=== PATIENT | male | born 1955 | race Caucasian/White ===

== ENCOUNTER 2020-11-07 08:36 | Outpatient (CLI) | payer MEDICARE, SELFPAY ==
--- NOTE | ~2020-11-07 | XR_ITS ---
MODIFIED ESOPHAGRAM HISTORY: Dysphagia. TECHNIQUE: Modified barium esophagram was performed by speech pathologist under radiologist fluorosco pic guidance. This was recorded on tape. The exam was reviewed on 11/07/2020 11:54 PROSTHETIC LAB TECHNICIAN. The DAP for this procedure was DAP is 1.2 Gycm2. Fluoroscopy time is 1.9 minutes. FINDINGS: Lateral projection of the cervical spine demonstrates normal alignment. Mild spondylosis with ventral osteophytes at multiple levels.. Oral stage of swallowing was within normal limits. Duri ng pharyngeal stage there is reduced laryngeal elevation, reduced tongue base retraction, reduced pha ryngeal squeeze with follicular, piriform sinus and pharyngeal wall residue. There is trace laryngeal penetration which is injected with swallow. No evidence for aspiration. IMPRESSION: 1: Trace laryngeal penetration without aspiration. 2: Please refer to speech pathologist report for additional detail. Reviewed, dictated and finalized at location A. THETIC LAB TECHNICIAN
--- NOTE | 2020-11-08 15:56 | STOPEVAL ---
MODIFIED BARIUM SWALLOW: Thank you for referring Barrington Burgos to [facility].? Attending Provider: MD GEETA Obrien Outpatient Evaluation ([facility]) Start: 11/08/20 15:37 Freq: Status: Active Protocol: Document 11/08/20 15:37 BECHERERT (Rec: 11/08/20 15:56 BECHERERT [email or web address]) Therapy Assessment Status Assessment Status Assessment Status Evaluation Outpatient Past Medical History Past Medical History Source of Past Medical History Patient Neurological History Hx Migraine Yes: MEDS Cardiovascular History Hx Hypertension Yes: MEDS Gastrointestinal History Hx Cholecystectomy Yes Hx Gastroesophageal Reflux Disease Yes: MEDS Hx Irritable Bowel Yes Hx Other Gastrointestinal Disorders Yes: UGI 5 years ago;was told his flap doesn't close all the way Evaluation Information Problem Diagnosis DYSPHAGIA Onset decade long issue Additional Evaluation Detail pt reports difficulty with pills; sore throat off and on for years; pt reports that he feels its related to GERD and drainage. Pain Assessment Timing of Pain Assessment Timing of Pain Assessment Assessment Self Report Self Report Pain Level 0 Pain Score Pain Score 0: Self Report Modified Barium Swallow Evaluation Recent Swallowing History Reports Dysphagia Yes Onset of Dysphagia decades long problem Reported Difficult Consistencies Pills,Solids Intake Method Prior to Swallow Oral Evaluation Diet Prior to Swallow Evaluation Regular, Level 7 Liquid Consistency Prior to Swallow Thin (0) Evaluation Consistency Barium Pill Other Amount with water Method of Presentation Cup Oral Preparatory Symptoms None Oral Phase Symptoms None Pharyngeal Phase Symptoms None Severity of Vallecular Residue None - 0% No Residue Severity of Pyriform Sinus Residue None - 0% No Residue 8 Point Laryngeal Penetration-Aspiration Material Does Not Enter Airway Scale Cervical/Esophageal Symptoms None Thin Uncontrolled 2 Method of Presentation Straw Oral Preparatory Symptoms None Oral Phase Symptoms None Pharyngeal Phase Symptoms Within Functional Limits, Laryngeal Penetration 8 Point Laryngeal Penetration-Aspiration Material Enters the Airway, Scale Remains Above Vocal Folds, is Ejected Cervical/Esophageal Symptoms Within Functional Limits Cervical/Esophageal Phase Comments osteophytes at C 4/5: per
== END 2020-11-07 08:37 | disposition home or self-care (01) ==
PROVIDERS: PCP Internal Medicine; Visit Provider Internal Medicine
DX: R13.10 Dysphagia, unspecified (principal)
CPT/HCPCS: 92611

== ENCOUNTER 2020-11-16 12:20 | Outpatient (RCR) | payer MEDICARE, SELFPAY ==
--- NOTE | 2020-11-16 13:49 | STOPEVAL ---
SPEECH THERAPY INITIAL EVALUATION: Thank you for referring Barrington Burgos to [facility].? The patient is scheduled to be seen for therapy? 1x/week for 4 weeks. Please review, sign, date and return this plan of care TAI. I agree with and certify that the following plan of care is medically necessary. Referring Physician Date Attending Provider: Joni Watt MD *ST Outpatient Evaluation Start: 11/16/20 12:36 Freq: Status: Active Protocol: Document 11/16/20 12:36 BECHERERT (Rec: 11/16/20 13:49 BECHERERT [email or web address]) Therapy Assessment Status Assessment Status Assessment Status Evaluation Outpatient Past Medical History Past Medical History Source of Past Medical History Patient Neurological History Hx Migraine Yes: MEDS propranolol Cardiovascular History Hx Hypertension Yes: MEDS Gastrointestinal History Hx Cholecystectomy Yes Hx Gastroesophageal Reflux Disease Yes: MEDS Hx Irritable Bowel Yes Hx Other Gastrointestinal Disorders Yes: UGI 5 years ago;was told his flap doesn't close all the way Prior Level of Function Prior Swallow Level Prior Intake Method Oral Prior Diet Regular (Level 7 Diet) Prior Liquid Consistency Thin (Level 0 Diet) Pain Assessment Pain Scale Pain Scale Used Numeric (1 - 10) Self Report Pain Assessment Throat Reported Pain Level 1 Pain Frequency Intermittent Other Pain Aggravating Factors was told that it is related to drainage Pain Behaviors None Pain Score Pain Score 1: Self Report Interventions Used Interventions Used By Clinicians Education Bedside Swallow Evaluation General Reports Dysphagia Yes Duration of Dysphagia decade long trouble Related History back surgery (lumbar 3-4) Reported Difficult Consistencies Saliva,Thin Liquids,Solids, Pills Meal Observed Bedside Swallows History of Dysphagia No Other Factors Impacting Dysphagia None History of Pneumonia No Intake Method Prior to Swallow Oral Evaluation Diet Prior to Swallow Evaluation Regular, Level 7 Liquid Consistency Prior to Swallow Thin (0) Evaluation Cognition During Swallowing Alert,Attentive Consistency Solid Consistency Other Swallow Amount cracker Method of Presentation Spoon Behaviors Observed Apparently Normal Swallow Occurrence of Coughing None Vocal Quality After Swallowing Clear Swallow Palpation Results Good Swallow Initiation,Strong
--- NOTE | 2020-12-13 08:56 | PCSTNOTE ---
SPEECH THERAPY DISCHARGE: Attending Provider: Joni Watt MD Patient:Barrington Burgos Date of :1955 Patient has not returned for any further treatments since 11/15/2020, therefore he will be discharged at this time. Patient?s initial visit was on 11/16/2020 09:00 which was his only visit. In that visit the pt was given a HEP with which he verbalized and demonstrated understanding. Thank you for referring this patient to [facility]. Please review, sign, date and return this discharge summary TAI. I have been updated about the patient's current status and I agree with discharge from the above service at this time. Referring Physician Date
== END 2020-12-13 11:14 | disposition home or self-care (01) ==
LOC: ANHST 12:20
PROVIDERS: PCP Internal Medicine; Visit Provider Internal Medicine
DX: R13.10 Dysphagia, unspecified (principal)
CPT/HCPCS: 92610

== ENCOUNTER 2021-06-21 06:44 | Outpatient (CLI) | payer MEDICARE, SELFPAY ==
--- NOTE | ~2021-06-21 | CT_ITS ---
EXAMINATION: CT chest abdomen pelvis w con DATE: 06/21/2021 08:35 CDT INDICATION: Occupational exposure to chemical pollution TECHNIQUE: Computed tomography (CT) of the chest, abdomen, and pelvis was performed with 100 cc Omnip aque 350 intravenous contrast. The dose-length product was 481.13 mGy-cm. Automated exposure control and iterative reconstruction technique were employed. COMPARISON: CT dated 04/22/2018 FINDINGS: CHEST CT: No thoracic lymphadenopathy. No significant pleural or pericardial effusion. Heart size is normal. No evidence for aortic aneurysm or dissection. There is coronary atherosclerosis. There are a few scatt ered calcified granulomas. Dependent atelectasis. No endobronchial lesions. No suspicious pulmonary n odules or masses. ABDOMEN/PELVIS CT: Status post cholecystectomy. There are small subcentimeter hypodensities of the liver, too small to c haracterize, although likely benign. There is a small splenic cyst, also likely benign. The pancreas, adrenal glands and kidneys are unremarkable. No evidence for aortic aneurysm. No lymphadenopathy. No nobstructive bowel gas pattern. There are surgical changes in the right hip. There are degenerative c hanges in both hips. There is a bone marrow donor site in the right ilium. Small fat-containing umbil ical hernia. Colonic diverticulosis without evidence for diverticulitis. There is surgical fusion at L3-4. IMPRESSION: 1. No acute abnormality of the chest, abdomen or pelvis. Reviewed, dictated and finalized at location A.
== END 2021-06-21 06:45 | disposition home or self-care (01) ==
PROVIDERS: PCP Internal Medicine; Visit Provider Internal Medicine
DX: Z77.098 Contact with and (suspected) exposure to other hazardous, chiefly nonmedicinal, chemicals (principal); I10 Essential (primary) hypertension
CPT/HCPCS: 71260; 74177; Q9967

== ENCOUNTER 2021-12-02 21:43 | Emergency (ER) | payer MEDICARE, SELFPAY ==
--- NOTE | ~2021-12-02 | XR_ITS ---
EXAMINATION: XR chest 2V DATE: 12/02/2021 22:49 INDICATION: Shortness of breath. Palpitations. TECHNIQUE: Frontal and lateral views of the chest were obtained. COMPARISON: Chest 2 views 10/20/2019 FINDINGS: There is mild atelectasis in the lower lung zones. No pleural effusion or pneumothorax. The heart size is normal. Surgical clips in the right upper quadrant are likely from cholecystectomy. IMPRESSION: 1. Mild atelectasis in the lower lung zones. Reviewed, dictated and finalized at location A. RIOR DECORATOR
--- NOTE | 2021-12-02 21:44 | ECG_ITS ---
Measurements Intervals [place] Rate: 70 P: [place]: 0 QRS: 40 QRSD: 102 T: 68 QT: 370 QTc: 400 Interpretive Statements SINUS RHYTHM SUPRAVENTRICULAR BIGEMINY INCOMPLETE RIGHT BUNDLE BRANCH BLOCK BASELINE ARTIFACT- I, II, III, AVR, AVL, AVF, V1-V3 ABNORMAL ECG Electronically Signed On 12-03-2021 6:37:37 TECHNICAL MGR by Jaun Sanchez D.O.
[2021-12-02 21:49] VITALS: BP 179/76; PULSE 37; RESP 18; TEMP 36; O2SAT 100
--- NOTE | 2021-12-02 22:00 | ECG_ITS ---
Measurements Intervals [place] Rate: 65 P: 50 [place]: 180 QRS: 41 QRSD: 109 T: 51 QT: 389 QTc: 406 Interpretive Statements SINUS RHYTHM INCOMPLETE RIGHT BUNDLE BRANCH BLOCK MINIMAL Q WAVES- INFERIOR LEADS BASELINE ARTIFACT- II, III, AVR, AVF, V3-V6 BORDERLINE ECG Electronically Signed On 12-03-2021 6:38:06 [employer] OFFICER by Jaun Sanchez D.O.
[2021-12-02] MEDS: ASPIRIN 81 MG CHEWABLE TABLET 324 MG PO (22:09)
[2021-12-02 22:14] LABS: Basophils Percent Auto 0.8 % (0.2-1.2); Eosinophils Absolute Auto 0.1 K/mm3 (0-0.3); Eosinophils Percent Auto 1.9 % (0-4.4); Hematocrit 48.8 % (42.0-52.0); Hemoglobin 15.9 g/dL (14.0-18.0); Immature Granulocyte Absolute 0.01 K/mm3 (0.00-0.031); Immature Granulocyte Percent A 0.2 % (0-0.5); Lymphocytes Absolute Auto 2.32 K/mm3 (0.9-3.2); Lymphocytes Percent Auto 44.6 % (18.3-44.2); Mean Corpuscular HGB Conc 32.6 g/dl (32-36); Mean Corpuscular Hemoglobin 29.8 pg (26-34); Mean Corpuscular Volume 91.4 fl (80-100); Monocytes Absolute Auto 0.5 K/mm3 (0.1-0.6); Monocytes Percent Auto 9.2 % (2.6-8.5); Neutrophils Absolute Auto 2.3 K/mm3 (1.3-6.7); Neutrophils Percent Auto 43.3 % (45.5-73.1); Platelet Count Result 179 k/mm3 (150-375); Red Blood Count 5.34 M/mm3 (4.6-6.20); Red Cell Distribution Width 12.6 % (11.5-14.5); White Blood Count 5.2 K/mm3 (4.5-10.0)
[2021-12-02 22:23] LABS: Prothrombin Time 12.8 Seconds (11.1-14.7)
[2021-12-02 22:24] LABS: Alanine Aminotransferase 76 U/L (4-50); Albumin Level 4.6 g/dL (3.5-5.1); Alkaline Phosphatase 72 U/L (38-126); Anion Gap 2 mmol/L (8-16); Aspartate Amino Transferase 43 U/L (17-59); Bilirubin,Total 0.6 mg/dL (0.2-1.3); Blood Urea Nitrogen 19 mg/dL (9-20); Carbon Dioxide 32 mmol/L (22-30); Chloride 104 mmol/L (98-107); Estimated CRCL calculation 60 ml/min; Estimated Glomerular Filt Rate > 60; Glucose 108 mg/dL (65-110); Lipase 84 U/L (23-300); Partial Thromboplastin Time 29.9 SECONDS (22.3-36.8); Potassium 3.7 mmol/L (3.4-5.0); Sodium 138 mmol/L (137-145)
[2021-12-02 22:29] VITALS: PULSE 73
--- NOTE | 2021-12-02 22:29 | PC.NURSE ---
Pt was in bigeminal rhythm on arrival to ED, upon new EKG pt is in sinus rhythm. Cardiac assessment updated to show change
--- NOTE | 2021-12-02 22:33 | ED.ARRPALP ---
HPI - Arrhythmia/Palpitations General Chief Complaint: Arrhythmia/Palpitations Stated Complaint: irregular heart beat , shortness of breath Time Seen by Provider: 12/02/21 21:58 Source: patient History of Present Illness HPI narrative: Patient presents with palpitations. Reports he had a episode that lasted approximately 1 hour 1 week ago of the past 48 hours he has had episodes with physical activity. He describes a sensation of his heart skipping a beat. Reports a history of ablation 15 years ago is unsure of his underlying diagnosis and has been feeling well since then. Reports mild shortness of breath when his symptoms come on when he denies any recent fevers, cough, congestion, recent travel, recent hospitalizations or surgeries. Related Data Home Medications Medication Instructions Recorded Confirmed tamsulosin 0.4 mg capsule 0.4 mg PO DAILY 11/10/20 06/27/21 colesevelam 625 mg tablet 625 mg PO BID tablet 05/29/21 06/27/21 erenumab-aooe 140 mg/mL 140 mg SUBCUT MONTHLY 09/13/21 subcutaneous auto-injector Allergies Allergy/AdvReac Type Severity Reaction Status Date / Time No Known Allergies Allergy Verified 12/02/21 21:53 Review of Systems Review of Systems: CONSTITUTIONAL: Denies fever, chills, or sweats. EYES: Denies visual changes, redness, or discharge. ENT: Denies rhinorrhea, congestion, sore throat, or otalgia. CARDIOVASCULAR: Denies chest pain, or edema. RESPIRATORY: Denies cough or dyspnea. GASTROINTESTINAL: Denies abdominal pain, nausea, vomiting, or diarrhea. GENITOURINARY: Denies dysuria or hematuria. SKIN: Denies rash or itching. MUSCULOSKELETAL: Denies back pain, joint pain, or myalgia. NEUROLOGIC: Denies headache, numbness, dizziness, or weakness. PSYCHIATRIC: Denies anxiety or depression. All systems reviewed & are unremarkable except as noted in HPI and below PMFSH Past Medical History Medical History Abnormal MRI, pelvis Allergic rhinitis Anxiety Benign essential hypertension Bilateral leg pain BMI 24.0-24.9, adult BMI 25.0-25.9,adult BMI 26.0-26.9,adult BMI 27.0-27.9,adult BPPV (benign paroxysmal positional vertigo) Chest wall pain Chronic back pain Chronic low back pain Chronic sore throat CTS (carpal tunnel syndrome) Dupuytren's contracture of right hand Dysphagia Elevated blood pressure reading without diagnosis of hypertension Elevated glucose Encounter for Medicare annual wellness exam Encounter for routine adult health examination with abnormal findings Encounter for routine adult health examination without abnormal findings Encounter for special screening examination for neoplasm of prostate Follow up Groin pain Hearing loss Hx of supraventricular tachycardia Hyperlipidemia Low back pain LPRD (laryngopharyngeal reflux disease) Migraines Muscle spasms of lower extremity Numbness and tingling of upper and lower extremities of both sides On senior living drug therapy Onychomycosis Paresthesia of both feet Paresthesia of both hands Postsurgical dumping syndrome Raynauds syndrome Toe pain, bilateral Vitamin D deficiency Family History Family History Father Family history of malignant neoplasm of urinary bladder Mother Acute myocardial infarction Family history of cardiovascular disease Family history of heart disease in male family member before age 55 Other Hypertension Social History Social History Smoking status: Never smoker Second hand tobacco smoke exposure: No Alcohol intake: never Substance use: former Substance use type: marijuana Last use: [employer] Spiritual care concerns: No Exam Narrative: GENERAL: Well-appearing, well-nourished, and in no acute distress. HEAD: Normocephalic, atraumatic. EYES: PERRLA and EOMI. ENT: Nares clear, no rhinorrhea or epistaxis. Mucous memb
[2021-12-02 22:36] LABS: Troponin I < 0.012 ng/mL (0.000-0.034)
[2021-12-02 23:36] VITALS: BP 132/88; PULSE 66; RESP 16; O2SAT 97
== END 2021-12-02 23:37 | disposition home or self-care (01) ==
PROVIDERS: Emergency Provider Emergency Medicine; PCP Internal Medicine
DX: R00.2 Palpitations (principal); E78.5 Hyperlipidemia, unspecified; K21.9 Gastro-esophageal reflux disease without esophagitis; I73.00 Raynaud's syndrome without gangrene; E55.9 Vitamin D deficiency, unspecified; M72.0 Palmar fascial fibromatosis [Dupuytren]; F41.9 Anxiety disorder, unspecified; R00.8 Other abnormalities of heart beat; I45.10 Unspecified right bundle-branch block; R06.02 Shortness of breath
CPT/HCPCS: 36415; 71046; 80053; 83690; 84484; 85025; 85610; 85730; 93005; 99284; A9270

== ENCOUNTER 2022-05-27 01:02 | Day surgery (SDC) | payer MEDICARE, SELFPAY ==
[2022-04-05 11:34] VITALS: BMI 25.2
--- NOTE | 2022-05-26 11:34 | PM.HPGS ---
History of Present Illness History of Present Illness Consent: Risks, benefits, and alternatives have been discussed and questions answered. Patient agrees to proceed with procedure. Chief complaint: family hx of colon polyps Narrative: Barrington Burgos is a 66 year old male referred for colon cancer screening. There is a family history of polyps. He has a history of irritable bowel syndrome for which she has been on dicyclomine which does give him relief of pain that he has had on the left side. He has in the past also taking cholestyramine and other bile sequestrant for possible bile salt diarrhea. Review of Systems Review of Systems: All systems reviewed & are unremarkable except as noted in HPI and below PMFSH Past Medical History Medical History Abnormal MRI, pelvis Allergic rhinitis Anxiety Benign essential hypertension Bilateral leg pain BMI 24.0-24.9, adult BMI 25.0-25.9,adult BMI 26.0-26.9,adult BMI 27.0-27.9,adult BPPV (benign paroxysmal positional vertigo) Chest wall pain Chronic back pain Chronic low back pain Chronic sore throat CTS (carpal tunnel syndrome) Dupuytren's contracture of right hand Dysphagia Elevated blood pressure reading without diagnosis of hypertension Elevated glucose Encounter for Medicare annual wellness exam Encounter for routine adult health examination with abnormal findings Encounter for routine adult health examination without abnormal findings Encounter for special screening examination for neoplasm of prostate Follow up Groin pain Hearing loss Hx of supraventricular tachycardia Hyperlipidemia Low back pain LPRD (laryngopharyngeal reflux disease) Migraines Mitral valve regurgitation Muscle spasms of lower extremity Numbness and tingling of upper and lower extremities of both sides On manager long term care drug therapy Onychomycosis Paresthesia of both feet Paresthesia of both hands Postsurgical dumping syndrome Raynauds syndrome SOB (shortness of breath) Toe pain, bilateral Vitamin D deficiency Family History Family History Father Family history of malignant neoplasm of urinary bladder Mother Acute myocardial infarction Family history of cardiovascular disease Family history of heart disease in male family member before age 55 Other Hypertension Social History Social History Smoking status: Never smoker Second hand tobacco smoke exposure: No Alcohol intake: never Substance use: former Substance use type: marijuana Last use: highschool Living arrangements: with family Spiritual care concerns: No Meds Home Medications and Allergies Home Medications Medication Instructions Recorded Confirmed Type erenumab-aooe 140 mg/mL 140 mg subcut MONTHLY 09/13/21 05/22/22 History subcutaneous auto-injector (Aimovig Autoinjector) diclofenac sodium 75 mg 75 mg PO DAILY 04/05/22 05/22/22 History tablet,delayed release escitalopram oxalate 10 mg tablet 10 mg PO DAILY 04/05/22 05/22/22 History ezetimibe 10 mg tablet 10 mg PO DAILY 04/05/22 05/22/22 History gabapentin 600 mg tablet 600 mg PO TID 04/05/22 05/22/22 History irbesartan 150 mg tablet 150 mg PO DAILY 04/05/22 05/22/22 History omeprazole 40 mg capsule,delayed 40 mg PO DAILY 04/05/22 05/22/22 History release pravastatin 80 mg tablet 80 mg PO DAILY 04/05/22 05/22/22 History Allergies Allergy/AdvReac Type Severity Reaction Status Date / Time No Known Allergies Allergy Verified 05/27/22 06:25 Exam Resp: Auscultation: clear to auscultation bilaterally Cardio: Rate: regular rate Rhythm: regular rhythm GI: GI Palp: Yes Soft to palpation and No Tenderness to palpation present (GI) Assessment and Plan Assessment and plan (1) Colon cancer screening: Code(s): Z12.11 - Encounter for screening for malignant neoplasm
[2022-05-27] MEDS: LACTATED RINGERS 1,000 ML 150 ML IV CONT (06:49)
[2022-05-27 06:50] VITALS: BP 132/81; PULSE 55; RESP 16; TEMP 36.3; O2SAT 99
--- NOTE | 2022-05-27 07:01 | WPDANESEPPF ---
Anes - Initial Pre Proc Eval Procedure: Operation Date: 05/27/22 07:30 Proposed Procedures p Screening Colonoscopy - Ernesto Mckeon MD Date/Time: 05/27/22 07:01 Surgeon: Ernesto Mckeon MD Pre Op Diagnosis: family hx of colon polyps Patient Data Age: 66 Gender: M Height: 1.7 m Weight: 71.3 kg Last Vital Signs Temp 36.3 C L 05/27/22 06:50 Pulse 55 L 05/27/22 06:50 Resp 16 05/27/22 06:50 BP 132/81 05/27/22 06:50 Pulse Ox 99 05/27/22 06:50 O2 Del Method Room Air 05/27/22 06:50 Allergies Allergy/AdvReac Type Severity Reaction Status Date / Time No Known Allergies Allergy Verified 05/27/22 06:25 Home Medications Medication Instructions Recorded Confirmed Type erenumab-aooe 140 mg/mL 140 mg subcut MONTHLY 09/13/21 05/22/22 History subcutaneous auto-injector (Aimovig Autoinjector) diclofenac sodium 75 mg 75 mg PO DAILY 04/05/22 05/22/22 History tablet,delayed release escitalopram oxalate 10 mg tablet 10 mg PO DAILY 04/05/22 05/22/22 History ezetimibe 10 mg tablet 10 mg PO DAILY 04/05/22 05/22/22 History gabapentin 600 mg tablet 600 mg PO TID 04/05/22 05/22/22 History irbesartan 150 mg tablet 150 mg PO DAILY 04/05/22 05/22/22 History omeprazole 40 mg capsule,delayed 40 mg PO DAILY 04/05/22 05/22/22 History release pravastatin 80 mg tablet 80 mg PO DAILY 04/05/22 05/22/22 History Patient hx anesthesia problems: none Family hx anesthesia problems: none Results Review: All pre-operative results and documents have been reviewed as part of the pre-operative evaluation. COUNT INCLUDES THE [facility] Past Medical History Medical History (Updated 01/24/22 @ 07:25 by Latanya Damon [facility]) Abnormal MRI, pelvis Allergic rhinitis Anxiety Benign essential hypertension Bilateral leg pain BMI 24.0-24.9, adult BMI 25.0-25.9,adult BMI 26.0-26.9,adult BMI 27.0-27.9,adult BPPV (benign paroxysmal positional vertigo) Chest wall pain Chronic back pain Chronic low back pain Chronic sore throat CTS (carpal tunnel syndrome) Dupuytren's contracture of right hand Dysphagia Elevated blood pressure reading without diagnosis of hypertension Elevated glucose Encounter for Medicare annual wellness exam Encounter for routine adult health examination with abnormal findings Encounter for routine adult health examination without abnormal findings Encounter for special screening examination for neoplasm of prostate Follow up Groin pain Hearing loss Hx of supraventricular tachycardia Hyperlipidemia Low back pain LPRD (laryngopharyngeal reflux disease) Migraines Mitral valve regurgitation Muscle spasms of lower extremity Numbness and tingling of upper and lower extremities of both sides On senior care drug therapy Onychomycosis Paresthesia of both feet Paresthesia of both hands Postsurgical dumping syndrome Raynauds syndrome SOB (shortness of breath) Toe pain, bilateral Vitamin D deficiency Family History Family History Father Family history of malignant neoplasm of urinary bladder Mother Acute myocardial infarction Family history of cardiovascular disease Family history of heart disease in male family member before age 55 Other Hypertension Social History Social History Smoking status: Never smoker Second hand tobacco smoke exposure: No Alcohol intake: never Substance use: former Substance use type: marijuana Last use: highschool Living arrangements: with family Spiritual care concerns: No Anes - Eval Final PreProcedure Day of Procedure 05/27/22 07:01 Patient weight: normal Heart: regular rate and rhythm Lungs: clear to auscultation and normal air movement Airway: Mallampati scale class II Neurological: alert and oriented Last oral intake: >/= 8 hours ASA classification: II Emergent: no Anesthetic plan: proceed Anesthesia type and monitoring: general
[2022-05-27 07:47] VITALS: BP 134/95; PULSE 62; RESP 15; O2SAT 97
[2022-05-27 07:57] VITALS: BP 132/90; PULSE 65; RESP 19; O2SAT 100
[2022-05-27 08:07] VITALS: BP 134/87; PULSE 60; RESP 19; O2SAT 100
== END 2022-05-27 08:20 | disposition home or self-care (01) ==
PROVIDERS: PCP Internal Medicine; Visit Provider Internal Medicine Gastroenterology
PROC: 0DJD8ZZ Inspection of Lower Intestinal Tract, Via Natural or Artificial Opening Endoscopic (ICD-10-PCS; CPT 45378; principal; 2022-05-27 07:30)
DX: Z12.11 Encounter for screening for malignant neoplasm of colon (principal); K57.30 Diverticulosis of large intestine without perforation or abscess without bleeding; K64.8 Other hemorrhoids; F41.9 Anxiety disorder, unspecified; I10 Essential (primary) hypertension; H81.10 Benign paroxysmal vertigo, unspecified ear; E78.5 Hyperlipidemia, unspecified; I34.0 Nonrheumatic mitral (valve) insufficiency; I73.00 Raynaud's syndrome without gangrene; E55.9 Vitamin D deficiency, unspecified; F12.90 Cannabis use, unspecified, uncomplicated; K58.9 Irritable bowel syndrome, unspecified
CPT/HCPCS: G0105; J2704; J7120

== ENCOUNTER 2022-08-21 14:44 | Outpatient (CLI) | payer MEDICARE, SELFPAY ==
--- NOTE | ~2022-08-21 | XR_ITS ---
EXAMINATION: XR femur RT min 2V INDICATION: Right hip pain, other specified disorders of the bone and thigh TECHNIQUE: Two views of the right femur are obtained on five radiographs. COMPARISON: None available FINDINGS: There is chronic plate and screw fixation of the proximal and mid right femur. Bone alignme nt is normal. No fracture is identified. There is moderate to severe osteoarthritis of the right hip. Calcified atherosclerosis is noted. Heterotopic ossification projects posterior to the right knee. IMPRESSION: 1. Moderate to severe osteoarthritis of the right hip without acute osseous abnormality of the right femur. Reviewed, dictated and finalized at location B. IMPRESSION: 1. Moderate to severe osteoarthritis of the right hip without acute osseous abn ormality of the right femur.
--- NOTE | ~2022-08-21 | XR_ITS ---
EXAMINATION: XR hip RT 2V w AP pelvis INDICATION: Right hip pain TECHNIQUE: AP view the pelvis and two views of the right hip are obtained. COMPARISON: None available FINDINGS: There is partially imaged internal stabilization hardware of the right femur. There is mode rate to severe osteoarthritis of the right hip. Bone alignment is normal. No fracture is identified. Surgical changes are noted in the lumbar spine. There are phleboliths of the pelvis. IMPRESSION: 1. Moderate to severe osteoarthritis of the right hip. Reviewed, dictated and finalized at location B.
== END 2022-08-21 14:45 | disposition home or self-care (01) ==
PROVIDERS: PCP Internal Medicine; Visit Provider Internal Medicine
DX: M89.8X5 Other specified disorders of bone, thigh (principal); M16.11 Unilateral primary osteoarthritis, right hip
CPT/HCPCS: 73502; 73552

== ENCOUNTER 2023-04-04 12:13 | Emergency (ER) | payer MEDICARE, SELFPAY ==
[2023-04-04 12:24] VITALS: BP 119/77; PULSE 76; RESP 16; TEMP 36.6; O2SAT 98
[2023-04-04 12:25] VITALS: BP 119/77; PULSE 76; RESP 16; TEMP 36.6; O2SAT 98
--- NOTE | 2023-04-04 12:29 | ED.URI ---
HPI - URI/Sore Throat General Chief Complaint: Upper Respiratory Infection Stated Complaint: Sore Throat Time Seen by Provider: 04/04/23 13:26 Source: patient and RN notes reviewed Mode of arrival: ambulatory Limitations: no limitations History of Present Illness HPI Narrative: 67-year-old male presents with concern for cough, sore throat, nasal congestion. Reports this is day 3 of symptoms. He denies known sick contacts. He denies body aches, chills, sweats, fever. He reports he took NyQuil last night. Reports he slept with a fan for 2 nights in a row which he normally does not MD elicited complaint: cough and sore throat Related Data Home Medications Medication Instructions Recorded Confirmed tamsulosin 0.4 mg capsule (Flomax) 0.4 mg PO BID 09/10/22 10/30/22 Allergies Allergy/AdvReac Type Severity Reaction Status Date / Time No Known Allergies Allergy Verified 04/04/23 12:24 Review of Systems Review of Systems: CONSTITUTIONAL: Denies malaise, chills, sweats, or fever. EYES: Denies visual changes, redness, or discharge. ENT: Reports rhinorrhea, congestion, sore throat. Denies sinus pain, otalgia CARDIOVASCULAR: Denies chest pain, palpitations, or edema. RESPIRATORY: Reports cough. Denies dyspnea. GASTROINTESTINAL: Denies abdominal pain, nausea, vomiting, diarrhea SKIN: Denies rash or itching. MUSCULOSKELETAL: Denies myalgia. NEUROLOGIC: Denies headache. All systems reviewed & are unremarkable except as noted in HPI and below [facility] Past Medical History Medical History (Updated 04/04/23 @ 13:33 by Anna Marie Jimenez NP) Abnormal MRI, pelvis Allergic rhinitis Anxiety Benign essential hypertension Bilateral impacted cerumen Bilateral leg pain BMI 24.0-24.9, adult BMI 25.0-25.9,adult BMI 26.0-26.9,adult BMI 27.0-27.9,adult BMI 27.0-27.9,adult BPPV (benign paroxysmal positional vertigo) Chest wall pain Chronic back pain Chronic low back pain Chronic sore throat CTS (carpal tunnel syndrome) Dizziness DJD (degenerative joint disease) Dupuytren's contracture of right hand Dysphagia Elevated blood pressure reading without diagnosis of hypertension Elevated glucose Elevated PSA, between 10 and less than 20 ng/ml Encounter for Medicare annual wellness exam Encounter for routine adult health examination with abnormal findings Encounter for routine adult health examination without abnormal findings Encounter for special screening examination for neoplasm of prostate Follow up Generalized abdominal pain Groin pain Hearing loss Hx of colonic polyps Hx of supraventricular tachycardia Hyperlipidemia Laceration of left index finger Low back pain LPRD (laryngopharyngeal reflux disease) Migraines Mitral valve regurgitation Muscle spasms of lower extremity Numbness and tingling of upper and lower extremities of both sides On jail drug therapy Onychomycosis Paresthesia of both feet Paresthesia of both hands Postsurgical dumping syndrome Pre-diabetes Raynauds syndrome Right hip pain Sinus congestion Small fiber neuropathy SOB (shortness of breath) Toe pain, bilateral Vitamin D deficiency Family History Family History Father Family history of malignant neoplasm of urinary bladder Mother Acute myocardial infarction Family history of cardiovascular disease Family history of heart disease in male family member before age 55 Other Hypertension Social History Social History Smoking status: Never smoker Second hand tobacco smoke exposure: No Alcohol intake: never Substance use: former Substance use type: marijuana Last use: highschool Lack of Transportation: No Lack of Food: Never True Current Housing: I Have Housing Concerned About Future Housing: No Difficulty Paying Gas/Electric Bills: No Difficulty Paying for Meds: No Currently Unemployed: No Difficulty
== END 2023-04-04 13:38 | disposition home or self-care (01) ==
PROVIDERS: Emergency Provider Nurse Practitioner; PCP Internal Medicine
DX: J06.9 Acute upper respiratory infection, unspecified (principal); I10 Essential (primary) hypertension; E78.5 Hyperlipidemia, unspecified; I34.0 Nonrheumatic mitral (valve) insufficiency; R73.03 Prediabetes
CPT/HCPCS: 87081; 87880; 99213; G0463

== ENCOUNTER 2023-04-17 12:10 | Emergency (ER) | payer MEDICARE, SELFPAY ==
[2023-04-17] VITALS (10 sets, daily range): BP systolic 90–144; BP diastolic 58–85; PULSE 55–70; RESP 14–20; TEMP 36.9; O2SAT 96–100
--- NOTE | ~2023-04-17 | XR_ITS ---
EXAMINATION: XR chest 2V 04/17/2023 14:00 INDICATION: Weakness. Near syncope. PROCEDURE: 2 view chest COMPARISON: Comparison to multiple prior studies sequentially, with oldest reviewed study dated 12/2011. FINDINGS: The lungs are clear. The cardiomediastinal silhouette is within normal limits. There are no pleural effusions. There is no pneumothorax suspected. IMPRESSION: 1: NO ACUTE CARDIOPULMONARY DISEASE. Reviewed, dictated and finalized at location L.
--- NOTE | 2023-04-17 13:52 | ECG_ITS ---
Measurements Intervals [place] Rate: 58 P: 13 [place]: 142 QRS: 26 QRSD: 94 T: 30 QT: 388 QTc: 384 Interpretive Statements SINUS BRADYCARDIA INCOMPLETE RIGHT BUNDLE BRANCH BLOCK BORDERLINE ECG COMPARED TO ECG 12/02/2021 22:18:58 NO DIFFERENCE Electronically Signed On 04-18-2023 13:13:47 CDT by Yuriy Del Cid M.D.
[2023-04-17 14:20] LABS: Basophils Percent Auto 0.5 % (0.2-1.2); Eosinophils Percent Auto 0.2 % (0-4.4); Hematocrit 40.3 % (42.0-52.0); Hemoglobin 13.3 g/dL (14.0-18.0); Immature Granulocyte Absolute 0.01 K/mm3 (0.00-0.031); Immature Granulocyte Percent A 0.2 % (0-0.5); Lymphocytes Absolute Auto 0.34 K/mm3 (0.9-3.2); Lymphocytes Percent Auto 7.8 % (18.3-44.2); Mean Corpuscular Hemoglobin 30.8 pg (26-34); Mean Corpuscular Volume 93.3 fl (80-100); Mean Platelet Volume 9.3 fl (7.4-10.4); Monocytes Absolute Auto 0.6 K/mm3 (0.1-0.6); Monocytes Percent Auto 13.5 % (2.6-8.5); Neutrophils Absolute Auto 3.4 K/mm3 (1.3-6.7); Neutrophils Percent Auto 77.8 % (45.5-73.1); Platelet Count Result 147 k/mm3 (150-375); Red Blood Count 4.32 M/mm3 (4.6-6.20); Red Cell Distribution Width 12.6 % (11.5-14.5); White Blood Count 4.4 K/mm3 (4.5-10.0)
[2023-04-17 14:30] LABS: Alanine Aminotransferase 28 U/L (6-50); Albumin Level 3.8 g/dL (3.5-5.1); Alkaline Phosphatase 53 U/L (38-126); Anion Gap 2 mmol/L (8-16); Aspartate Amino Transferase 25 U/L (17-59); Bilirubin,Total 0.5 mg/dL (0.2-1.3); Blood Urea Nitrogen 21 mg/dL (9-20); Calcium 8.2 mg/dL (8.4-10.2); Carbon Dioxide 29 mmol/L (22-30); Chloride 103 mmol/L (98-107); Estimated CRCL calculation 63 ml/min; Estimated Glomerular Filt Rate > 60; Glucose 96 mg/dL (65-110); Potassium 4.3 mmol/L (3.4-5.0); Sodium 134 mmol/L (137-145)
[2023-04-17] MEDS: SODIUM CHLORIDE 0.9% IV 1,000 ML 999 ML IV CONT (15:39)
[2023-04-17 15:54] LABS: Appearance Urine Cloudy (Clear); Bacteria Urine None Seen /hpf; Bilirubin Urine 1+ (Negative); Blood Urine Negative (Negative); Color Urine Dark Yellow (Yellow); Glucose Urine UA Negative (Negative); Ketones Urine Trace mg/dL (Negative); Leukocyte Esterase Ur Trace LEU/UL (Negative); Mucus Urine Present /lpf; Need Manual Microscopic Reviewed; Nitrate Urine Negative (Negative); Non Pathogenic Casts >20; Protein Urine 2+ mg/dL (Negative); Squamous Epithelial Cell Urine Moderate /hpf (Few); WBC Urine 0-5 /hpf; pH Urine 5.5 (5.0-9.0)
--- NOTE | 2023-04-17 15:58 | ED.WEAKNESS ---
HPI - Weakness General Chief complaint: Weakness Stated complaint: lethargy Time Seen by Provider: 04/17/23 13:37 History of Present Illness HPI Narrative: Patient is a 67-year-old male with a history of hyperlipidemia, hypertension, arthritis presenting with near syncope. Patient states that he started feeling lightheaded last night. States that this morning he was walking through his kitchen when he felt like he was about to faint. States that he was able to make it to his kitchen table and sit down which improved his symptoms. States that he has been feeling generally fatigued lately. States he has had a sore throat and a cough for the last week. States that he was at urgent care a week ago and tested negative for strep and COVID. States that he had an episode of diarrhea couple days ago but no vomiting. No chest pain or abdominal pain. No shortness of breath or leg swelling. No dysuria or fevers. Denies further complaints. Related Data Home Medications Medication Instructions Recorded Confirmed tamsulosin 0.4 mg capsule (Flomax) 0.4 mg PO BID 09/10/22 04/25/23 diclofenac sodium 75 mg 75 mg PO BID 04/25/23 04/25/23 tablet,delayed release Allergies Allergy/AdvReac Type Severity Reaction Status Date / Time levofloxacin [From Levaquin] AdvReac Severe Gastrointestinal Verified 04/24/23 10:01 Upset Review of Systems Review of Systems: All systems reviewed & are unremarkable except as noted in HPI and below PMFSH Past Medical History Medical History (Updated 04/25/23 @ 16:14 by Hilda Blair PA-C) Allergic rhinitis Anxiety Basal cell carcinoma of back Benign essential hypertension Benign prostatic hyperplasia Chronic back pain Colon polyps Degenerative joint disease Elevated PSA Hearing loss Hyperlipidemia Laryngopharyngeal reflux disease Migraines Mitral valve regurgitation Raynauds syndrome Small fiber neuropathy Supraventricular tachycardia Vitamin D deficiency Surgical History Surgical History (Updated 04/25/23 @ 16:12 by Hilda Blair PA-C) History of basal cell carcinoma excision History of cardiac catheterization (12/16/13) Minimal, nonobstructing disease. History of cardiac radiofrequency ablation For supraventricular tachycardia. History of cholecystectomy History of colonoscopy with polypectomy History of lumbar surgery L3-L4 fusion, diskectomy and laminectomy L2-S1. History of open reduction and internal fixation (ORIF) procedure Repair of right femur fracture in 1974. History of repair of left rotator cuff History of tonsillectomy Family History Family History Father Family history of malignant neoplasm of urinary bladder Mother Acute myocardial infarction Family history of cardiovascular disease Family history of heart disease in male family member before age 55 Other Hypertension Social History Social History (Updated 04/25/23 @ 16:13 by Hilda Blair PA-C) Social History: Surrogate medical decision maker: Yvrose Burgos, spouse. Code status: Full code. Smoking status: Never smoker Second hand tobacco smoke exposure: No Alcohol intake: never Substance use: never Substance use type: marijuana Last use: highschool Lack of Transportation: No Lack of Food: Never True Current Housing: I Have Housing Concerned About Future Housing: No Difficulty Paying Gas/Electric Bills: No Difficulty Paying for Meds: No Currently Unemployed: No Education: Bachelor's Degree Difficulty w/ Childcare or Family Care: No Living arrangements: with family Additional living arrangements comments: Lives with spouse in [place]. 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 Spiritual care concerns: No Exam Narrative: GENERAL: Well-appearing, well-nourished, and in no acute distress. HEAD: Normocephalic, atraumatic
[2023-04-17 16:00] LABS: Add Urine Microscopic? YES; Specific Grav Ur 1.036 (1.001-1.035)
[2023-04-17 16:30] LABS: Lactic Acid Reflex 0.7 mmol/L (0.7-2.0)
[2023-04-17 16:38] LABS: INR 1.1; Partial Thromboplastin Time 31.9 SECONDS (22.3-36.8); Prothrombin Time 14.5 Seconds (11.1-14.7)
[2023-04-17 16:46] LABS: Troponin I < 0.012 ng/mL (0.000-0.034)
[2023-04-17 19:11] LABS: Influenza A QL RT-PCR Negative (Negative); Influenza B QL RT-PCR Negative (Negative); RSV RNA, RT-PCR Negative (Negative); SARS-CoV-2 RNA PCR Positive (Negative)
[2023-04-17 19:49] LABS: Troponin I < 0.012 ng/mL (0.000-0.034)
[2023-04-17 22:52] LABS: Troponin I < 0.012 ng/mL (0.000-0.034)
== END 2023-04-17 22:50 | disposition home or self-care (01) ==
PROVIDERS: Emergency Provider Emergency Medicine; PCP Internal Medicine
DX: U07.1 COVID-19 (principal); E86.0 Dehydration; R53.1 Weakness; I10 Essential (primary) hypertension; I34.0 Nonrheumatic mitral (valve) insufficiency; I73.00 Raynaud's syndrome without gangrene; M54.50 Low back pain, unspecified; G89.29 Other chronic pain; M72.0 Palmar fascial fibromatosis [Dupuytren]; R73.03 Prediabetes; G62.9 Polyneuropathy, unspecified; Z86.010 Personal history of colon polyps
CPT/HCPCS: 36415; 71046; 80053; 81001; 83605; 84484; 85025; 85610; 85730; 87637; 93005; 96360; 99284; J7030

== ENCOUNTER 2023-04-23 09:17 | Outpatient (CLI) | payer MEDICARE, SELFPAY ==
--- NOTE | ~2023-04-23 | XR_ITS ---
XR chest 2V 04/23/2023 09:42 Indication: Shortness of breath, fever and cough Procedure: 2 view chest Comparison: 04/17/2023 Findings: Left basilar airspace disease. Heart size normal. Right lung clear. No pleural effusion or pneumothorax. No acute osseous abnormality. Impression: 1: Left basilar airspace disease may represent atelectasis or developing pneumonia. Reviewed, dictated and finalized at location [] Impression: 1: Left basilar airspace disease may represent atelectasis or developing pneumo emperatriz.
[2023-04-23 10:07] LABS: Basophils Percent Auto 0.3 % (0.2-1.2); Eosinophils Percent Auto 0.3 % (0-4.4); Hematocrit 45.1 % (42.0-52.0); Hemoglobin 14.7 g/dL (14.0-18.0); Immature Platelet Fraction Pct 3.9 % (0.9-11.2); Lymphocytes Absolute Auto 0.64 K/mm3 (0.9-3.2); Lymphocytes Percent Auto 21.2 % (18.3-44.2); Mean Corpuscular HGB Conc 32.6 g/dl (32-36); Mean Corpuscular Hemoglobin 30.3 pg (26-34); Monocytes Absolute Auto 0.3 K/mm3 (0.1-0.6); Monocytes Percent Auto 9.6 % (2.6-8.5); Neutrophils Absolute Auto 2.1 K/mm3 (1.3-6.7); Neutrophils Percent Auto 68.6 % (45.5-73.1); Platelet Count Result 150 k/mm3 (150-375); Red Blood Count 4.85 M/mm3 (4.6-6.20)
== END 2023-04-23 09:18 | disposition home or self-care (01) ==
PROVIDERS: PCP Internal Medicine; Visit Provider Internal Medicine
DX: R06.02 Shortness of breath (principal); R50.9 Fever, unspecified; R05.9 Cough, unspecified; R91.8 Other nonspecific abnormal finding of lung field
CPT/HCPCS: 36415; 71046; 85025; 85055

== ENCOUNTER 2023-04-25 11:19 | Observation (INO) | payer MEDICARE, SELFPAY ==
[2023-04-25] VITALS (11 sets, daily range): BP systolic 96–163; BP diastolic 66–89; PULSE 59–74; RESP 15–18; TEMP 35.9–36.4; O2SAT 98–99; BMI 24.3
--- NOTE | ~2023-04-25 | US_ITS ---
EXAMINATION: US carotid duplex BI DATE: 04/25/2023 23:09 INDICATION: Syncope TECHNIQUE: Grayscale, color Doppler, and pulsed Doppler images of the cervical carotid arteries were obtained. The degree of vessel stenosis is placed in one of the following categories: normal, <50%, 5 0-69%, >=70% but less than near-occlusion, near-occlusion, or total occlusion. Note that percent sten osis relative to normal distal artery lumen diameter is indirectly measured from velocity measurement s as described by Zhen, et al. Radiology 2003; [id number]. COMPARISON: None. FINDINGS: RIGHT: The right common carotid artery (CCA) peak systolic velocity (PSV) is 80.7 cm/s. The right internal c arotid artery (ICA) PSV is 88.6 cm/s. The right ICA end-diastolic velocity (EDV) is 32.5 cm/s. The ri t ICA/CCA PSV ratio is 1.1. Grayscale and color Doppler images yield an estimate of less than 50% d iameter reduction from plaque in the ICA. The external carotid artery (ECA) PSV is 87.2 cm/s. There i s antegrade flow in the right vertebral artery. LEFT: The left CCA PSV is 85.8 cm/s. The left ICA PSV is 100.6 cm/s. The left ICA EDV is 25.7 cm/s. The lef t ICA/CCA PSV ratio is 1.2. Grayscale and color Doppler images yield an estimate of less than 50% zayda meter reduction from plaque in the ICA. The ECA PSV is 93.0 cm/s. There is antegrade flow in the left vertebral artery. IMPRESSION: 1. Less than 50% stenosis in the right internal carotid artery. 2. Less than 50% stenosis in the left internal carotid artery. Reviewed, dictated and finalized at Location [facility]. Reviewed, dictated and finalized at location A.
--- NOTE | ~2023-04-25 | CT_ITS ---
EXAMINATION: CT BRAIN W/O DATE: 04/25/2023 12:29 INDICATION: Near syncope TECHNIQUE: Computed tomography (CT) of the head was performed without intravenous contrast. The dose- length product was 605.33 mGy-cm. Automated exposure control and iterative reconstruction technique w ere employed. COMPARISON: MRI dated 06/20/2009 FINDINGS: Normal brain parenchymal volume for age. Normal dhaliwal-white differentiation. No acute intrac ranial hemorrhage, infarction, mass or mass effect. No ventriculomegaly or midline shift. Midline sagittal images demonstrate a normal corpus callosum, c raniovertebral junction and sella turcica. Basilar cisterns are patent. Paranasal sinuses and mastoids are pneumatized. No depressed skull fractures. IMPRESSION: 1. No acute intracranial abnormality. Reviewed, dictated and finalized at location []
--- NOTE | ~2023-04-25 | CT_ITS ---
Clinical Indication: Near syncope, recent pneumonia/Covid CT Angiogram of the Chest with Contrast: Technique: Contiguous sections were acquired throughout the chest after intravenous administration of 100 cc of Omnipaque 350. Coronal maximum intensity projection 3-D reconstructions were created by darlene childs technologist. Dose reduction technique was used on this scan by utilizing automated exposure contr ol and iterative reconstruction technique. The dose-length product (DLP) was 605.33 mGy-cm. COMPARISON: 06/21/2021 Findings: There is no evidence of any significant mediastinal, hilar or axillary lymphadenopathy. There is no f illing defect in the pulmonary arterial tree to suggest pulmonary embolus. There is no evidence of ao rtic dissection or aneurysm. There is no evidence of pleural or pericardial effusion. There is mild groundglass opacity lungs, predominantly dependent distribution, with several periphera l smaller groundglass opacities are also present. Images through the upper abdomen reveal no abnormalities. Impression: No evidence of pulmonary embolus, aortic dissection, or aortic aneurysm. Groundglass opacity in the lungs, as detailed above. Findings are largely appear to represent depende nt atelectatic/hypoventilatory change, superimposed atypical infection or Covid infection is possible . Correlate clinically. Reviewed, dictated and finalized at location M. Impression: No evidence of pulmonary embolus, aortic dissection, or aortic aneurysm. Groundglass opacity in the lungs, as detailed above. Findings are largely appea r to represent dependent atelectatic/hypoventilatory change, superimposed atypi deirdre infection or Covid infection is possible. Correlate clinically.
--- NOTE | 2023-04-25 11:23 | ECG_ITS ---
Measurements Intervals [place] Rate: 58 P: 30 [place]: 129 QRS: 32 QRSD: 96 T: 22 QT: 419 QTc: 414 Interpretive Statements SINUS BRADYCARDIA INCOMPLETE RIGHT BUNDLE BRANCH BLOCK BORDERLINE ECG COMPARED TO ECG 04/17/2023 14:31:26 NO SIGNIFICANT CHANGES Electronically Signed On 04-25-2023 16:14:36 CDT by Yuriy Del Cid M.D.
[2023-04-25 11:39] LABS: Basophils Percent Auto 0.3 % (0.2-1.2); Eosinophils Percent Auto 0.3 % (0-4.4); Hematocrit 42.3 % (42.0-52.0); Hemoglobin 14.1 g/dL (14.0-18.0); Immature Granulocyte Absolute 0.02 K/mm3 (0.00-0.031); Immature Granulocyte Percent A 0.6 % (0-0.5); Lymphocytes Percent Auto 22.3 % (18.3-44.2); Mean Corpuscular HGB Conc 33.3 g/dl (32-36); Mean Corpuscular Hemoglobin 30.2 pg (26-34); Mean Corpuscular Volume 90.6 fl (80-100); Mean Platelet Volume 9.4 fl (7.4-10.4); Monocytes Absolute Auto 0.4 K/mm3 (0.1-0.6); Monocytes Percent Auto 11.8 % (2.6-8.5); Neutrophils Percent Auto 64.7 % (45.5-73.1); Platelet Count Result 200 k/mm3 (150-375); Red Blood Count 4.67 M/mm3 (4.6-6.20); Red Cell Distribution Width 11.8 % (11.5-14.5); White Blood Count 3.1 K/mm3 (4.5-10.0)
--- NOTE | 2023-04-25 11:40 | ED.WEAKNESS ---
HPI - Weakness General Chief complaint: Weakness Stated complaint: WEAKNESS Time Seen by Provider: 04/25/23 11:20 History of Present Illness HPI Narrative: 67-year-old male presents to the emergency room today for complaints of dizziness and lightheadedness. He was seen and evaluated last week on for similar complaints and tested positive for COVID. He had some congestion symptoms but says that this was getting better. He went for a drive in his car this morning and started to get very lightheaded and pulled over to call EMS. He did not pass out all the way but says he felt pretty close to passing out. His blood pressure was systolic in the 80s when EMS arrived. He says that he was actually starting to feel better by the time they checked his blood pressure. He says that he has been having lightheadedness when he goes from sitting to standing over the past few days. He does feel like he may be getting a little dehydrated. He denies having any chest pain or shortness of breath. No nausea, vomiting or abdominal pain. No diarrhea. Related Data Home Medications Medication Instructions Recorded Confirmed tamsulosin 0.4 mg capsule (Flomax) 0.4 mg PO BID 09/10/22 04/22/23 Allergies Allergy/AdvReac Type Severity Reaction Status Date / Time levofloxacin [From Levaquin] AdvReac Severe Gastrointestinal Verified 04/24/23 10:01 Upset Review of Systems Review of Systems: CONSTITUTIONAL: Denies fever, chills, or sweats. reports feeling tired/weak EYES: Denies visual changes, redness, or discharge. ENT: Denies rhinorrhea, congestion, sore throat, or otalgia. CARDIOVASCULAR: Denies chest pain, palpitations, or edema. RESPIRATORY: Denies cough or dyspnea. GASTROINTESTINAL: Denies abdominal pain, nausea, vomiting, or diarrhea. GENITOURINARY: Denies dysuria or hematuria. SKIN: Denies rash or itching. MUSCULOSKELETAL: Denies back pain, joint pain, or myalgia. NEUROLOGIC: As per HPI PSYCHIATRIC: Denies anxiety or depression. [facility] Past Medical History Medical History Abnormal MRI, pelvis Allergic rhinitis Anxiety Benign essential hypertension Bilateral impacted cerumen Bilateral leg pain BMI 24.0-24.9, adult BMI 25.0-25.9,adult BMI 26.0-26.9,adult BMI 27.0-27.9,adult BMI 27.0-27.9,adult BPPV (benign paroxysmal positional vertigo) BPPV (benign paroxysmal positional vertigo) Chest wall pain Chronic back pain Chronic low back pain Chronic sore throat CTS (carpal tunnel syndrome) Dizziness DJD (degenerative joint disease) Dupuytren's contracture of right hand Dysphagia Elevated blood pressure reading without diagnosis of hypertension Elevated glucose Elevated PSA Elevated PSA, between 10 and less than 20 ng/ml Encounter for Medicare annual wellness exam Encounter for routine adult health examination with abnormal findings Encounter for routine adult health examination without abnormal findings Encounter for special screening examination for neoplasm of prostate Follow up Generalized abdominal pain Groin pain Hearing loss Hx of colonic polyps Hx of supraventricular tachycardia Hyperlipidemia Laceration of left index finger Low back pain LPRD (laryngopharyngeal reflux disease) Migraines Mitral valve regurgitation Muscle spasms of lower extremity Numbness and tingling of upper and lower extremities of both sides 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
[2023-04-25 11:54] LABS: Alanine Aminotransferase 36 U/L (6-50); Albumin Level 3.9 g/dL (3.5-5.1); Alkaline Phosphatase 67 U/L (38-126); Anion Gap 6 mmol/L (8-16); Aspartate Amino Transferase 29 U/L (17-59); Bilirubin,Total 0.7 mg/dL (0.2-1.3); Blood Urea Nitrogen 20 mg/dL (9-20); Calcium 8.2 mg/dL (8.4-10.2); Carbon Dioxide 28 mmol/L (22-30); Chloride 104 mmol/L (98-107); Estimated CRCL calculation 54 ml/min; Estimated Glomerular Filt Rate > 60; Glucose 124 mg/dL (65-110); Potassium 4.1 mmol/L (3.4-5.0); Sodium 138 mmol/L (137-145)
[2023-04-25] MEDS: SODIUM CHLORIDE 0.9% IV 1,000 ML 999 ML IV CONT ×2 (12:08→13:43)
[2023-04-25 12:23] LABS: Magnesium 2.2 mg/dL (1.6-2.3)
[2023-04-25 12:25] LABS: Prothrombin Time 13.9 Seconds (11.1-14.7)
[2023-04-25 12:26] LABS: Partial Thromboplastin Time 28.9 SECONDS (22.3-36.8)
[2023-04-25 12:28] LABS: Lactic Acid Reflex 1.5 mmol/L (0.7-2.0)
[2023-04-25 12:35] LABS: NT Pro B Type Natriuretic Pept 153 pg/mL (19.9-100); Troponin I < 0.012 ng/mL (0.000-0.034)
[2023-04-25 12:40] LABS: D Dimer 0.66 ug/mL (<0.48)
[2023-04-25] MEDS: AZITHROMYCIN 500 MG/NS 250 ML 500 MG/250 ML BAG 250 MG IVPB (14:12)
--- NOTE | 2023-04-25 16:02 | PM.IMHP ---
H&P: HPI History of Present Illness Date/Time: 04/25/23 16:15 Chief Complaint: Lightheadedness. Narrative: This is a pleasant 67-year-old male with hypertension, hyperlipidemia, and benign prostatic hyperplasia presented to the emergency department for evaluation of lightheadedness. He has not been feeling well for 7 to 10 days with generalized malaise, sore throat, fatigue, cough, and fever to nearly 102? F. He was seen in urgent care last week and tested negative for strep and COVID however an outpatient COVID test done on 04/17/2023 came back positive. His symptoms have persisted though he has been afebrile for 3 days. His appetite has not been great and he has had nausea the last 5 days or so however he denies vomiting and diarrhea. Last night he started to feel lightheaded when up and walking. At work today he was feeling short of breath with exertion which is unusual for him as he has a very active gentleman. Later in the morning he ran an errand for his job and well driving in the car his vision started to darken and he felt as though he was going to pass out so he pulled over and called 911. He denies syncope, headache, neck ache, chest pain, pleuritic pain, palpitations, lower extremity edema, and calf pain. He was afebrile on arrival to the ED with positive orthostatic vital signs. Labs were significant for a WBC count of 3.1, D-dimer 0.66, sodium 138, BUN 20, creatinine 1.10, lactic acid 1.5, troponin less than 0.012, proBNP 153. Chest CTA showed no evidence of pulmonary embolism, dissection, or aneurysm. Mild ground-glass opacities were noted in the lungs in a predominantly dependent distribution which could represent dependent atelectasis, hypoventilatory change, superimposed atypical infection, or COVID infection. In the ED he was bolused 2 L normal saline and he was started on azithromycin and ceftriaxone for possible concomitant bacterial pneumonia. The patient is eager to get better as he and his plan on going to [place] next week. Review of Systems Review of Systems: Twelve systems were reviewed and are negative except for as per HPI. [facility] Past Medical History Medical History (Updated 04/25/23 @ 16:14 by Hilda Blair PA-C) Allergic rhinitis Anxiety Basal cell carcinoma of back Benign essential hypertension Benign prostatic hyperplasia Chronic back pain Colon polyps Degenerative joint disease Elevated PSA Hearing loss Hyperlipidemia Laryngopharyngeal reflux disease Migraines Mitral valve regurgitation Raynauds syndrome Small fiber neuropathy Supraventricular tachycardia Vitamin D deficiency Surgical History Surgical History (Updated 04/25/23 @ 16:12 by Hilda Blair PA-C) History of basal cell carcinoma excision History of cardiac catheterization (12/16/13) Minimal, nonobstructing disease. History of cardiac radiofrequency ablation For supraventricular tachycardia. History of cholecystectomy History of colonoscopy with polypectomy History of lumbar surgery L3-L4 fusion, diskectomy and laminectomy L2-S1. History of open reduction and internal fixation (ORIF) procedure Repair of right femur fracture in 1974. History of repair of left rotator cuff History of tonsillectomy Family History Family History Father Family history of malignant neoplasm of urinary bladder Mother Acute myocardial infarction Family history of cardiovascular disease Family history of heart disease in male family member before age 55 Other Hypertension Social History Social History (Updated 04/25/23 @ 16:13 by Hilda Blair PA-C) Social History: Surrogate medical decision maker: Yvrose Burgos, spouse. Code status: Full code. Smoking status: Never smoker Second hand tobacco smoke exposure: No Alcohol intake: never Substance use: never Substance use type: marijuana Last use: highschool Lack of Transportation: No Lack of
[2023-04-25] MEDS: LACTATED RINGERS 1,000 ML 75 ML IV CONT (17:50)
[2023-04-25] MEDS: GABAPENTIN 300 MG CAPSULE 600 MG PO (17:51)
[2023-04-25] MEDS: TAMSULOSIN HCL 0.4 MG CAPSULE PO (17:51)
[2023-04-25] MEDS: DICLOFENAC SOD 75 MG TABLET.EC PO (20:14)
[2023-04-26] VITALS (8 sets, daily range): BP systolic 118–156; BP diastolic 70–87; PULSE 50–71; RESP 14–18; TEMP 36.3–36.6; O2SAT 96–100
[2023-04-26 07:01] LABS: Hematocrit 38.5 % (42.0-52.0); Hemoglobin 12.7 g/dL (14.0-18.0); Mean Corpuscular Hemoglobin 30.2 pg (26-34); Mean Corpuscular Volume 91.4 fl (80-100); Mean Platelet Volume 9.3 fl (7.4-10.4); Platelet Count Result 184 k/mm3 (150-375); Red Blood Count 4.21 M/mm3 (4.6-6.20); Red Cell Distribution Width 11.9 % (11.5-14.5); White Blood Count 2.3 K/mm3 (4.5-10.0)
[2023-04-26 07:14] LABS: Anion Gap 1 mmol/L (8-16); Blood Urea Nitrogen 14 mg/dL (9-20); Calcium 7.8 mg/dL (8.4-10.2); Carbon Dioxide 28 mmol/L (22-30); Chloride 110 mmol/L (98-107); Estimated CRCL calculation 82 ml/min; Estimated Glomerular Filt Rate > 60; Glucose 92 mg/dL (65-110); Lactate Dehydrogenase 139 U/L (120-246); Potassium 4.4 mmol/L (3.4-5.0); Sodium 139 mmol/L (137-145)
[2023-04-26 08:03] LABS: Procalcitonin 0.1 ng/mL
[2023-04-26] MEDS: PRAVASTATIN SODIUM 20 MG TABLET 80 MG BY MOUTH (08:09)
[2023-04-26] MEDS: GABAPENTIN 300 MG CAPSULE 600 MG PO ×2 (08:09→13:06)
[2023-04-26] MEDS: EZETIMIBE 10 MG TABLET PO (08:10)
[2023-04-26] MEDS: DICLOFENAC SOD 75 MG TABLET.EC PO (08:10)
[2023-04-26] MEDS: TAMSULOSIN HCL 0.4 MG CAPSULE PO (08:10)
[2023-04-26] MEDS: LACTATED RINGERS 1,000 ML 75 ML IV CONT (13:08)
[2023-04-26] MEDS: AZITHROMYCIN 500 MG/NS 250 ML 500 MG/250 ML BAG 250 MG IVPB (13:35)
--- NOTE | 2023-04-26 14:21 | PM.DS ---
DS: Admitting Diagnosis Discharge Date 04/26/23 Admitting Diagnosis Lightheadedness DS: Discharge Diagnosis Discharge Diagnosis (1) Orthostatic hypotension: Code(s): I95.1 - Orthostatic hypotension Status: Acute (2) COVID-19: Code(s): U07.1 - COVID-19 Status: Acute (3) Abnormal CT scan of lung: Code(s): R91.8 - Other nonspecific abnormal finding of lung field Status: Acute (4) Neutropenia: Code(s): D70.9 - Neutropenia, unspecified Status: Acute (5) Benign essential hypertension: Code(s): I10 - Essential (primary) hypertension Status: Acute (6) Benign prostatic hyperplasia: Code(s): N40.0 - Benign prostatic hyperplasia without lower urinary tract symptoms Status: Acute (7) Hyperlipidemia: Qualifiers: Hyperlipidemia type: mixed hyperlipidemia Qualified Code(s): E78.2 - Mixed hyperlipidemia Code(s): E78.5 - Hyperlipidemia, unspecified Status: Acute DS: Summary Hospital Course Hospital Course: Patient presents for evaluation of lightheadedness. He has had generalized malaise, sore throat, fatigue, cough, and fever to nearly 102? F. He eventually tested positive for COVID on 04/17/23. He denied syncope. He was afebrile on arrival to the ED with positive orthostatic vital signs. WBC count of 3.1, D-dimer 0.66, sodium 138, BUN 20, creatinine 1.10, lactic acid 1.5, troponin less than 0.012, proBNP 153. Chest CTA showed no evidence of pulmonary embolism, dissection, or aneurysm. Mild ground-glass opacities were noted in the lungs in a predominantly dependent distribution which could represent dependent atelectasis, hypoventilatory change, superimposed atypical infection, or COVID infection. In the ED he was given 2 L normal saline and was started on azithromycin and ceftriaxone for possible concomitant bacterial pneumonia. He was admitted to medical floor. Fall precautions initiated. Antihypertensives were held. He was placed on telemetry but no significant dysrhythmias noted. He was placed on isolation. He had no oxygen requirement thus no indication for remdesivir or dexamethasone. Procalcitonin 0.1. Lactic, Ferritin and LDH normal. Troponin negative. EKG showing sinus bradycardia (58) and incomplete Rt BBB but no change from prior. Echo with EF 60-65% and normal diastolic function. Leukopenia is likely related to COVID (but is on terbinafine which can cause neutropenia). ANC was 2015. Repeat WBC 2300. He received IV fluids. He had orthostatic vital signs repeated showing normal blood pressure, no drop in pressure with standing and no lightheadedness. He overall did well and was able to be discharged home on 04/26/23. Status at Discharge Cognitive/behavioral status at discharge: stable Time Spent with Patient Time attestation: Total time spent providing and/or coordinating discharge services: 38 minutes Time spent: Greater than 30 minutes Exam Narrative: AF 97.9 118/70 65 16 99% ra Gen - NARD Chest - CTA bilaterally, nml RR CV - RRR S1/S2 Abd - Soft, NT/ND, Positive BS Ext - No pedal edema Neuro - Alert and oriented. Nonfocal exam. Psych - Nml mood and affect Skin - Warm and dry DS: Data Data Completed and Pending Labs on day of discharge: Labs from last 24 hours 04/26/23 06:48 WBC 2.3 L RBC 4.21 L Hgb 12.7 L Hct 38.5 L MCV 91.4 MCH 30.2 MCHC 33.0 RDW 11.9 Plt Count 184 MPV 9.3 Sodium 139 Potassium 4.4 Chloride 110 H Carbon Dioxide 28 Anion Gap 1 L BUN 14 D Creatinine 0.70 Estim Creat Clear Calc 82 Estimated GFR > 60 Glucose 92 Calcium 7.8 L Magnesium 2.0 Ferritin 214.00 Lactate Dehydrogenase 139 Procalcitonin 0.1 Preliminary micro results at discharge 04/25/23 14:03 Blood Culture - Preliminary Blood 04/25/23 14:03 Blood Culture - Preliminary Blood Discharge Plan Discharge Attending physician on discharge: Rock Kruse
--- NOTE | 2023-04-26 15:53 | PC.NURSE ---
Addendum entered by Karen Pritchett RN 04/26/23 17:12: Pt discharged home with in personal vehicle. Pt transported down in wheel chair to car. Original Note: Pt is A&O4 male who has participated and contributed in plan of care. Pt denies any pain at this time. Pt discharging home. Will continue to monitor pt until discharge.
--- NOTE | 2023-04-26 22:40 | ECHO_ITS ---
Patient Info Name: Barrington Burgos Age: 67 years : 1955 Gender: Male Ht: 67 in Wt: 160 lbs BSA: 1.86 m2 HR: 60 bpm BP: 151 / 86 mmHg Heart Rhythm: Sinus Rhythm Technical Quality: Good Exam Date: 04/26/2023 12:05 PM Exam Location: [facility] Card Pulmonary Patient Status: Inpatient Admit Date: 04/25/2023 Staff Ordering Physician: Hilda Blair PA-C Electric Meter Inspector: Ferny Soto RDCS Attending Provider: Rock Kruse MD Referring Physician: Johnnie VICKERS; Exam Type: CA echo doppler color flow Study Info Indications - near syncope Complete two-dimensional, color flow and Doppler transthoracic echocardiogram is performed. Summary 1. Complete two-dimensional, color flow and Doppler transthoracic echocardiogram is performed. 2. Normal left ventricular size thickness and systolic function. 3. Trivial monteiro valvular regurgitation. Left Ventricle Left ventricular chamber dimension is normal. Left ventricular systolic function is normal, estimated at 60-65%. The left ventricular diastolic function is normal. Right Ventricle Right ventricular chamber dimension is normal. Left Atria Left atrial chamber dimension is normal. Right Atria Right atrial chamber dimension is normal. Aortic Valve The aortic valve is normal. There is trace aortic valve regurgitation. Pulmonic Valve The pulmonic valve is normal. There is trace pulmonic regurgitation. Mitral Valve The mitral valve has normal leaflets. There is trace mitral valve regurgitation. Tricuspid Valve The tricuspid valve leaflets are normal. There is trace tricuspid valve regurgitation. Pericardium/Pleural The pericardium appears normal. Aorta The aortic root size at the sinus of Valsalva is normal. Report Signatures
--- NOTE | 2023-05-02 10:12 | PC.NURSE ---
Blood cx are negative. Dr. Uriah garcia.
== END 2023-04-26 17:00 | disposition home or self-care (01) ==
LOC: ANHED 14:20 → ANH3MEDSUR 15:05
PROVIDERS: Emergency Medicine; Physician Assistant; Admitting Provider Internal Medicine; Emergency Provider Nurse Practitioner Family; PCP Internal Medicine; Visit Provider Internal Medicine
DX: I95.1 Orthostatic hypotension (principal); U07.1 COVID-19; R91.8 Other nonspecific abnormal finding of lung field; D70.9 Neutropenia, unspecified; I10 Essential (primary) hypertension; N40.0 Benign prostatic hyperplasia without lower urinary tract symptoms; E78.2 Mixed hyperlipidemia; R63.0 Anorexia; Z68.24 Body mass index [BMI] 24.0-24.9, adult; I45.10 Unspecified right bundle-branch block; H81.10 Benign paroxysmal vertigo, unspecified ear; R74.8 Abnormal levels of other serum enzymes; R00.1 Bradycardia, unspecified; G89.29 Other chronic pain; M54.9 Dorsalgia, unspecified; R07.0 Pain in throat; E55.9 Vitamin D deficiency, unspecified; Z79.899 Other long term (current) drug therapy; Z82.49 Family history of ischemic heart disease and other diseases of the circulatory system
CPT/HCPCS: 36415; 70450; 71275; 80048; 80053; 82728; 83605; 83615; 83735; 83880; 84145; 84484; 85025; 85027; 85380; 85610; 85730; 87040; 87070; 87205; 93005; 93306; 93880; 96361; 96365; 96375; 96376; 99285; A9270; G0378; J0456; J0696; J7030; J7120; Q9967

== ENCOUNTER 2024-09-08 11:56 | Outpatient (CLI) | payer MEDICARE, SELFPAY ==
--- NOTE | 2024-09-08 14:00 | NEURO_ITS ---
Impression: # Complains of intermittent spasms in all extremities. # Normal motor/sensory Nerve Conduction Study. # Normal needle/EMG exam without evidence of myotonia, fibs or neurogenic changes. # Clinical correlation recommended. Nerve Conduction Studies Anti Sensory Summary Table Stim Site NR Peak (ms) P-T Amp (?V) Site1 Site2 Delta-P (ms) Dist (cm) Alvino (m/s) Left Median Anti Sensory (2-3nd Digit) Wrist 3.0 48.5 Wrist 2-3nd Digit 3.0 14.0 47 Wrist 3.2 28.9 Wrist 2-3nd Digit 3.0 14.0 47 Right Median Anti Sensory (2-3nd Digit) Wrist 3.1 36.0 Wrist 2-3nd Digit 3.1 14.0 45 Wrist 3.0 31.9 Wrist 2-3nd Digit 3.1 14.0 45 Left Radial Anti Sensory (Base 1st Digit) Wrist 2.0 22.3 Wrist Base 1st Digit 2.0 0.0 Right Radial Anti Sensory (Base 1st Digit) Wrist 2.3 11.9 Wrist Base 1st Digit 2.3 0.0 Left Sup Fibular Anti Sensory (Ant Lat Mall) 14 cm 3.0 10.5 14 cm Ant Lat Mall 3.0 16.0 53 Right Sup Fibular Anti Sensory (Ant Lat Mall) 14 cm 3.3 15.6 14 cm Ant Lat Mall 3.3 16.0 48 Left Sural Anti Sensory (Lat Mall) Calf 3.3 18.8 Calf Lat Mall 3.3 16.0 48 Right Sural Anti Sensory (Lat Mall) Calf 3.3 13.4 Calf Lat Mall 3.3 16.0 48 Left Ulnar Anti Sensory (5th Digit) Wrist 2.9 18.6 Wrist 5th Digit 2.9 14.0 48 Right Ulnar Anti Sensory (5th Digit) Wrist 2.8 19.6 Wrist 5th Digit 2.8 14.0 50 Motor Summary Table Stim Site NR Onset (ms) O-P Amp (mV) Site1 Site2 Delta-0 (ms) Dist (cm) Alvino (m/s) Left Median Motor (Abd Poll Brev) Wrist 2.8 9.9 Elbow Wrist 5.2 29.0 56 Elbow 8.0 9.7 Right Median Motor (Abd Poll Brev) Wrist 3.3 7.9 Elbow Wrist 4.8 28.0 58 Elbow 8.1 6.9 Left Peroneal Motor (Vastus Med) Ankle 3.1 1.7 Popit Ankle 8.2 39.0 48 Popit 11.3 1.5 Right Peroneal Motor (Vastus Med) Ankle 3.8 5.8 Popit Ankle 7.5 36.0 48 Popit 11.3 5.0 Left Tibial Motor (Abd Schultz Brev) Ankle 4.0 2.1 Knee Ankle 8.0 39.0 49 Knee 12.0 1.7 Right Tibial Motor (Abd Schultz Brev) Ankle 3.9 7.7 Knee Ankle 7.7 38.0 49 Knee 11.6 5.2 Left Ulnar Motor (Abd Dig Minimi) Wrist 2.7 6.1 A Elbow Wrist 5.3 31.0 58 A Elbow 8.0 5.2 Right Ulnar Motor (Abd Dig Minimi) Wrist 2.3 6.3 A Elbow Wrist 5.0 28.0 56 A Elbow 7.3 6.2 F Wave Studies NR F-Lat (ms) L-R F-Lat (ms) Left Median (Mrkrs) (Abd Poll Brev) 28.44 0.93 Right Median (Mrkrs) (Abd Poll Brev) 29.37 0.93 Left Peroneal (Mrkrs) (EDB) 51.28 0.58 Right Peroneal (Mrkrs) (EDB) 50.70 0.58 Left Tibial (Mrkrs) (Abd Hallucis) 51.56 1.01 Right Tibial (Mrkrs) (Abd Hallucis) 50.55 1.01 Left Ulnar (Mrkrs) (Abd Dig Min) 29.73 0.04 Right Ulnar (Mrkrs) (Abd Dig Min) 29.77 0.04 EMG Side Muscle Nerve Root Ins Act Fibs Amp Dur Recrt Comment Right 1stDorInt Ulnar C8-T1 Nml Nml Nml Nml Nml Right Ext Indicis Radial (Post Int) C7-8 Nml Nml Nml Nml Nml Right Ext Digitorum Radial (Post Int) C7-8 Nml Nml Nml Nml Nml Right BrachioRad Radial C5-6 Nml Nml Nml Nml Nml Right PronatorTeres Median C6-7 Nml Nml Nml Nml Nml Right Abd Poll Brev Median C8-T1 Nml Nml Nml Nml Nml Right ABD Dig Min Ulnar C8-T1 Nml Nml Nml Nml Nml Right AntTibialis Dp Br Fibular L4-5 Nml Nml Nml Nml Nml Right Gastroc Tibial S1-2 Nml Nml Nml Nml Nml Right Fibularis Long Sup Br Fibular L5-S1 Nml Nml Nml Nml Nml Right Flex Dig Long Tibial L5-S2 Nml Nml Nml Nml Nml Right Ext Dig Brev Dp Br Fibular L5, S1 Nml Nml Nml Nml Nml Right QuadratusFem QuadFemoris L4-5, S1 Nml Nml Nml Nml Nml Left AntTibialis Dp Br Fibular L4-5 Nml Nml Nml Nml Nml Left Gastroc Tibial S1-2 Nml Nml Nml Nml Nml Left Fibularis Long Sup Br Fibular L5-S1 Nml Nml Nml Nml Nml Left Flex Dig Long Tibial L5-S2 Nml Nml Nml Nml Nml Left Ext Dig Brev Dp Br Fibular L5, S1 Nml Nml Nml Nml Nml Left QuadratusFem QuadFemoris L4-5, S1 Nml Nml Nml Nml Nml Left 1stDorInt Ulnar C8-T1 Nml Nml Nml Nml Nml Left Ext Indicis Radial (Post Int) C7-8 Nml Nml Nml Nml Nml Left Ext Digitorum Radial (Post Int) C7-8 Nml Nml Nml Nml Nml Left BrachioRad Radial C5-6 Nml Nml Nml Nml Nml Left PronatorTeres Median C6-7 Nml Nml Nml Nml Nml Left Abd Poll Brev Median C8-T1 Nml Nml Nml Nml Nml Left ABD Dig Min Ulnar C8-T1 Nml Nml Nml Nml Nml Right Biceps Musculocut C5-6 Nml Nml Nml Nml Nml Right Triceps Radial C6-7-8 Nml Nml Nml Nml Nml Right Deltoid Axillary C5-6 Nml Nml Nml Nml Nml Left Biceps Musculocut C5-6 Nml Nml Nml Nml Nml Left Triceps Radial C6-7-8 Nml Nml Nml Nml Nml Left Deltoid Axillary C5-6 Nml Nml Nml Nml Nml MTDD
== END 2024-09-08 11:57 | disposition home or self-care (01) ==
LOC: ANHNEURO 11:58
PROVIDERS: PCP Internal Medicine; Visit Provider Internal Medicine
DX: G62.9 Polyneuropathy, unspecified (principal)
CPT/HCPCS: 95886; 95913

== ENCOUNTER 2024-10-13 11:30 | Outpatient (CLI) | payer MEDICARE, SELFPAY ==
[2024-10-13 12:24] LABS: Add Urine Microscopic? NO; Appearance Urine Clear (Clear); Bilirubin Urine Negative (Negative); Blood Urine Negative (Negative); Color Urine Yellow (Yellow); Glucose Urine UA Negative (Negative); Ketones Urine Negative (Negative); Leukocyte Esterase Ur Negative LEU/UL (Negative); Nitrate Urine Negative (Negative); Protein Urine Negative (Negative); Specific Grav Ur 1.022 (1.001-1.035); Urobilinogen Urine 0.2 mg/dL (<2.0); pH Urine 5.5 (5.0-9.0)
== END 2024-10-13 11:31 | disposition home or self-care (01) ==
PROVIDERS: PCP Internal Medicine; Visit Provider Internal Medicine
DX: R39.9 Unspecified symptoms and signs involving the genitourinary system (principal)
CPT/HCPCS: 81003

== ENCOUNTER 2025-01-25 10:26 | Outpatient (CLI) | payer MEDICARE, SELFPAY ==
--- NOTE | ~2025-01-25 | CT_ITS ---
EXAMINATION: CT abdomen pelvis w con DATE: 01/25/2025 10:58 INDICATION: Low abdominal pain, unspecified. TECHNIQUE: Computed tomography (CT) of the abdomen and pelvis was performed with 100 mL Omnipaque 350 intravenous contrast. Automated exposure control and iterative reconstruction technique were employe d. The dose-length product was 349.97 mGy-cm. COMPARISON: CT abdomen and pelvis 06/21/2021 FINDINGS: The visualized portions of the lung bases demonstrate mild atelectasis. No pleural effusion . The heart size is normal. There are coronary artery calcifications. No pericardial effusion. There are cysts in the liver measuring up to 7 mm. There are changes of cholecystectomy. The spleen, pancre as, adrenal glands, and right kidney are normal. There are cysts in left kidney measuring up to 5 mm. There are bilateral inguinal hernias containing fat. There is diverticulosis of the colon without ev idence of diverticulitis. There are no dilated loops of bowel. The appendix is normal. There are no p athologically enlarged lymph nodes. There is an umbilical hernia containing fat. There is no free int raperitoneal fluid. There is an old healed fracture of right femur with internal fixation. There is a total right hip arthroplasty. There are changes of anterior posterior fusion procedures at L3-L4. Th ere is severe lumbar spondylosis and moderate thoracic spondylosis. IMPRESSION: 1. Umbilical hernia and bilateral inguinal hernias containing fat. Reviewed, dictated and finalized at location A.
--- NOTE | ~2025-01-25 | US_ITS ---
EXAMINATION: US scrotum doppler DATE: 01/25/2025 11:29 INDICATION: Lower abdominal pain. TECHNIQUE: Testicular sonogram utilizing grayscale and Doppler COMPARISON: None. FINDINGS: The right testis measures 4.2 x 3.2 x 2.4 cm. The left testis measures 3.8 x 5.3 x 2.5 cm. Symmetric normal grayscale appearance to both testes. There is normal vascular flow to both testes. 8 mm anecho ic right epididymal cyst. The right epididymis is otherwise normal with normal vascular flow. The lef t epididymis is normal with normal vascular flow. There is no varicocele or hydrocele. IMPRESSION: 1. Incidental 8 mm right epididymal cyst. Otherwise normal scrotal ultrasound. Reviewed, dictated and finalized at location B.
[2025-01-25 10:57] LABS: Estimated Glomerular Filt Rate > 60
--- OUTSIDE RECORDS SUMMARY | 2025-01-25 12:20 | XMS_ITS | Continuity of Care Document ---
Author Organization [facility] Address [address] [place] [address] Phone Care Team Providers Care Confectionery Drops Machine Operator Name Role Phone Meghan Wiley MD Unavailable Unavailable Allergies, Adverse Reactions, Alerts Substance Reaction Status Criticality No Known Allergies Active No Inform ation Medications Medication Instructions Dosage Effective Dates (start - stop) Status Comments gabapentin 300 mg capsule take 1 capsule by oral route 3 times every day 300 MG - Active acetaminophen 500 mg tablet take 2 tablet by oral route three times a day as needed for pain - Active PROPRANOLOL HCL (unknown strength) Not Available - Active VALSARTAN (unknown strength) Not Available - Active DICLOFENAC SODIUM ER (unknown strength) Not Available - Active Procedures Procedure Date Fluoro For Spine Injection Procedures De Office/outpatient visit,est, mod 2016 Injection, HANSEL, Lumbar Or Sacral, W/ Lo ging Omnipaque, 300-399 mg/ml, per ml 2016 Depo Medrol Methylprednisolone 40 MG inj Depo Medrol Methylprednisolone 40 MG inj Injection Kit Office/outpatient visit,est, mod 2016 Fluoro For Spine Injection Procedures Ma Injection, HANSEL, Lumbar Or Sacral, W/ Lo ging Omnipaque, 300-399 mg/ml, per ml 2016 Depo Medrol Methylprednisolone 40 MG inj Depo Medrol Methylprednisolone 40 MG inj Injection Kit Office/outpatient visit,high yoav Advance Directives Directive Yes / No Effective Date File Name No Information Encounters Encounter Description Practice Location Reason(s) For Visit Diagnoses Date Provider Providers Copied on Encounter [facility], [address] [place] [address], [id number], [phone] [facility] No Information 8 Paracha Meghan. [address] [address], [place], [address], [place]. tel: [phone] [facility], [address], [id number], [place] [phone] [facility] No Information 8 Paracha Meghan. [address], [address], [place]. tel: [phone] Office/outpa tient visit,est, mod [facility], [address], [id number], [place] [phone] [facility] Lumbar (chief complaint) Low back painRadiculopathy , lumbar regionOther spondylosis with radiculopathy, lumbosacral regionOther chronic pain 7 Paracha Meghan. [address], [address], [place]. tel: [phone] [facility], [address], [id number], [place] [phone] [facility] Radiculopathy, lumbar region 7 Paracha Meghan. [address], [address], [place]. tel: [phone] Office/outpa tient visit,est, mod [facility], [address], [id number], [place] [phone] [facility] Lumbar (chief complaint) Other chronic painLow back painOther spondylosis with radiculopathy, lumbosacral regionSpinal stenosis, lumbar regionRadiculopat hy, lumbar region 201 7 Paracha Meghan. [address], [address], [place]. tel:[phone] [facility], [address], [id number], [place] [phone] [facility] Lumbar (chief complaint) Radiculopathy, lumbar regionLow back painOther chronic painSpinal stenosis, lumbar regionOther spondylosis with radiculopathy, lumbosacral region Jan-0 6-201 7 Paracha Meghan. [address], [address], [place]. tel:[phone] Office/outpa tient visit,new, high [facility], [address], [id number], [place] [phone] [facility] Lumbar (chief complaint) LumbagoRadiculopa thy, lumbar regionSpinal stenosis, lumbar regionOther spondylosis with radiculopathy, lumbosacral regionOther chronic painOther intervertebral disc degeneration of lumbosacral regionOther intervertebral disc displacement, lumbar regionSpondylolis thesis of lumbar region 0 2 7 Paracha Meghan. [address], [address], [place]. tel:[phone] Referring Provider: Luis Fernando Turner MD, [facility], [address] . tel:[phone] Family History Family Member Type Diagnosis Age At Onset Mother Problem (finding) Heart Trouble Father Problem (finding) malignant neoplasm of [facility] bladder Father Problem (finding) hypertension Payers Payer name Insurance type Covered alliance party ID Authoriza tion(s) [facility] [id number] Social History Type Description Quantity Date Captured Comments Sex Male Smoking Status No Information Chief Complaint And Reason For Visit No Information Reason For Referral Reason For Referral No Information History Of Present Illness Encounter Date Complaint History Of Prese nt Illness Lumbar Patient presents for a Caudal Epidural Steroid Injection Lumbar Timbo comes into the office for his lumbar spine pain Lumbar Barrington comes into the office for his lumbar spine pain Lumbar Barrington comes into the office for his lumbar spine, bilateral leg and buttock pain. Functional Status Date Functional Assessmen t No Information Instructions Date Instruction Additional Infor mation No Information Assessments Type Assessment Date No Information Patient Care Teams Name Effective Dates (start - stop) Status Members No Information
--- OUTSIDE RECORDS SUMMARY | 2025-01-25 12:20 | XMS_ITS | Continuity of Care Document ---
Author Organization [facility] Address [address] [place] [address] Phone Care Team Providers Care Pearl Digger Name Role Phone Clint Hilario MD Unavailable Unavailable Procedures Procedure Date INJ SPINE LUM/SAC W/ IMAGING GUIDANCE Nh SURGICAL TRAY LOW OSMOLAR CONTRAST (200 TO 299 MG IODI NE) Injection, Triamcinolone Acetonide, 10mg INJ SPINE LUM/SAC W/ IMAGING GUIDANCE SURGICAL TRAY LOW OSMOLAR CONTRAST (200 TO 299 MG IODI NE) Injection, Triamcinolone Acetonide, 10mg Advance Directives Directive Yes / No Effective Date File Name No Information Encounters Encounter Description Practice Location Reason(s) For Visit Diagnoses Date Provider Providers Copied on Encounter [facility], [address], [place], [place], [id number], [place] tel:[phone] [facility] No Information Yanelis Jaramillo. [address], [place], [place], [id number], [place]. tel:[phone] Referring Provider: Yuriy De La Torre DO, [address], [place], [address]. tel:[phone] [facility], [address], [place], [place], [id number], tel:[phone] [facility] No Information Aflred Ferris. [address], [place], [place], [id number], [place]. tel:[phone] Referring Provider: Yuriy De La Torre DO, [address], [place], [place], . tel:[phone] Family History Family Member Type Diagnosis Age At Onset No Information Payers Payer name Insurance type Covered democrat ID Authoriza tion(s) BS ACCESS [id number] MEDICARE MB [id number] [employer] MDCR SUPPLEMENT CI [id number] Social History Type Description Quantity Date Captured Comments Sex Male Smoking Status No Information Chief Complaint And Reason For Visit No Information Reason For Referral Reason For Referral No Information History Of Present Illness Encounter Date Complaint History Of Prese nt Illness No Information Functional Status Date Functional Assessmen t No Information Instructions Date Instruction Additional Infor mation No Information Assessments Type Assessment Date No Information Patient Care Teams Name Effective Dates (start - stop) Status Members No Information
--- OUTSIDE RECORDS SUMMARY | 2025-01-25 12:20 | XMS_ITS | Clinical Summary ---
Author Organization [facility] Address [address] [address] Care Team Providers Care Blurb Writer Name Role Phone Joni Watt MD Primary Care Provider [phone] Source Comments [facility],non-owned Affiliates and Associated Physician Practices is amultiple site organization consisting of ambulatory clinics and hospital sitesin [place], [place], [place] and [place]. This disclosure is being madepursuant to the Care Everywhere program and may not contain all information available regarding this patient. Last updated 18.[facility] Allergies No known active allergies Medications * Be aware that medications may not be up to date on this document. Alwaysverify current medications with the patient. Medication Sig Dispensed Refills Start Date End Date Status colesevelam (WELCHOL) 625 MG tablet TAKE 6 TABLETS BY MOUTH EVERY DAY 11/07/2020 Active pravastatin (PRAVACHOL) 40 MG tablet TK 1 T PO D 07/11/2020 Active irbesartan (AVAPRO) 150 MG tablet 1 (one) tablet once daily 06/18/2021 Active diclofenac sodium XR 24hr (VOLTAREN XR) 100 MG tablet TK 1 T PO BID 07/17/2020 Acti ve tamsulosin (FLOMAX) 0.4 MG capsule Take 1 (one) capsule by mouth once daily 06/12/2021 Active omeprazole (PRILOSEC) 20 MG capsule Take 20 mg by mouth daily before breakfast Active escitalopram (LEXAPRO) 10 MG tablet 10 mg once daily 06/27/2021 Active ezetimibe (Zetia) 10 MG tablet Take 1 (one) tablet by mouth once daily 05/25/2022 Active terbinafine (LamISIL) 250 MG tablet Take 1 (one) tablet by mouth once daily Active gabapentin (Neurontin) 600 MG tablet Take 1 (one) tablet by mouth 3 times daily 270 tablet 3 08/30/2024 Active Social History Tobacco Use Types Packs/Day Years Used Date Smoking Tobacco: Never Smokeless Tobacco: Never Tobacco Cessation:Counseling Given: No Alcohol Use Standard Drinks/Week Comments Not Currently 0 (1 standard drink = 0.6 oz pur e alcohol) Sex and Gender Information Value Date Recorded Sex Assigned at Not on file Gender Identity Not on file Sexual Orientation Not on file Last Filed Vital Signs Vital Sign Reading Time Taken Comments Blood Pressure 156/96 08/30/2024 12:59 PM CDT Pulse 79 08/30/2024 12:59 PM CDT Temperature 36.8 C (98.2 F) 06/17/2021 8:55 AM CDT Respiratory Rate 17 06/17/2021 11:30 AM CDT Oxygen Saturation 97% 06/07/2022 10:00 AM CDT Inhaled Oxygen Concentration - - Weight 74.8 kg (165 lb) 08/30/2024 12:59 PM CDT Height 170.2 cm (5' 7 ) 08/30/2024 12:59 PM CDT Body Mass Index 25.84 08/30/2024 12:59 PM CDT Plan of Treatment Upcoming Encounters Date Type Department Care Team (Late st Contact Info) Description 03/30/2025 10:00 AM CDT Office Visit [facility] [address] [place] [address] Ferny Rubi MD [address] [facility] [address] [place] [id number] Health Maintenance Due Date Last Done Comments COLOGUARD (AGES 45-75) - COL ON CA SCREENING 1955 COLON MONITORING 1955 COLONOSCOPY - COLON CA SCREENING 1955 CT COLONOGRAPHY - COLON CA SCREENING 1955 Colorectal Cancer Screening 1955 FIT - COLON CA SCREENING 1955 FLEX SIG - COLON CA SCREENING 1955 MEDICARE AWV 12 MONTHS 1955 HEPATITIS C SCREENING 09/09/1973 DTAP/TDAP/TD VACCINES (1 - Tdap) 1974 PNEUMOCOCCAL VACCINE 50+ (1 of 1 - PCV) 2005 ZOSTER VACCINE (1 of 2) 2005 SCREENING FOR DIABETES 06/16/2024 06/16/2021 COVID-19 VACCINE (3 - 2023-2 5 season) 2024 02/07/2021, 01/24/2021 INFLUENZA VACCINE (#1) 2024 DEPRESSION SCREENING 11/03/2024 Respiratory Syncytial Virus (RSV) Vaccine Pt: or over 60 yrs (1 - 1-dose 75+ series) 2030 HEPATITIS B VACCINE Aged Out No longe r eligible based on patient's age to complete this topic HIB VACCINE Aged Out No longer eligi ble based on patient's age to complete this topic HPV VACCINE Aged Out No longer eligi ble based on patient's age to complete this topic MENINGOCOCCAL (Group B) VACCINE SHARED DECISION-MAKING Aged Out No longer eligible based on patient's age to complete this topic MENINGOCOCCAL GROUPS A/C/Y/W VACCINE Aged Out No longer eligible b ased on patient's age to complete this topic Procedures Procedure Name Priority Date/Time Associated Diagnosis Comments COMPREHENSIVE METABOLIC PANEL STAT 06/16/2021 4:12 PM CDT from Last 3 Months or Most Recently Relevant to Health Maintenance Results * (ABNORMAL) COMPREHENSIVE METABOLIC PANEL (06/16/2021 4:12 PM CDT) Glucose 104 70 - 105 mg/dL 06/16/2021 4:36 PM CDT [facility] Sodium 139 136 - 145 mmol/L 06/16/2021 4:36 PM CDT [facility] Potassium 5.1 3.5 - 5.1 mmol/L 06/16/2021 4:36 PM CDT [facility] Chloride 106 98 - 107 mmol/L 06/16/2021 4:36 PM CDT [facility] CO2 22(L) 23 - 31 mmol/L 06/16/2021 4:36 PM CDT [facility] Calcium 9.5 8.4 - 10.4 mg/dL 06/16/2021 4:36 PM CDT [facility] Anion Gap 11 8 - 18 mmol/L 06/16/2021 4:36 PM CDT [facility] BUN 17 8.4 - 25.7 mg/dL 06/16/2021 4:36 PM CDT [facility] Creatinine 1.06 0.72 - 1.25 mg/dL 06/16/2021 4:36 PM CDT [facility] Alkaline Phosphatase 66 40 - 150 U/L 06/16/2021 4:36 PM CDT [facility] ALT 14 0 - 61 U/L 06/16/2021 4:36 PM CDT [facility] AST 17 5 - 34 U/L 06/16/2021 4:36 PM CDT [facility] Protein Total 7.0 6.4 - 8.3 gm/dL 06/16/2021 4:36 PM CDT [facility] Albumin 4.1 3.2 - 4.6 gm/dL 06/16/2021 4:36 PM CDT [facility] Bilirubin Total 0.8 0.2 - 1.2 mg/dL 06/16/2021 4:36 PM CDT [facility] eGFR by MDRD >60 >60 mL/min/1.7 3m2 06/16/2021 4:36 PM CDT [facility] eGFR by MDRD >60 >60 mL/min/1.7 3m2 06/16/2021 4:36 PM CDT [facility] Blood BLOOD SPECIMEN / Unknown Venipuncture / Unknown 06/16/2021 4:12 PM CDT 06/16/2021 4:18 PM CDT Mary Jane BATTERY CHECKER-EXTRUDING DEPARTMENT SUPERVISOR LAB - CHEMISTRY ORDERABLES [facility] [address] [place] [address] from Last 3 Months or Most Recently Relevant to Health Maintenance Care Teams Blurb Writer Relationship Specialty Start Date End Date Joni Watt MD [address] [place] [address] PCP - General Internal Medicine 06/16/21
--- OUTSIDE RECORDS SUMMARY | 2025-01-25 12:20 | XMS_ITS | Clinical Summary ---
Author Organization [facility] Address [address] [place] [address] Care Team Providers Care Trouble Locater Name Role Phone Joni Watt MD Primary Care Provider [phone] Allergies No known active allergies Medications gabapentin (NEURONTIN) 600 mg tabletIndication s:Neuropathic Pain Take 1 tablet (600 mg total) by mouth 2 (two) times a day 1 Active pravastatin (PRAVACHOL) 80 mg tabletIndication s:hyperlipidemia Take 1 tablet (80 mg total) by mouth every morning 1 Active irbesartan (AVAPRO) 150 mg tabletIndication s:hypertension Take 1 tablet (150 mg total) by mouth every morning 1 Active ezetimibe (ZETIA) 10 mg tablet Take 1 tablet (10 mg total) by mouth every morning 2 Active terbinafine (LamiSIL) 250 mg tabletIndication s:Onychomycosis Take 1 tablet (250 mg total) by mouth every morning 4 Active cannabidiol, CBD, (EPIDIOLEX) 100 mg/mL solutionIndicati ons:Small Fiber Neuropathy Take 0.01 mL (1 mg total) by mouth every morning Active ergocalciferol (VITAMIN D) 50,000 unit capsule TAKE 1 CAPSULE ONCE A WEEK FOR 12 WEEKS, THEN FOLLOW UP WITH YOUR PCP. 12 capsule 4 Active oxyCODONE (ROXICODONE) 5 mg immediate release tabletIndication s:Pain Take 1 tablet (5 mg total) by mouth every 4 (four) hours as needed for pain (Breakthrough Pain) 30 tablet 4 Active traMADoL (ULTRAM) 50 mg tablet Take 1 tablet (50 mg total) by mouth every 8 (eight) hours as needed for pain 42 tablet 4 Active tamsulosin (FLOMAX) 0.4 mg extended release capsuleIndicatio ns:benign prostatic hyperplasia with lower urinary tract sx Take 1 capsule (0.4 mg total) by mouth every morning 4 Active acetaminophen 500 mg capsuleIndicatio ns:Pain Take 2 capsules (1,000 mg total) by mouth every 8 (eight) hours 90 tablet 4 Active aspirin 81 mg enteric coated tabletIndication s:Deep Vein Thrombosis Prevention Take 1 tablet (81 mg total) by mouth 2 (two) times a day 60 tablet 4 Active senna-docusate (PERICOLACE) 8.6-50 mgIndications:co nstipation Take 2 tablets by mouth 2 (two) times a day 80 tablet 4 Active meloxicam (MOBIC) 7.5 mg tabletIndication s:Pain Take 1 tablet (7.5 mg total) by mouth daily 30 tablet [address] (PROTONIX) 20 mg EC tabletIndication s:Mucositis Prophylaxis Take 1 tablet (20 mg total) by mouth daily FOR GI PROTECTION WHILE TAKING MELOXICAM 30 tablet 4 Active Active Problems Problem Noted Date Diagnosed Date S/P total right hip arthroplasty 10/19/2024 Primary osteoarthritis of right hip 05/19/2024 Benign localized prostatic h yperplasia with lower urinary tract symptoms (LUTS) 09/20/2022 Assessment & Plan (04/10/2023 3:25 PM CDT): -Continues to do well on flomax 0.8mg. -No s/e noted. PLAN: -Continue this regimen. Assessment & Plan (09/20/2022 1:31 PM INSTRUMENTAL MUSICIAN): -Recent issue with worsening LUTS. He was started on abx for possible UTI and tamsulosin increased to 0.8mg which he feels helped decrease symptoms. He denies dysuria but still having somewhat difficulty urinating. -PVR today was low at 17 mL. -Urine dip normal. -We discussed possible addition of finasteride for continued issues. Patient would like to remain on current dosage of tamusulosin for now. PLAN: -Continue tamsulosin 0.8mg. Elevated PSA 09/20/2022 Assessment & Plan (04/10/2023 3:28 PM CDT): -PSA done 09/16/2022 was 12.9. At the time, he was having sx of prostatitis. -Repeated Nov 2022 with his PCP. He reports this greatly improved and he believes it was less than 1. -PSA results have not been received from PCP. PLAN: -Patient will call his PCP's office and have most recent PSA sent to us. Assessment & Plan (09/20/2022 1:36 PM INSTRUMENTAL MUSICIAN): -Per patient, previous PSA done Aug 2021 was around 1.0. We do not have access to records on file. Will request previous PSA from PCP's office. -Patient brought lab results showing PSA of 12.9 that was done 09/16. Patient reports he was having UTI-like symptoms during this time. He states his PCP ordered repeat PSA in about 8 weeks from last to recheck. He does have hx of chronic prostatitis so possible he had exacerbation causing symptoms and elevated PSA. PLAN: -Agree with repeat test. Will f/u on results. We discussed if remains elevated will discuss with patient and plan for either MRI of prostate vs prostate biopsy. He VU. 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 -No recent symptoms. Assessment & Plan (09/21/2021 3:59 PM INSTRUMENTAL MUSICIAN): -On tamsulosin with improvement in urinary symptoms. Patient reports doing well overall. PLAN: -Continue tamsulosin. Assessment & Plan (03/16/2021 2:37 PM CDT): -He was previously taking tamsulosin which he states helped with his urinary symptoms and mildly with prostatitis. He is out of this medication. -He had been referred to pelvic floor therapy for prostatitis at a previous appointment but did not end up attending. Patient is still interested in attending pelvic floor therapy. PLAN: -Restart tamsulosin and stay on this medication. Common side effects discussed. -Referral to pelvic floor therapy placed. Referral along with list of local places to have therapy done was given to patient. Muscle tension headache 12/05/2020 Assessment & Plan (12/05/2020 2:14 PM INSTRUMENTAL MUSICIAN): Patient describes more recent history of a different headache describes a bifrontal bitemporal pressure sensation without light or noise sensitivity nausea or vomiting. It generally is described as a pressure sensation predominantly. It is responsive to acetaminophen or anti-inflammatories and has historical characteristics suggesting muscle contraction type headaches. There is no jaw claudication malaise arthralgias or myalgias to clinically suggest arteritis. He can continue using supplemental acetaminophen or oeaq-lqy-ltqmorw anti-inflammatories on an as-needed basis at this time. Migraine without aura, not i ntractable, without status migrainosus 12/05/2020 Assessment & Plan (12/05/2020 2:14 PM INSTRUMENTAL MUSICIAN): Patient's former patient of [facility] being treated with propranolol for prophylaxis of migraine without aura. He cites good efficacy and tolerability with his regiment. Prior medical records from [facility] have been requested although are yet to be obtained. Another request will be placed today. I have renewed his propranolol as previously scheduled at 40 mg daily. I will plan on seeing him back in 1 year. Oropharyngeal dysphagia 12/05/2020 Assessment & Plan (12/05/2020 2:12 PM INSTRUMENTAL MUSICIAN): Patient's history of oropharyngeal dysphagia diagnosed following a modified barium swallow. He has no other bulbar dysfunction or evidence historically or by examination of a neuromuscular junctional disorder such as myasthenia gravis or motor neuron disease. Raynaud's disease without gangrene 01/01/2020 Rectal pain 04/23/2017 Low back pain 04/17/2017 Resolved Problems Problem Noted Date Diagnosed Date Resolved Date Lower urinary tract symptoms (LUTS) 09/21/2021 09/21/2021 Blood in semen 03/16/2021 09/21/2021 Assessment & Plan (09/21/2021 3:57 PM INSTRUMENTAL MUSICIAN): -Resolved several days after first appearance. Assessment & Plan (03/16/2021 2:28 PM CDT): -Occurred about 2 days ago. Small streaks of dark red blood in semen. -Denies blood in urine. -Denies recent injury or straining. -Discussed benign nature of blood in semen and that it will likely continue until for some time depending on how often he ejaculates. PLAN: -No interventions needed at this time. Perineal pain 04/23/2017 09/21/2021 Assessment & Plan (09/21/2021 3:58 PM INSTRUMENTAL MUSICIAN): -Completely resolved after seeing hoop rolls operator and having banding of internal hemorrhoids. Encounters Date Type Department Care Team Description 12/01/2024 10:50 AM INSTRUMENTAL MUSICIAN Office Visit [facility] Orthopa[facility] Surgery [address] [place] [address] Medical Office Building [address] [place] [id number] Cristian Triana MD S/P total right hip arthroplasty (Primary Dx); Surgical follow-up care 12/01/2024 10:11 AM INSTRUMENTAL MUSICIAN - 12/01/2024 11:59 PM INSTRUMENTAL MUSICIAN Hospital Encounter [id number] [address] [place] [address] [address] [place] [address] S/P total right hip arthroplasty Discharge Disposition: Discharge to home or self care from Last 3 Months Immunizations Immunization Administration Dates Next Due Pfizer SARS-CoV-2 Monovalent Vaccination (12+ Yrs) PURPLE 02/07/2021,01/24/2021 Surgical History Surgery Date Site/Laterality Comments CO CHOLECYSTECTOMY Cholecystectomy - (Added by TW Conv) ROTATOR CUFF REPAIR Left FEMUR FRACTURE SURGERY Right CARDIAC ELECTROPHYSIOLOGY MA PPING AND ABLATION BACK SURGERY COLONOSCOPY Medical History Medical History Date Comments Hypertension Hypertension Hx Other Medical Arrhythmias (PS VT; AVNRT) Personal history of other di seases of the circulatory system History of hypertension - (A dded by TW Conv) Headache Hypercholesteremia Cancer (HCC) Blood in semen 03/16/2021 Perineal pain 04/23/2017 Family History Medical History Relation Name Comments Hypertension Brother Other Daughter 2 Marni drowned; Cause of : drowned Other Daughter 3 Noreen healthy; Other Daughter 4 juvenile RA; Rheum arthritis Daughter 5 Family histo ry of rheumatoid arthritis - (Added by TW Conv) Bladder Cancer Father Cancer Father Family history of malignant neoplasm - (Added by TW Conv) Hypertension Father Family history of hypertension - (Added by TW Conv) Other Father bladder cancer with mets; Cause of : bladder cancer with mets Heart disease Mother Family history of cardiac disorder - (Added by TW Conv) Heart failure Mother heart failure; Cause of : heart failure Hypertension Other Family history of hypertension - (Added by TW Conv) Relation Name Status Comments Brother (Age 74) Daughter 1 Alive Daughter 2 Marni (Age 2) Daughter 3 Noreen Alive Daughter 4 Daughter 5 Father (Age 83) Mother (Age 78) Other Social History Tobacco Use Types Packs/Day Years Used Date Smoking Tobacco: Never Smokeless Tobacco: Never Alcohol Use Standard Drinks/Week Comments Not Currently 0 (1 standard drink = 0.6 oz pur e alcohol) AUDIT-C Answer Date Recorded Q1: How often do you have a drink containing alc ohol? Monthly or less 10/19/2024 Q2: How many drinks containi ng alcohol do you have on a typical day when you are drinking? 1 or 2 10/19/2024 Q3: How often do you have si x or more drinks on one occasion? Never 10/19/2024 Personal Safety Answer Date Recorded Have you ever been in or are you currently in a harmful physical or emotional relationship or is someone making you feel afraid or unsafe? Denies 10/19/2024 Sex and Gender Information Value Date Recorded Sex Assigned at Not on file Legal Sex Male 1:43 AM INSTRUMENTAL MUSICIAN Gender Identity Not on file Sexual Orientation Not on file Obstetrics History Last Filed Vital Signs Vital Sign Reading Time Taken Comments Blood Pressure 112/66 10/20/2024 8:00 AM INSTRUMENTAL MUSICIAN Pulse 66 10/20/2024 8:00 AM INSTRUMENTAL MUSICIAN Temperature 36.3 C (97.3 F) 10/20/2024 8:00 AM INSTRUMENTAL MUSICIAN Respiratory Rate 18 10/20/2024 8:00 AM INSTRUMENTAL MUSICIAN Oxygen Saturation 97% 10/20/2024 8:00 AM INSTRUMENTAL MUSICIAN Inhaled Oxygen Concentration - - Weight 71.3 kg (157 lb 3.2 oz) 10/19/2024 12:25 PM INSTRUMENTAL MUSICIAN Height 170.2 cm (5' 7 ) 10/19/2024 12:25 PM INSTRUMENTAL MUSICIAN Body Mass Index 24.62 10/19/2024 12:25 PM INSTRUMENTAL MUSICIAN Plan of Treatment Health Maintenance Due Date Last Done Comments Colon Cancer Screening-Colonoscopy 1955 Depression Screening 1955 Hepatitis C Screening 1955 DTaP/Tdap/Td Vaccine (1 - Tdap) 1966 Hepatitis B Screening 1973 Pneumococcal vaccine 65+ (1 of 1 - PCV) 2005 Zoster Vaccine (1 of 2) 2005 Well Visit 65+ 2020 Prostate Cancer Screening-PSA 08/27/2023 08/27/2021 Covid-19 Vaccine ( season) 07/04/202405/2021, 01/24/2021 Influenza Vaccine (#1) 2024 Fall Risk Assessment 10/20/2025 10/20/2024 Medical Devices Implanted Type Area Pharmacy Order Entry Technician Device Identifier Shelf Expiration Date Model / Serial / Lot Plate Plate Right: Hip [employer] [place] 6.5mm 15mm Acetabular Cancellous Screw Bone Sterile 1217-15-500 - [id number] Implanted:Qty: 1 on 10/19/2024 at [facility] Right: Hip [employer] 08/02/2034 1217-15-500 / / [id number] [employer] Shell Acetabular Emsys Shl 3hole 58 [id number] - [id number] Implanted:Qty: 1 on 10/19/2024 at [facility] Right: Hip [employer] 12/31/2033 [id number] / / [id number] [employer] Liner Acetabular [id number] Emphasys Polyethylene Hip Joint Mb [id number] - [id number] Implanted:Qty: 1 on 10/19/2024 at [facility] Right: Hip [employer] 12/31/2028 [id number] / / [id number] [employer] [place] 6.5mm 20mm Acetabular Cancellous Screw Bone Sterile 12105-22 - [id number] Implanted:Qty: 1 on 10/19/2024 at [facility] Right: Hip [employer] 07/03/2034 [id number] / / [id number] [employer] Articul/Hank 28mm Cementless Hip +1.5mm 10/16 Taper Head Femoral Latex Free [id number] - [id number] Implanted:Qty: 1 on 10/19/2024 at [facility] Right: Hip [employer] 06/02/2027 [id number] / / [id number] [employer] [place] 6.5mm 30mm Acetabular Cancellous Screw Bone Revision - [id number] Implanted:Qty: 1 on 10/19/2024 at [facility] Right: Hip [employer] 07/03/2034500 / / [id number] [employer] Actis Collar Hip 7 High Offset Stem Femoral [id number] - [id number] Implanted:Qty: 1 on 10/19/2024 at [facility] Right: Hip [employer] 08/02/2034 [id number] / / [id number] [employer] Liner Acetabular 56-58mm Emphasys Metallic Strl Dual Mbl [id number] - [id number] Implanted:Qty: 1 on 10/19/2024 at [facility] Right: Hip [employer] 07/03/2034 [id number] / / [id number] Procedures Procedure Name Priority Date/Time Associated Diagnosis Comments XR HIP RIGHT W PELVIS 2 OR 3 VIEWS Schedule Routine, Read Routine (OP Routine) 12/01/2024 10:23 AM INSTRUMENTAL MUSICIAN S/P total right hip arthroplasty HM PSA SCREENING Routine 08/27/2021 from Last 3 Months or Most Recently Relevant to Health Maintenance Results * XR Hip Right 2 or 3 Views W Pelvis (12/01/2024 10:23 AM INSTRUMENTAL MUSICIAN) Anatomical Region Laterality Modality Lower Extremities, Hip, Pelvis Right C omputed Radiography 12/01/2024 10:3 1 AM INSTRUMENTAL MUSICIAN Impressions 12/01/2024 10:31 AM INSTRUMENTAL MUSICIAN Right total hip arthroplasty in near-anatomic position. Electronically signed by: Georges Dietz M.D. Narrative 12/01/2024 10:31 AM INSTRUMENTAL MUSICIAN EXAMINATION: XR HIP RIGHT 2 OR 3 VIEWS W PELVIS HISTORY: Hip osteoarthritis FINDINGS: 2 views of the right hip and an AP view of the pelvis were performed with comparison made to 10/19/2024. There is a right total hip arthroplasty in near-anatomic position. There is a healed internally fixed femoral shaft fracture with prior plate and screws. There is mild left hip osteoarthritis. Procedure Note Georges Dietz MD PhD - 12/01/2024 EXAMINATION: XR HIP RIGHT 2 OR 3 VIEWS W PELVIS HISTORY: Hip osteoarthritis FINDINGS: 2 views of the right hip and an AP view of the pelvis were performed with comparison made to 10/19/2024. There is a right total hip arthroplasty in near-anatomic position. There is a healed internally fixed femoral shaft fracture with prior plate and screws. There is mild left hip osteoarthritis. IMPRESSION: Right total hip arthroplasty in near-anatomic position. Electronically signed by: Georges Dietz M.D. Cristian Triana MD [facility] XR PROCEDURES Final R esult * HM PSA SCREENING (08/27/2021) PSA Screen 0.9 EXTERNAL LAB 08/27/2021 Historical Provider HEALTH MAINTENANCE Final Result EXTERNAL LAB from Last 3 Months or Most Recently Relevant to Health Maintenance Insurance [employer] [place] [address] [employer] [place] [address] MEDICARE Advance Directives For more information, please contact: [phone] * Full Code (Latest Code Status on File) Date Activated Date Inactivated Comments 10/19/2024 6:26 PM 10/20/2024 4:25 PM Care Teams Trouble Locater Relationship Specialty Start Date End Date Joni Watt MD [address] [facility] [address] [facility] [address] [place] [address] PCP - General 04/24/12
--- OUTSIDE RECORDS SUMMARY | 2025-01-25 12:20 | XMS_ITS | Encounter Summary ---
Author Organization [employer] Address 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
--- OUTSIDE RECORDS SUMMARY | 2025-01-25 12:20 | XMS_ITS | Data Portability ---
Author Organization [employer], [facility] OFF[facility] Address [address] [address] Care Team Providers Care Pattern Marker Name Role Phone KERON SWEET Primary Care Provider Assessment No assessment recorded. Plan of Treatment Reminders Order Date Submit Date Provider Last Modified By Organization Details Last Modified Time Details Appointments None recorded. Lab PSA, serum or plasma 2018 019 [email or web address] Not available 9 15:39:48 CBC w/ auto diff 2018 019 [email or web address] Not available 9 15:39:48 vitamin D, 25-hydroxy, total, serum 2018 019 [email or web address] Not available 9 15:39:48 testosteron e, free, serum 2018 019 [email or web address] Not available 9 15:39:48 testosteron e, total, serum 2018 019 [email or web address] Not available 9 15:39:48 Referral None recorded. Procedures None recorded. Surgeries None recorded. Imaging XR, lumbar spine - room 7 2018 019 [email or web address] Not available 9 15:39:48 MRI, lumbar spine, w/o contrast - History of DDD, has failed PT, oral and injectable pain control/aman roid. Please compare to MRI from 08/17/18.Se nd to [facility] [place]. Will prescribe pt valium prior to scan. 2018 019 AMBER [facility] [address] [place], [address], 0 15:37:58 Medication Orders None recorded. Patient TargetsNo targets recorded. Patient InstructionsNo instructions recorded. Reason for Referral None Reported. Results Created Date Observation Date Name Description Value Unit Range Abnormal Flag Note LastModifiedBy Organization Detail LastModifiedTime 10/20/2011/25/2016 MRI, lumba r spine , w/o contr ast No observ ation record ed. [facility] Not Available 2018 18:43:00 10/20/20 19 08/17/2018 MRI, lumba r spine , w/o contr ast No observ ation record ed. BARCODE Not Available 2018 18:43:00 11/15/19 MRI, lumba r spine , w/o contr ast No observ ation record ed. [email or web address] [facility] [address] [place], [address], 11/15/2019 16:16:49 11/15/19 20 11/15/2019 MRI, lumba r spine , w/o contr ast No observ ation record ed. [email or web address] [facility] [address] [place], [address], 11/17/2019 13:26:49 11/20/19 20 11/15/2019 unk No observ ation record ed. [email or web address] [facility] [place] [address] [facility], [place], [address], 11/24/2019 16:26:54 Result Notes None recorded. Problems No Known Problems Procedures Surgical History Date Name Laterality Status Provider Name and Address Organization Details Recorded Time 11/17/19 Generic Procedure completed SUSANA MCKENNA [address], [place], [address], [facility] [employer] [facility], [facility] 11/17/2019 10:07:04 10/20/20 Generic Procedure completed SUSANA MCKENNA [address] [facility] [address], [facility] [place], [address], [place] [facility] [employer] 11/17/2019 09:28:44 Shoulder Surgery completed Margaret ENRIQUE [facility] 10/20/2019 13:20:42 Cardiac Catheterization completed Margaret ENRIQUE [facility], [facility] 10/20/2019 13:20:42 Colonoscopy completed Margaret ENRIQUE [facility] [facility], [facility] 10/20/2019 13:20:42 Imaging Results Imaging Date Name Status LastModified by Organiz ation Details LastModified Time 11/25/2016 MRI, lumbar spine, w/o contrast completed [facility] Information not available 10/20/2019 18:43:00 08/17/2018 MRI, lumbar spine, w/o contrast completed [facility] Information not available 10/20/2019 18:43:00 11/15/2019 MRI, lumbar spine, w/o contrast completed [email or web address] [facility] [address] [place] [address], [address], 11/15/2019 16:16:49 11/15/2019 MRI, lumbar spine, w/o contrast completed [email or web address] [facility] [address] [place] [address], [address], 11/17/2019 13:26:49 11/15/2019 unk completed [facility] [place] [address] [place], [address], 11/24/2019 16:26:54 Procedure Notes None recorded. Medical Equipment None Reported. Allergies No known drug allergies Medications Name Sig Start Date Stop Date Status Note LastModified by Organization Details LastModified Time cilostazol 100 mg tablet active Not Available Not Available Not Available gabapentin 600 mg tablet 11/17 completed Not Available Not Available Not Available azithromyci n 250 mg tablet 11/17 completed Not Available Not Available Not Available pravastatin 40 mg tablet active Not Available Not Available Not Available diclofenac ER 100 mg tablet,exte nded release 24 hr active Not Available Not Available Not Available propranolol 40 mg tablet active Not Available Not Available Not Available amitriptyli ne 10 mg tablet active Not Available Not Available Not Available gabapentin 300 mg capsule active Not Available Not Available Not Available lorazepam 1 mg tablet 11/17 completed Not Available Not Available Not Available diazepam 10 mg tablet Take 1 tablet(s) 30 mins PRIOR to appointme nt PRN and repeat as directed by physician . 2019 active Not Available Not Available Not Avai lable methylpredn isolone 4 mg tablets in a dose pack active Not Available Not Available Not Available olmesartan 20 mg tablet active Not Available Not Available Not Available olmesartan 40 mg tablet 11/17 completed Not Available Not Available Not Available cholestyram ine (with sugar) 4 gram powder for susp in a packet 11/17 completed Not Available Not Available Not Available Xifaxan 200 mg tablet 11/17 completed Not Available Not Available Not Available Vitals Date Recorded Body height Body mass index (BMI) Body weight Heart rate Systolic blood pressure Diastolic blood pressure Provider Name and Address Organization Details Last Updated DateTime 9 170.18 cm 25.8 kg/m2 03876.7 4 g 62 /min 143 mm[Hg] 79 mm[Hg] Margaret Steve [email or web address] 9 13:20:08 Date Recorded Body height Body mass index (BMI) Body weight Heart rate Systolic blood pressure Diastolic blood pressure Provider Name and Address Organization Details Last Updated DateTime 0 170.18 cm 25.8 kg/m2 78082.7 4 g 73 /min 131 mm[Hg] 90 mm[Hg] Comfort Maya [email or web address] 0 09:28:19 Social History Question Answer Notes LastModified by Organizat ion Details LastModified Time Tobacco Smoking Status Never Smoker Margaret Diazmagdaleno [employer] 10/20/2019 13:20:36 What Is Your Level Of Alcohol Consumption? Occasional Information not available 10/20/2019 Auto Related Injury? No Information not available 10/20/2019 What Is Your Level Of Caffeine Consumption? Moderate Information not available 10/20/2019 How Much Tobacco Do You Chew? None Information not available 10/20/2019 Diabetes No Information no t available 10/20/2019 What Type Of Diet Are You Following? REGULAR Information not available 10/20/2019 High Blood Pressure Yes Information not available 10/20/2019 High Cholesterol Yes Informat ion not available 10/20/2019 Marital Status Informatio n not available 10/20/2019 General Stress Level Medium Information not available 10/20/2019 Work Related Injury? No Information not available 10/20/2019 Sex: Unknown Functional Status Question Answer Note LastModified by Organization D etails LastModified Time What is your exercise level? Moderate Information not available 10/20/2019 Mental Status None recorded. Family History Relationship Description Onset Age of this Age Resolved Age Notes LastModified by Organization Details LastModified Time Father Hypertensive disorder [email or web address] Not available 2018 13:20:23 Mother Heart disease [email or web address] Not available 2018 13:20:23 Mother Arthritis [email or web address] Not available 11/17/2019 09:30:30 Unspecified Relation Rheumatoid arthritis [email or web address] Not available 2018 13:20:23 Medical History Condition Response Other Cancer N HIV or AIDS N Coronary Artery Disease N Gout N Kidney Stones N Hyperthyroidism N Breast Cancer N Hernia N Head Trauma/Injury N Lung Cancer N Hypothyroidism N Lung Disease N Blood Clots N COPD N Depression N Pacemaker N Anxiety Disorder N Arthritis Y Kidney Cancer N Cancer N Stroke N Leg or Foot Ulcers N Neck Injury N High Cholesterol Y Liver Disease N Rheumatoid Arthritis N Fibromyalgia N Headaches N Kidney Disease N Heart Problems N Prostate Cancer N Migraines Y Thyroid Problems N Anemia N Multiple Sclerosis N Ulcers N Heart Attack ([place]) N Diabetes N Bleeding Disorder N Seizures/Epilepsy N Tuberculosis N Urinary Tract Infection N Back Problems Y Diverticulitis N Asthma N Lupus N Peripheral Vascular Disease N Sleep Disorder N GERD/Reflux N Hepatitis N Aneurysm N Thyroid Cancer N Heart Disease N Pulmonary Embolism N Hypertension Y Osteoporosis N Past Encounters Encounter ID Performer Location Encounter Start Date Encounter Closed Date Diagnosis/Indication Diagnosis SNOMED-CT Code Diagnosis ICD10 Code Diagnosis Note [id number] SUSANA MCKENNA [facility] [address] [facility] ,[address] [place] [address] 10/20/2019 12:25:58 10/28/2019 11:20:36 Low back pain 517822478 M54.5 Screening procedure 2012 5006 Z13.9 R53.83 M89.9 M94.9 Z12.5 Z01.812 E55.9 Degenerati on of lumbar intervertebral disc 06733108 M51.36 Arthropath y of lumbar facet joint 997049916 M46.96 Lumbar radiculopathy 128 436472 M54.16 At todays office visit the patient's diagnosis and treatment options were discussed in great detail. The patient was provided with informatio n to make an informativ e decision on the next steps for treatment. Given that the patient has failed conservati ve measures including but not limited to PT, NSAIDs and rest without beneficial relief I do feel it is reasonable to undergo an MRI of the lumbar spine and follow up to discuss treatment options. The MRI will provide necessary informatio n to determine the next course of action for the patient in his treatment plan. All questions were answered and the patient understood the treatment plan. The patients case and treatment plan were discussed with Dr. Espana. Greater than 45 minutes face-to-fa ce visit with more than 50% of my time spent counseling the patient about their diagnosis including pathophysi ology and treatment options. [id number] SUSANA MCKENNA [facility] [address] 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 The patient was provided with informatio n to make an informativ e decision on the next steps for treatment. The patient has tried several conservati ve measures including but not limited to PT, rest, ice, and NSAIDs with no beneficial relief. Given the imaging results and the duration of the patient's symptoms I would recommend BMAC with fat as they are an excellent candidate. We discussed the need for PRP at [facility] the 12-week govind. The risk and benefits were discussed with the patient as well as functional and pain improvemen t outcomes. The procedure was discussed in detail as well as the recovery period. We discussed screening with R3 and its importance . We also discussed obtaining labs to ensure the patient is optimized for maximal results. I also discussed other conservati ve options. The patients case and treatment plan were reviewed in detail with Dr. Espana. PLAN: [facility]/fat to L3-4, L4-5 and L5-S1 discs and facet as well as a caudal injection under fluoroscop y patient is also interested in prone ox. With pronox of final cost would be 4005 All questions were answered, the patient understood the treatment plan. Greater than 30 minutes face-to-fa ce visit with more than 15 minutes of my time spent counseling the patient about their diagnosis including pathophysi ology and treatment options. Health Concerns Section Related Observation LastModified by Organization Detai ls LastModified Time None Recorded Concern Status LastModified by Organization Details LastModified Time None Recorded Advance Directives Directive None Recorded Payers Encounter Date Sequence Insurance Name Policy Number Policy Juan Covered Member ID Juan Member ID Guarantor Name 10/20/2019 1 [place] [id number] [place] Muse [id number] [place] Muse 11/17/2019 1 [place] [id number] Barrington Muse [id number] [employer] Muse Notes Date Note Type Note Provider Name and Address Organization Details Recorded Time 10/20/2019 text/html Pain Score Pain scale from 0-10, 10 being the worst 7 Chief Complaint Why are you here today? Back Pain radiating to extremities When did the problem start More than 3 months ago Pain scale from 0-10, 10 being the worst 7 Over time is the problem getting better or worse? Worse Pain Description Aching Sharp Shooting Throbbing Time of day when pain is at its worst Evening What makes the pain better? Laying down Have you seen another doctor for this? Yes Name of the doctor Dr De La Torre Previous Methods Tried to Manage Pain Anti-inflammatory Medications Exercise Pain Meds Physical therapy Tylenol Has patient ever had injections? Yes Date of last injection 06/17/2019 Imported from [email or web address] on 10/20/2019 SUSANA MCKENNA [address], [place], [address], [facility] [employer], [employer] 11/17/2019 09:28:53 11/17/2019 text/html 64 year old patient presents today with lowe back pain still, following up on MRI to review plan of care for treatment. Pain Score Pain scale from 0-10, 10 being the worst 4 Chief Complaint Pain scale from 0-10, 10 being the worst 4 Imported from [email or web address] on 11/17/2019 SUSANA MCKENNA [address], [place], [address], [facility] 11/17/2019 10:10:45
--- OUTSIDE RECORDS SUMMARY | 2025-01-25 12:20 | XMS_ITS | Clinical Summary ---
Author Organization [facility] Address [address] [place]: Epic Prelude ADT [place] [address] Care Team Providers Care Washing And Screening Plant Supervisor Name Role Phone Unavailable Primary Care Provider Unavailabl e Social History Tobacco Use Types Packs/Day Years Used Date Smoking Tobacco: Never Assessed Sex and Gender Information Value Date Recorded Sex Assigned at Not on file Legal Sex Male 5:01 AM RN PRO[facility] Gender Identity Not on file Sexual Orientation Not on file Plan of Treatment Health Maintenance Due Date Last Done Comments DTAP/TDAP/TD VACCINES (1 - Tdap) 1974 COLORECTAL SCREENING 2000 Colorectal Cancer Screening 2000 FIT-DNA Q 3 years 2000 FIT/FOBT Q 1 year 2000 Flex Sig/CT Colonography Q 5 years 2000 PNEUMOCOCCAL VACCINE 50+ YEARS (1 of 1 - PCV) 09/14/20 05 ZOSTER VACCINE (1 of 2) 2005 INFLUENZA VACCINE (#1) 2024 RSV VACCINE (60+ or ) (1 - 1-dose 75+ series) 2030
--- OUTSIDE RECORDS SUMMARY | 2025-01-25 12:20 | XMS_ITS | Encounter Summary ---
Author Organization [facility] Address [address] [facility] [place] [address] Care Team Providers Care Flight Engineer Name Role Phone Joni Watt MD Primary Care Provider [phone] Encounter Details Date Type Department Care Team (Late Contact Info) Description 11/24/2020 Lab Requisition [facility] [address] [facility] [place] [address] Jose Posadas MD [address] [place] [address] Social History Tobacco Use Types Packs/Day Years Used Date Smoking Tobacco: Never Assessed Sex and Gender Information Value Date Recorded Sex Assigned at Not on file Gender Identity Not on file Sexual Orientation Not on file documented as of this encounter Plan of Treatment Upcoming Encounters Date Type Department Care Team (Late Contact Info) Description 03/30/2025 10:00 AM CDT Office Visit [facility] [address] [place] [address] Ferny Rubi MD [address] [facility] [address] [place] [address] documented as of this encounter Procedures Procedure Name Priority Date/Time Associated Diagnosis Comments DERMATOPATHOLOGY Routine 11/22/2020 3:2 7 AM BLOCK BREAKER documented in this encounter Results * DERMATOPATHOLOGY (11/22/2020 3:27 AM BLOCK BREAKER) Case Report Dermatopathology Report Case: [id number] Authorizing Provider: Jose Posadas MD Collected: 11/22/2020 03:27 AM Ordering Location: [facility] Received: 11/24/2020 07:49 AM Pathologist: Magdalene Urrutia MD Specimen: Skin, right post scalp 1:03 PM [facility] Final Diagnosis Specimen A. SKIN, right post scalp: PIGMENTED SEBORRHEIC KERATOSIS (L82.1) 1:03 PM [facility] Clinical History SK vs MM. Path# [id number]. 1:03 PM [facility] Gross Description Specimen A: Received is one formalin filled container labeled with the patient's name and designated right post scalp. The specimen consists of a shave biopsy measuring [id number]. Jar 0. 1:03 PM [facility] Microscopic Description Specimen A. SKIN, right post scalp: Sections show an acanthotic lesion composed of relatively uniform keratinocytes. There is hyperkeratosis and pseudo horn cysts. Pigment is present in the keratinocytes composing this tumor. 1:03 PM [facility] Disclaimer An external and internal positive and negative controls are appropriate for the histochemical, immunohistochemical and immunofluorescence stain(s) in this case (if any), except where stated explicitly. The performance characteristics of the stain(s) cited in this report were developed and its performance characteristic determined by the Dermatopathology Laboratory at [facility], directed by Dr. Christal Ratliff. These tests need not be, and therefore are not, approved by the [place] Food and Drug Administration. The tests are used for clinical purposes. Billing Codes Specimen Charges Stain Charges 18752 1 1:03 PM [facility] Embedded Images 1:03 PM [facility] Pathology/Cytolo gy TISSUE SPECIMEN FROM SKIN / Unknown 11/22/2020 3:27 AM BLOCK BREAKER 11/24/2020 7:49 AM BLOCK BREAKER Jose Posadas MD LAB - PATHOLOGY/CYTO LOGY ORDERABLES DERMATOPATHOLOGY LABORATORY [facility] - Department of Dermatology [facility] [address] [place] [address], [address] [phone] documented in this encounter Visit Diagnoses Not on filedocumented in this encounter Care Teams Flight Engineer Relationship Specialty Start Date End Date Joni Watt MD [address] [facility] [address] [place] [address] PCP - General Internal Medicine 06/16/21 documented as of this encounter
--- OUTSIDE RECORDS SUMMARY | 2025-01-25 12:20 | XMS_ITS | Referral Summary ---
Author Organization [facility] Address [address] [place] [address] Care Team Providers Care Speedometer Inspector Name Role Phone Joni Watt MD Primary Care Provider [phone] Encounters Date Type Department Care Team Description 12/01/2024 10:11 AM MOSS GATHERER - 12/01/2024 11:59 PM MOSS GATHERER Hospital Encounter [id number] [address] [place] [address] [address] [place] [id number] S/P total right hip arthroplasty Discharge Disposition: Discharge to home or self care 12/01/2024 10:50 AM MOSS GATHERER Office Visit [facility] Orth[facility] Surgery [address] [place] [address] Medical Office Building [address] [place] [address] Cristian Triana MD S/P total right hip arthroplasty (Primary Dx); Surgical follow-up care from Last 3 Months Allergies No known active allergies Medications gabapentin [...] regimen. Assessment & Plan (09/20/2022 1:31 PM MOSS GATHERER): -Recent issue with worsening LUTS. He was [...] us. Assessment & Plan (09/20/2022 1:36 PM MOSS GATHERER): -Per patient, previous PSA done Aug 2021 [...] symptoms. Assessment & Plan (09/21/2021 3:59 PM MOSS GATHERER): -On tamsulosin with improvement in urinary symptoms. [...] 12/05/2020 Assessment & Plan (12/05/2020 2:14 PM MOSS GATHERER): Patient describes more recent history of a [...] He can continue using supplemental acetaminophen or fqcz-mcg-amemvip anti-inflammatories on an as-needed basis at this time. Migraine without aura, not i ntractable, without status migrainosus 12/05/2020 Assessment & Plan (12/05/2020 2:14 PM MOSS GATHERER): Patient's former patient of [facility] being treated with propranolol for prophylaxis of migraine without aura. He cites good efficacy and tolerability with his regiment. Prior medical records from [facility] have been requested although are yet to be obtained. Another request will be placed today. I have renewed his propranolol as previously scheduled at 40 mg daily. I will plan on seeing him back in 1 year. Oropharyngeal dysphagia 12/05/2020 Assessment & Plan (12/05/2020 2:12 PM MOSS GATHERER): Patient's history of oropharyngeal dysphagia diagnosed following [...] 09/21/2021 Assessment & Plan (09/21/2021 3:57 PM MOSS GATHERER): -Resolved several days after first appearance. Assessment [...] 09/21/2021 Assessment & Plan (09/21/2021 3:58 PM MOSS GATHERER): -Completely resolved after seeing theatre arts professor and having banding of internal hemorrhoids. Immunizations Immunization Administration Dates Next Due Pfizer SARS-CoV-2 Monovalent Vaccination (12+ Yrs) PURPLE 02/07/2021,01/24/2021 Social History Tobacco Use Types Packs/Day Years [...] on file Legal Sex Male 1:43 AM MOSS GATHERER Gender Identity Not on file Sexual Orientation Not on file Last Filed Vital Signs Vital Sign Reading Time Taken Comments Blood Pressure 112/66 10/20/2024 8:00 AM MOSS GATHERER Pulse 66 10/20/2024 8:00 AM MOSS GATHERER Temperature 36.3 C (97.3 F) 10/20/2024 8:00 AM MOSS GATHERER Respiratory Rate 18 10/20/2024 8:00 AM MOSS GATHERER Oxygen Saturation 97% 10/20/2024 8:00 AM MOSS GATHERER Inhaled Oxygen Concentration - - Weight 71.3 kg (157 lb 3.2 oz) 10/19/2024 12:25 PM MOSS GATHERER Height 170.2 cm (5' 7 ) 10/19/2024 12:25 PM MOSS GATHERER Body Mass Index 24.62 10/19/2024 12:25 PM MOSS GATHERER Plan of Treatment Not on file Medical Devices Implanted Type Area Assurance Senior Manager Device Identifier Shelf Expiration Date Model / Serial / Lot Plate Plate Right: Hip [employer] [place] 6.5mm 15mm Acetabular Cancellous Screw Bone Sterile 1217-15-500 - [id number] Implanted:Qty: 1 on 10/19/2024 at [facility] Right: Hip Depuy Orthopaed[employer] Inc 08/02/2034 1217-15-500 / / [id number] Depuy [employer]ed[employer] Inc Shell Acetabular Emsys Shl 3hole 58 [id number] - [id number] Implanted:Qty: 1 on 10/19/2024 at [facility] Right: Hip [employer]uy [employer] Inc 12/31/2033 [id number] / / [id number] Depuy [employer] Inc Liner Acetabular 24u02mh Emphasys Polyethylene Hip Joint Mb [id number] - [id number] Implanted:Qty: 1 on 10/19/2024 at [facility] Right: Hip [employer]uy [employer] Inc 12/31/2028 [id number] / / [id number] Dep[employer] [place] 6.5mm 20mm Acetabular Cancellous Screw Bone Sterile 121 - [id number] Implanted:Qty: 1 on 10/19/2024 at [facility] Right: Hip Depuy [employer] Inc 07/03/2034 121500 / / [id number] Depuy Orth[employer] Inc Articul/Hank 28mm Cementless Hip +1.5mm /14 Taper Head Femoral Latex Free [id number] - [id number] Implanted:Qty: 1 on 10/19/2024 at [facility] Right: Hip [employer]uy [employer] Inc 06/02/2027 [id number] / / [id number] Depuy [employer] [place] 6.5mm 30mm Acetabular Cancellous Screw Bone Revision 121 - [id number] Implanted:Qty: 1 on 10/19/2024 at [facility] Right: Hip [employer]uy [employer] Inc 07/03/2034 121500 / / [id number] Depuy [employer] Inc Actis Collar Hip 7 High Offset Stem Femoral [id number] - [id number] Implanted:Qty: 1 on 10/19/2024 at [facility] Right: Hip [employer]uy [employer] Inc 08/02/2034 [id number] / / [id number] Depuy [employer] Inc Liner Acetabular 56-58mm Emphasys Metallic Strl Dual Mbl [id number] - [id number] Implanted:Qty: 1 on 10/19/2024 at [facility] Right: Hip [employer]uy [employer] Inc 07/03/2034 [id number] / / [id number] Procedures Procedure Name Priority Date/Time Associated Diagnosis Comments XR HIP RIGHT W PELVIS 2 OR 3 VIEWS Schedule Routine, Read Routine (OP Routine) 12/01/2024 10:23 AM MOSS GATHERER S/P total right hip arthroplasty PSA SCREENING Routine 08/27/2021 from Last 3 Months or Most Recently Relevant to Health Maintenance Results * XR Hip Right 2 or 3 Views W Pelvis (12/01/2024 10:23 AM MOSS GATHERER) Anatomical Region Laterality Modality Lower Extremities, Hip, Pelvis Right C omputed Radiography 12/01/2024 10:3 1 AM MOSS GATHERER Impressions 12/01/2024 10:31 AM MOSS GATHERER Right total hip arthroplasty in near-anatomic position. Electronically signed by: Georges Dietz M.D. Narrative 12/01/2024 10:31 AM MOSS GATHERER EXAMINATION: XR HIP RIGHT 2 OR 3 [...] position. Electronically signed by: Georges Dietz M.D. us Cristian Triana MD IMG XR PROCEDURES Final R esult * PSA SCREENING (08/27/2021) PSA Screen 0.9 EXTERNAL LAB 08/27/2021 us Historical Provider HEALTH MAINTENANCE Final Result EXTERNAL LAB from Last 3 Months or Most Recently Relevant to Health Maintenance Insurance MEDICARE [employer] MEDICARE [employer] MEDICARE Advance Directives For more information, please contact: [phone] * Full Code (Latest Code Status on File) Date Activated Date Inactivated Comments 10/19/2024 6:26 PM 10/20/2024 4:25 PM Care Teams Speedometer Inspector Relationship Specialty Start Date End Date Joni Watt MD [address] [facility] [address] [place] [place] [address] PCP - General 04/24/12
--- OUTSIDE RECORDS SUMMARY | 2025-01-25 12:20 | XMS_ITS | Continuity of Care Document ---
Author Name Auto Generated, Auto Generated Organization [facility] Support Name Relationship Address Phone Brook Burgos Spouse Unknown [phone] Summary Purpose Consult/Referral Allergies, Adverse Reactions, Alerts Type Description/Agent Code Date Allergy Active Date Allergy Inactivated Date of Last Reaction Adverse Reactions Severity Status Comments Source of Information FDB Speci fic Aller gen Group No Known Allergies Active Patient History Medications No Known Medications Conditions/Problems Problem/Diagnosis Awareness of Diagnosis Code (ICD-10) Onset Date (Start Date) Resolution Date (End Date) Status Source Comments AFTERCARE FOLLOWING JOINT REPLACEMENT SURGERY Z47.1 10/20/20 24 Active MD Cristian Triana Procedures No Known Procedures
== END 2025-01-25 10:27 | disposition home or self-care (01) ==
PROVIDERS: PCP Internal Medicine; Visit Provider Internal Medicine
DX: R10.30 Lower abdominal pain, unspecified (principal); N50.819 Testicular pain, unspecified; N50.3 Cyst of epididymis; K42.9 Umbilical hernia without obstruction or gangrene; K40.20 Bilateral inguinal hernia, without obstruction or gangrene, not specified as recurrent
CPT/HCPCS: 74177; 76870; 93976; Q9967

== ENCOUNTER 2025-05-20 14:19 | Outpatient (CLI) | payer MEDICARE, SELFPAY ==
--- OUTSIDE RECORDS SUMMARY | 2025-05-20 14:24 | XMS_ITS ---
Author Name Auto Generated, Auto Generated Organization [facility] ice Address [address] [place] [address] Phone [phone] Care Team Providers Care Fur Scraper Name Role Phone rCistian Triana Unavailable [phone] Joni Watt Unavailable [phone] Functional Status No Results Mental Status No Results Allergies and Intolerances Name Onset Date Reaction Severity No Known Allergies (Allergy) FriOct 17 10:26:00 EST 2023 Problems Active Concerns * Aftercare following joint replacement surgery* Code: * Start Date: FriOct 20 00:00:00 EST 2023 * End Date: * Text: Reason for Referral
--- OUTSIDE RECORDS SUMMARY | 2025-05-20 14:24 | XMS_ITS | Clinical Summary ---
Author Organization [facility] Address [address] [place] [address] Care Team Providers Care Screening Representative Name Role Phone Joni Watt MD Primary Care Provider [phone] Source Comments [facility],non-owned Affiliates and Associated Physician Practices is amultiple site organization consisting of ambulatory clinics and hospital sitesin [place], [place], [place] and [place]. This disclosure is being madepursuant to the Care Everywhere program and may not contain all information available regarding this patient. Last updated 18.[facility] Allergies No known active allergies Medications * Be aware that medications may not be up to date on this document. Alwaysverify current medications with the patient. colesevelam (WELCHOL) 625 MG tablet TAKE 6 TABLETS BY MOUTH EVERY DAY 1 Active pravastatin (PRAVACHOL) 40 MG tablet TK 1 T PO D 0 Active irbesartan (AVAPRO) 150 MG tablet 1 (one) tablet once daily 1 Active diclofenac sodium XR 24hr (VOLTAREN XR) 100 MG tablet TK 1 T PO BID 0 Active tamsulosin (FLOMAX) 0.4 MG capsule Take 1 (one) capsule by mouth once daily 1 Active omeprazole (PRILOSEC) 20 MG capsule Take 20 mg by mouth daily before breakfast Active escitalopram (LEXAPRO) 10 MG tablet 10 mg once daily 1 Active ezetimibe (Zetia) 10 MG tablet Take 1 (one) tablet by mouth once daily 2 Active terbinafine (LamISIL) 250 MG tablet Take 1 (one) tablet by mouth once daily Active gabapentin (Neurontin) 600 MG tablet Take 1 (one) tablet by mouth 3 times daily 270 tablet 3 4 Active Social History Tobacco Use Types Packs/Day Years Used Date Smoking Tobacco: Never Smokeless Tobacco: Never Tobacco Cessation:Counseling Given: No Alcohol Use Standard Drinks/Week Comments Not Currently 0 (1 standard drink = 0.6 oz pur e alcohol) Sex and Gender Information Value Date Recorded Sex Assigned at Not on file Legal Sex Male 6:24 PM DIRECTOR OF MARKETING OPERATIONS Gender Identity Not on file Sexual Orientation [...] 12:59 PM CDT Height 170.2 cm (5' 7) 08/30/2024 12:59 PM CDT Body Mass Index 25.84 08/30/2024 12:59 PM CDT Plan of Treatment Health Maintenance Due Date [...] - 2023-2 5 season) 2024 02/07/2021, 01/24/2021 DEPRESSION SCREENING 11/03/2024 INFLUENZA VACCINE (#1) 2025 Respiratory Syncytial Virus (RSV) Vaccine Pt: or [...] COMPREHENSIVE METABOLIC PANEL (06/16/2021 4:12 PM CDT) Pathologist [facility] Glucose 104 70 - 105 mg/dL 06/16/2021 4:36 PM CDT [facility] Sodium 139 136 - 145 mmol/L 06/16/2021 4:36 PM CDT [facility] Potassium 5.1 3.5 - 5.1 mmol/L 06/16/2021 4:36 PM CDT [facility] Chloride 106 98 - 107 mmol/L 06/16/2021 4:36 PM CDT [facility] CO2 22(L) 23 - 31 mmol/L 06/16/2021 4:36 PM CDT [facility] Calcium 9.5 8.4 - 10.4 mg/dL 06/16/2021 4:36 PM CDT [facility] Anion Gap 11 8 - 18 mmol/L 06/16/2021 4:36 PM CDT [facility] BUN 17 8.4 - 25.7 mg/dL 06/16/2021 4:36 PM CDT [facility] Creatinine 1.06 0.72 - 1.25 mg/dL 06/16/2021 4:36 PM CDT [facility] Alkaline Phosphatase 66 40 - 150 [...] - 1.2 mg/dL 06/16/2021 4:36 PM CDT [facility] eGFR by MDRD >60 >60 mL/min/1.7 3m2 06/16/2021 4:36 PM CDT [facility] eGFR by MDRD >60 >60 mL/min/1.7 3m2 06/16/2021 4:36 PM CDT [facility] Blood BLOOD SPECIMEN / Unknown Venipuncture / Unknown 06/16/2021 4:12 PM CDT 06/16/2021 4:18 PM CDT Mary Jane ACCOUNTING SUPERVISOR-SEAFOOD SPECIALIST LAB - CHEMISTRY ORDERAB LES Final Result Performing Organization Address City/State/[facility] [[email or web address]] Co de Phone Number [facility] [address] [place], [place] [id number] from Last 3 Months or Most Recently Relevant to Health Maintenance Insurance MEDICARE MEDICARE COMMER[employer] GENERIC Care Teams Screening Representative Relationship Specialty Start Date End Date Joni Watt MD [address] [place] [address] [place] [address] PCP - General Internal Medicine 06/16/21
--- OUTSIDE RECORDS SUMMARY | 2025-05-20 14:25 | XMS_ITS | Referral Summary ---
Author Organization [facility] Address [address] [place] [address] Care Team Providers Care Wireline Operator Name Role Phone Joni Watt MD Primary Care Provider [phone] Allergies No known active allergies Medications gabapentin [...] WHILE TAKING MELOXICAM 30 tablet 4 Active amoxicillin 500 mg tablet/capsuleIn dications:Prophy laxis, Medical TAKE 4 PILL 1 HOUR BEFORE DENTAL APPOINTMENT. 12 tablet/capsu le 5 Active Active Problems Problem Noted Date Diagnosed Date S/P total right hip arthroplasty 10/19/2024 Primary osteoarthritis of right hip 05/19/2024 Benign localized prostatic h yperplasia with lower urinary tract symptoms (LUTS) 09/20/2022 Assessment & Plan (04/10/2023 3:25 PM CDT): -Continues to do well on flomax 0.8mg. -No s/e noted. PLAN: -Continue this regimen. Assessment & Plan (09/20/2022 1:31 PM HOME CHILD CARE PROVIDER): -Recent issue with worsening LUTS. He was [...] us. Assessment & Plan (09/20/2022 1:36 PM HOME CHILD CARE PROVIDER): -Per patient, previous PSA done Aug 2021 [...] symptoms. Assessment & Plan (09/21/2021 3:59 PM HOME CHILD CARE PROVIDER): -On tamsulosin with improvement in urinary symptoms. [...] 12/05/2020 Assessment & Plan (12/05/2020 2:14 PM HOME CHILD CARE PROVIDER): Patient describes more recent history of a [...] He can continue using supplemental acetaminophen or dmmr-wzc-lpjcbnv anti-inflammatories on an as-needed basis at this time. Migraine without aura, not i ntractable, without status migrainosus 12/05/2020 Assessment & Plan (12/05/2020 2:14 PM HOME CHILD CARE PROVIDER): Patient's former patient of [facility] being treated with propranolol for prophylaxis of migraine without aura. He cites good efficacy and tolerability with his regiment. Prior medical records from [facility] have been requested although are yet to be obtained. Another request will be placed today. I have renewed his propranolol as previously scheduled at 40 mg daily. I will plan on seeing him back in 1 year. Oropharyngeal dysphagia 12/05/2020 Assessment & Plan (12/05/2020 2:12 PM HOME CHILD CARE PROVIDER): Patient's history of oropharyngeal dysphagia diagnosed following [...] 09/21/2021 Assessment & Plan (09/21/2021 3:57 PM HOME CHILD CARE PROVIDER): -Resolved several days after first appearance. Assessment [...] 09/21/2021 Assessment & Plan (09/21/2021 3:58 PM HOME CHILD CARE PROVIDER): -Completely resolved after seeing assembler show motor and having banding of internal hemorrhoids. Immunizations [...] on file Legal Sex Male 1:43 AM HOME CHILD CARE PROVIDER Gender Identity Not on file Sexual Orientation Not on file Last Filed Vital Signs Vital Sign Reading Time Taken Comments Blood Pressure 112/66 10/20/2024 8:00 AM HOME CHILD CARE PROVIDER Pulse 66 10/20/2024 8:00 AM HOME CHILD CARE PROVIDER Temperature 36.3 C (97.3 F) 10/20/2024 8:00 AM HOME CHILD CARE PROVIDER Respiratory Rate 18 10/20/2024 8:00 AM HOME CHILD CARE PROVIDER Oxygen Saturation 97% 10/20/2024 8:00 AM HOME CHILD CARE PROVIDER Inhaled Oxygen Concentration - - Weight 71.3 kg (157 lb 3.2 oz) 10/19/2024 12:25 PM HOME CHILD CARE PROVIDER Height 170.2 cm (5' 7) 10/19/2024 12:25 PM HOME CHILD CARE PROVIDER Body Mass Index 24.62 10/19/2024 12:25 PM HOME CHILD CARE PROVIDER Plan of Treatment Not on file Medical Devices Implanted Type Area Carriage Operator Device Identifier Shelf Expiration Date Model / Serial / Lot Plate Plate Right: Hip [employer] [place] 6.5mm 15mm Acetabular Cancellous Screw Bone Sterile - [id number] Implanted:Qty: 1 on 10/19/2024 at [facility] Right: Hip [employer] Inc 08/02/2034 / / [id number] [employer] Shell Acetabular Emsys Shl 3hole 58 [id number] - [id number] Implanted:Qty: 1 on 10/19/2024 at [facility] Right: Hip [employer] Inc 12/31/2033 [id number] / / [id number] Dep[employer] Liner Acetabular 75w88ff Emphasys Polyethylene Hip Joint Mb [id number] - [id number] Implanted:Qty: 1 on 10/19/2024 at [facility] Right: Hip [employer] Inc 12/31/2028 [id number] / / [id number] Dep[employer] [place] 6.5mm 20mm Acetabular Cancellous Screw Bone Sterile 1217-- - [id number] Implanted:Qty: 1 on 10/19/2024 at [facility] Right: Hip [employer] Inc 07/03/2034 121-500 / / [id number] [employer] Articul/Hank 28mm Cementless Hip +1.5mm 12/14 Taper Head Femoral Latex Free [id number] - [id number] Implanted:Qty: 1 on 10/19/2024 at [facility] Right: Hip [employer] 06/02/2027 [id number] / / [id number] [employer] [place] 6.5mm 30mm Acetabular Cancellous Screw Bone Revision 121 - [id number] Implanted:Qty: 1 on 10/19/2024 at [facility] Right: Hip [employer] 07/03/2034 121 / / [id number] Dep[employer] Actis Collar Hip 7 High Offset Stem Femoral [id number] - [id number] Implanted:Qty: 1 on 10/19/2024 at [facility] Right: Hip [employer] 08/02/2034 [id number] / / [id number] [employer] Liner Acetabular 56-58mm Emphasys Metallic Strl Dual Mbl [id number] - [id number] Implanted:Qty: 1 on 10/19/2024 at [facility] Right: Hip [employer] 07/03/2034 [id number] / / [id number] Procedures Procedure Name Priority Date/Time Associated Diagnosis Comments PSA SCREENING Routine 08/27/2021 from Last 3 Months or Most Recently Relevant to Health Maintenance Results * PSA SCREENING (08/27/2021) PSA Screen 0.9 EXTERNAL LAB 08/27/2021 us Historical Provider MD HEALTH MAINTENANCE Final Result EXTERNAL LAB from Last 3 Months or Most Recently Relevant to Health Maintenance Insurance [employer] MEDICARE [employer] MEDICARE Advance Directives For more information, please contact: [phone] * Full Code (Latest Code Status on File) Date Activated Date Inactivated Comments 10/19/2024 6:26 PM 10/20/2024 4:25 PM Care Teams Wireline Operator Relationship Specialty Start Date End Date Joni Watt MD [address] [place] [address] [place] [address] PCP - General 04/24/12
--- OUTSIDE RECORDS SUMMARY | 2025-05-20 14:25 | XMS_ITS | Data Portability ---
Author Organization [facility] [employer], [employer], [facility] Address [address] [address] Care Team Providers Care Histotechnologist Name Role Phone KATARINAKERON Emery Primary Care Provider Assessment No assessment recorded. Plan of Treatment Reminders Order Date Submit Date Provider Last Modified By Organization Details Last Modified Time Details Appointments None recorded. Lab PSA, serum or plasma 2018 019 [email or web address] Not available 9 15:39:48 CBC w/ auto diff 2018 019 [email or web address] Not available 9 15:39:48 vitamin D, 25-hydroxy, total, serum 2018 019 Not available 9 15:39:48 testosteron e, free, serum 2018 019 [email or web address] Not available 9 15:39:48 testosteron e, total, serum 2018 019 [email or web address] Not available 9 15:39:48 Referral None recorded. Procedures None recorded. Surgeries None recorded. Imaging XR, lumbar spine - room 7 2018 019 [email or web address] Not available 9 15:39:48 MRI, lumbar spine, w/o contrast - History of DDD, has failed PT, oral and injectable pain control/aman roid. Please compare to MRI from 08/17/18. Send to [facility] [place]. Will prescribe pt valium prior to scan. 12/18/ 2019 12/18/2 019 AMBER [facility] ([facility]), [address] [place], [address], 0 15:37:58 Medication Orders None recorded. Patient [...] record ed. [email or web address] [facility] ([facility]) [address] [place], [address], 11/15/2019 16:16:49 11/15/19 20 11/15/2019 MRI, lumba r spine , w/o contr ast No observ ation record ed. [email or web address] [facility] ([facility]) [address] [place], [address], 11/17/2019 13:26:49 11/20/19 20 11/15/2019 unk No observ ation record ed. [email or web address] [facility] [address] [place], [address], 11/24/2019 16:26:54 Result Notes None recorded. Problems No Known Problems Procedures Surgical History Date Name Laterality Status Provider Name and Address Organization Details Recorded Time 11/17/19 Generic Procedure completed SUSANA MCKENNA [address], [place], [address], [facility] [email or web address] [facility], [facility] 11/17/2019 10:07:04 10/20/20 Generic Procedure completed SUSANA MCKENNA [address], [place], [address], [facility] [place] [employer] [facility], [facility] 11/17/2019 09:28:44 Shoulder Surgery completed Margaret Wilson [facility] [facility] 10/20/2019 13:20:42 Cardiac Catheterization completed Margaret ENRIQUE [facility] 10/20/2019 13:20:42 [facility] 10/20/2019 13:20:42 Imaging Results None recorded. Procedure Notes None recorded. Medical Equipment None [...] index (BMI) Body weight Heart rate Systolic And Diastolic Provider Name and Address Organization Details Last Updated DateTime 11/17/2019 170.18 cm 25.8 kg/m2 83953.74 g 73 /min 131/90 mm[Hg] [employer] ENRIQUE [employer] [facility] 11/17/2019 09:28:19 Date Recorded Body height Body mass index (BMI) Body weight Heart rate Systolic And Diastolic Provider Name and Address Organization Details Last Updated DateTime 10/20/2019 170.18 cm 25.8 kg/m2 33587.74 g 62 /min 143/79 mm[Hg] Margaret Wilson [employer] [facility] 10/20/2019 13:20:08 Social History Question Answer Notes LastModified by [employer] Details LastModified Time Tobacco Smoking Status Never Smoker Margaret pena [employer] [facility] 10/20/2019 13:20:36 Auto Related Injury? No Information not available [...] Functional Status Question Answer Note LastModified by [employer] Details LastModified Time What is your level of alcohol consumption? Occasional Information not available 10/20/2019 What is your exercise level? Moderate Information [...] Multiple Sclerosis N Ulcers N Heart Attack (SC) N Diabetes N Bleeding Disorder N Seizures/Epilepsy [...] SNOMED-CT Code Diagnosis ICD10 Code Diagnosis Note [id number] SUSANA MCKENNA [facility] [address] [facility] [address] [facility] [place] [address] 10/20/2019 12:25:58 10/28/2019 11:20:36 Low back pain 289746652 M54.5 Screening procedure 2012 5006 Z13.9 R53.83 M89.9 M94.9 Z12.5 Z01.812 E55.9 Degenerati on of lumbar intervertebral disc 82801097 M51.36 Arthropath y of lumbar facet joint 114267058 M46.96 Lumbar radiculopathy 128 645770 M54.16 At todays office visit the patient's [...] diagnosis including pathophysi ology and treatment options. [id number] SUSANA MCKENNA [facility] 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 The risk and benefits [...] Recorded Advance Directives Directive None Recorded Payers Insurance Date Sequence Insurance Name Policy Number Policy Juan Covered Member ID Juan Member ID Guarantor Name 08/08/2020 1 [place] [id number] Barrington Muse [id number] Barrington Muse Notes Date Note Type [...] Date of last injection 06/17/2019 Imported from [employer] on 10/20/2019 SUSANA MCKENNA [id number], [address], [facility] 11/17/2019 09:28:53 11/17/2019 text/html 64 year old patient presents today with lowe back pain still, following up on MRI to review plan of care for treatment. Pain Score Pain scale from 0-10, 10 being the worst 4 Chief Complaint Pain scale from 0-10, 10 being the worst 4 Imported from [employer] on 11/17/2019 SUSANA MCKENNA [address], [place], [address], [employer], [employer] 11/17/2019 10:10:45
--- OUTSIDE RECORDS SUMMARY | 2025-05-20 14:25 | XMS_ITS | Clinical Summary ---
Author Organization [facility] Address [address] [place] [address] Care Team Providers Care Foundation Engineer Name Role Phone Joni Watt MD Primary Care Provider [phone] Allergies No known active allergies Medications gabapentin [...] regimen. Assessment & Plan (09/20/2022 1:31 PM SEAT COVERS TRIMMER): -Recent issue with worsening LUTS. He was [...] us. Assessment & Plan (09/20/2022 1:36 PM SEAT COVERS TRIMMER): -Per patient, previous PSA done Aug 2021 [...] symptoms. Assessment & Plan (09/21/2021 3:59 PM SEAT COVERS TRIMMER): -On tamsulosin with improvement in urinary symptoms. [...] 12/05/2020 Assessment & Plan (12/05/2020 2:14 PM SEAT COVERS TRIMMER): Patient describes more recent history of a [...] He can continue using supplemental acetaminophen or [id number] anti-inflammatories on an as-needed basis at this time. Migraine without aura, not i ntractable, without status migrainosus 12/05/2020 Assessment & Plan (12/05/2020 2:14 PM SEAT COVERS TRIMMER): Patient's former patient of [facility] being treated with propranolol for prophylaxis of migraine without aura. He cites good efficacy and tolerability with his regiment. Prior medical records from [facility] have been requested although are yet to be obtained. Another request will be placed today. I have renewed his propranolol as previously scheduled at 40 mg daily. I will plan on seeing him back in 1 year. Oropharyngeal dysphagia 12/05/2020 Assessment & Plan (12/05/2020 2:12 PM SEAT COVERS TRIMMER): Patient's history of oropharyngeal dysphagia diagnosed following [...] 09/21/2021 Assessment & Plan (09/21/2021 3:57 PM SEAT COVERS TRIMMER): -Resolved several days after first appearance. Assessment [...] 09/21/2021 Assessment & Plan (09/21/2021 3:58 PM SEAT COVERS TRIMMER): -Completely resolved after seeing demurrage man and having banding of internal hemorrhoids. Immunizations Immunization Administration Dates Next Due Pfizer SARS-CoV-2 Monovalent Vaccination (12+ Yrs) PURPLE 02/07/2021,01/24/2021 Surgical History Surgery Date Site/Laterality Comments MT CHOLECYSTECTOMY Cholecystectomy - (Added by MY Conv) ROTATOR CUFF REPAIR Left FEMUR FRACTURE SURGERY Right CARDIAC ELECTROPHYSIOLOGY MA PPING AND ABLATION BACK SURGERY COLONOSCOPY Medical History Medical History Date Comments Hypertension Hypertension Hx Other Medical Arrhythmias (PS VT; AVNRT) Personal history of other di seases of the circulatory system History of hypertension - (A dded by MY Conv) Headache Hypercholesteremia Cancer (HCC) Blood in [...] on file Legal Sex Male 1:43 AM SEAT COVERS TRIMMER Gender Identity Not on file Sexual Orientation Not on file Obstetrics History Last Filed Vital Signs Vital Sign Reading Time Taken Comments Blood Pressure 112/66 10/20/2024 8:00 AM SEAT COVERS TRIMMER Pulse 66 10/20/2024 8:00 AM SEAT COVERS TRIMMER Temperature 36.3 C (97.3 F) 10/20/2024 8:00 AM SEAT COVERS TRIMMER Respiratory Rate 18 10/20/2024 8:00 AM SEAT COVERS TRIMMER Oxygen Saturation 97% 10/20/2024 8:00 AM SEAT COVERS TRIMMER Inhaled Oxygen Concentration - - Weight 71.3 kg (157 lb 3.2 oz) 10/19/2024 12:25 PM SEAT COVERS TRIMMER Height 170.2 cm (5' 7) 10/19/2024 12:25 PM SEAT COVERS TRIMMER Body Mass Index 24.62 10/19/2024 12:25 PM SEAT COVERS TRIMMER Plan of Treatment Health Maintenance Due Date Last Done Comments Colon Cancer Screening-Colonoscopy 1955 Depression Screening 1955 Hepatitis C Screening 1955 DTaP/Tdap/Td Vaccine (1 - Tdap) 1966 Hepatitis B Screening 1973 Pneumococcal vaccine 65+ (1 of 1 - PCV) 2005 Zoster Vaccine (1 of 2) 2005 Well Visit 65+ 2020 Prostate Cancer Screening-PSA 08/27/2023 08/27/2021 Covid-19 Vaccine ( season) 07/04/202405/2021, 01/24/2021 Influenza Vaccine (Season Ended) 2025 Fall Risk Assessment 10/20/2025 10/20/2024 Medical Devices Implanted Type Area Manager Cardiac Device Identifier Shelf Expiration Date Model / Serial / Lot Plate Plate Right: Hip [employer] [place] 6.5mm 15mm Acetabular Cancellous Screw Bone Sterile 1217-15-500 - [id number] Implanted:Qty: 1 on 10/19/2024 at [facility] Right: Hip [employer] 08/02/2034 121-15-500 / / [id number] [employer] Shell Acetabular Emsys Shl 3hole 58 [id number] - [id number] Implanted:Qty: 1 on 10/19/2024 at [facility] Right: Hip [employer] 12/31/2033 [id number] / / [id number] [employer] Liner Acetabular 83u77uo Emphasys Polyethylene Hip Joint Mb [id number] - [id number] Implanted:Qty: 1 on 10/19/2024 at [facility] Right: Hip [employer] 12/31/2028 [id number] / / [id number] [employer] [place] 6.5mm 20mm Acetabular Cancellous Screw Bone Sterile 1217-20-500 - [id number] Implanted:Qty: 1 on 10/19/2024 at [facility] Right: Hip [employer] 07/03/2034 121-500 / / [id number] [employer] Articul/Hank 28mm Cementless Hip +1.5mm 12/14 Taper Head Femoral Latex Free [id number] - [id number] Implanted:Qty: 1 on 10/19/2024 at [facility] Right: Hip [employer] 06/02/2027 [id number] / / [id number] [employer] [place] 6.5mm 30mm Acetabular Cancellous Screw Bone Revision - [id number] Implanted:Qty: 1 on 10/19/2024 at [facility] Right: Hip [employer] 07/03/2034 / / [id number] [employer] Actis Collar Hip 7 High Offset Stem Femoral [id number] - [id number] Implanted:Qty: 1 on 10/19/2024 at [facility] Right: Hip [employer] 08/02/2034 [id number] / / [id number] [employer] Liner Acetabular 56-58mm Emphasys Metallic Strl Dual Mbl [id number] - [id number] Implanted:Qty: 1 on 10/19/2024 at [facility] Right: Hip [employer] 07/03/2034 [id number] / / [id number] Procedures Procedure Name Priority Date/Time Associated Diagnosis Comments PSA SCREENING Routine 08/27/2021 from Last 3 Months or Most Recently Relevant to Health Maintenance Results * PSA SCREENING (08/27/2021) PSA Screen 0.9 EXTERNAL LAB 08/27/2021 us Historical Provider HEALTH MAINTENANCE Final Result EXTERNAL LAB from Last 3 Months or Most Recently Relevant to Health Maintenance Insurance MEDICARE [employer] MEDICARE [employer] INSURANCE [employer] MEDICARE Advance Directives For more information, please contact: [phone] * Full Code (Latest Code Status on File) Date Activated Date Inactivated Comments 10/19/2024 6:26 PM 10/20/2024 4:25 PM Care Teams Foundation Engineer Relationship Specialty Start Date End Date Joni Watt MD [address] [facility] [address] [facility] [facility] [place], [place] [id number] PCP - General 04/24/12
--- OUTSIDE RECORDS SUMMARY | 2025-05-20 14:25 | XMS_ITS ---
Author Name Auto Generated, Auto Generated Organization [facility] ice Address [address] [place] [address] Phone [phone] Care Team Providers Care Loader Operator/Ground Leader Name Role Phone Cristian Triana Unavailable [phone] Joni Watt Unavailable [phone] Functional Status Mental Status Allergies and Intolerances Problems Reason for Referral
--- OUTSIDE RECORDS SUMMARY | 2025-05-20 14:25 | XMS_ITS | Encounter Summary ---
Author Organization [facility] Address [address] [facility] [place] [address] Care Team Providers Care Oncology Social Work Name Role Phone Joni Watt MD Primary Care Provider [phone] Encounter Details Date Type Department Care Team (Late st Contact Info) Description 11/24/2020 Lab Requisition [facility] DermPath Lab [address] [facility] [place] [id number] Jose Posadas MD [address] [place] [address] Social History Tobacco Use Types Packs/Day Years Used Date Smoking Tobacco: Never Assessed Sex and Gender Information Value Date Recorded Sex Assigned at Not on file Legal Sex Male 6:24 PM IT ENGINEER Gender Identity Not on file Sexual Orientation Not on file documented as of this encounter Plan of Treatment Not on file documented as of this encounter Procedures Procedure Name Priority Date/Time Associated Diagnosis Comments DERMATOPATHOLOGY Routine 11/22/2020 3:27 AM IT ENGINEER documented in this encounter Results * DERMATOPATHOLOGY (11/22/2020 3:27 AM IT ENGINEER) Case Report Dermatopathology Report Case: [id number] Authorizing Provider: Jose Posadas MD Collected: 11/22/2020 03:27 AM Ordering Location: [facility] DermPath Lab Received: 11/24/2020 07:49 AM Pathologist: Magdalene Urrutia MD Specimen: Skin, right post scalp 1:03 PM IT ENGINEER DERMATOPATHOLOGY LABORATORY Final Diagnosis Specimen A. SKIN, right post scalp: PIGMENTED SEBORRHEIC KERATOSIS (L82.1) 1 1:03 PM [facility] DERMATOPATHOLOGY LABORATORY at [address] IT ENGINEER Clinical History SK vs MM. Path# [id number]. 1 1:03 PM [facility] DERMATOPATHOLOGY LABORATORY Gross Description Specimen A: Received is one formalin filled container labeled with the patient's name and designated right post scalp. The specimen consists of a shave biopsy measuring [id number]. Jar 0. 1 1:03 PM [facility] DERMATOPATHOLOGY LABORATORY Microscopic Description Specimen A. SKIN, right post scalp: Sections show an acanthotic lesion composed of relatively uniform keratinocytes. There is hyperkeratosis and pseudo horn cysts. Pigment is present in the keratinocytes composing this tumor. 1 1:03 PM [facility] DERMATOPATHOLOGY LABORATORY Disclaimer An external and internal positive and negative controls are appropriate for the histochemical, immunohistochemical and immunofluorescence stain(s) in this case (if any), except where stated explicitly. The performance characteristics of the stain(s) cited in this report were developed and its performance characteristic determined by the Dermatopathology Laboratory at [facility], directed by Dr. Christal Ratliff. These tests need not be, and therefore are not, approved by the [place] Food and Drug Administration. The tests are used for clinical purposes. Billing Codes Specimen Charges Stain Charges 61278 1 1 1:03 PM [facility] DERMATOPATHOLOGY LABORATORY Embedded Images 1 1:03 PM [facility] DERMATOPATHOLOGY LABORATORY Pathology/Cytolo gy TISSUE SPECIMEN FROM SKIN / Unknown 11/22/2020 3:27 AM IT ENGINEER 11/24/2020 7:49 AM IT ENGINEER us Jose Posadas MD LAB - PATHOLOGY/CYTOLOGY ORDER EDWIN Final Result DERMATOPATHOLOGY LABORATORY [facility] - Department of Dermatology [address], [address] [phone] documented in this encounter Visit Diagnoses Not on filedocumented in this encounter Care Teams Oncology Social Work Relationship Specialty Start Date End Date Joni Watt MD [address] [facility] [address] [place] [address] PCP - General Internal Medicine 06/16/21 documented as of this encounter
--- OUTSIDE RECORDS SUMMARY | 2025-05-20 14:25 | XMS_ITS | Clinical Summary ---
Author Organization [facility] Address [address] [place]: Epic Prelude ADT [place] [address] Care Team Providers Care Bid Writer Name Role Phone Unavailable Primary Care Provider Unavailabl e Social History Tobacco Use Types Packs/Day Years Used Date Smoking Tobacco: Never Assessed Sex and Gender Information Value Date Recorded Sex Assigned at Not on file Legal Sex Male 5:01 AM PACKAGE WORKER Gender Identity Not on file Sexual Orientation [...] (1 of 2) 2005 INFLUENZA VACCINE (#1) 2025 RSV VACCINE (60+ or ) (1 - 1-dose 75+ series) 2030
--- OUTSIDE RECORDS SUMMARY | 2025-05-20 14:25 | XMS_ITS | Encounter Summary ---
Author Organization [employer] Address [address] [place] [address] Care Team Providers Care Church Organist Name Role Phone Unavailable Primary Care Provider Unavailabl e Encounter Details Date Type Department Care Team (Latest Contact Info) Description 09/23/2006 Outpatient Historical HIS PATIENT IN A BED Yuriy Del Cid MD [address] [facility] [address] [place] [address] Other Chest Pain (Primary Dx) Social History Tobacco Use Types Packs/Day Years Used Date Smoking Tobacco: Never Assessed Sex and Gender Information Value Date Recorded Sex Assigned at Not on file Legal Sex Male 5:01 AM BANK CONSULTANT Gender Identity Not on file Sexual Orientation Not on file documented as of this encounter Plan of Treatment Not on file documented as of this encounter Visit Diagnoses Diagnosis Other chest pain- Primary documented in this encounter
--- NOTE | 2025-05-20 14:46 | ECG_ITS ---
Test Date: 2025-05-20 15:00:06 Measurements Intervals [place] Rate: 64 P: 33 TN: 145 QRS: 46 QRSD: 97 T: 43 QT: 377 QTc: 390 Interpretive Statements SINUS RHYTHM NORMAL ELECTROCARDIOGRAM No previous ECG available for comparison Electronically Signed On 05-21-2025 08:44:18 CDT by Yuriy Del Cid M.D.
== END 2025-05-20 14:20 | disposition home or self-care (01) ==
LOC: ANHSURGERY 14:22
PROVIDERS: PCP Internal Medicine; Visit Provider Surgery
DX: Z01.810 Encounter for preprocedural cardiovascular examination (principal); K42.9 Umbilical hernia without obstruction or gangrene; I10 Essential (primary) hypertension
CPT/HCPCS: 36415; 86850; 86900; 86901; 93005

== ENCOUNTER 2025-05-26 00:40 | Day surgery (SDC) | payer MEDICARE, SELFPAY ==
[2025-05-19 13:22] VITALS: BMI 25.2
--- NOTE | 2025-05-19 13:43 | PC.NURSE ---
Report to the Outpatient Waiting Room, entrance under the green pavilion located off [facility], at time __1000am on date __05/26/24 . Planned Procedure Time: __1200pm .? Time changes happen often and if your time is changed the preop area will call you the afternoon before. - You and your visitor will be asked to self-screen and do not enter if you have any COVID symptoms. Please call surgeon if you need to reschedule. - A mask is optional within the hospital at this time. Patients may have clear liquids (water, carbonated beverages, clear teas, apple juice) until 3 hours prior to surgery with a maximum of 20 ounces. - No food from midnight until time of surgery and no smoking, or chewing tobacco (or any form of nicotine). No chewing gum, candy or mints( 0900am) Take only the following medications with a SIP of water on the morning of surgery: ___Gabapentin, Tylenol if needed DO NOT STOP ANY OF YOUR OTHER PRESCRIPTION MEDICATIONS PRIOR TO SURGERY EXCEPT THE FOLLOWING Hold all vitamins and supplements for 3 days per anesthesiologist. Medications to discontinue per physician ___Check w Sanjay regarding Diclofenac - pt to call today Date to take last dose Pending Please no make-up, nail turkmen, hairspray, perfume, deodorant, or body powder the day of surgery.? No jewelry (including any body piercings) or valuables the day of surgery, leave them at home.? Please take a shower or bath the night before, or the morning of, surgery with an antibacterial soap.? Wear comfortable, loose fitting clothing.? - Jewelry must be removed prior to entering the operating room.? Rings and piercings that are not removed may be cut off. - The hospital will not accept responsibility for valuables.? - Please leave all valuables, including medications, at home the day of surgery. If you are going home after surgery, a licensed road train driver must drive you home.? - NO public transportation without another adult if you receive anesthesia. - We recommend that an adult stay with you for 24 hours following discharge. - We also recommend that you do not drive, make important decision, drink alcoholic beverages, or take any drugs that were not prescribed by your health care provider for at least 24 hours after your discharge time. Follow any additional instructions given to you from your surgeon. Telephone instructions given to __Patient and asked if any additional questions and then verbalized understanding. Patient advised to call surgeon office or pre surgery nurse liaison [phone] if any additional questions.
[2025-05-26] VITALS (10 sets, daily range): BP systolic 134–177; BP diastolic 61–93; PULSE 44–71; RESP 10–20; TEMP 36.3–36.4; O2SAT 96–100; BMI 24.3
--- OUTSIDE RECORDS SUMMARY | 2025-05-26 00:43 | XMS_ITS | Referral Summary ---
Author Organization [facility] Address [address] [place] [address] Care Team Providers Care Grease Maker Name Role Phone Joni Watt MD Primary Care Provider [phone] Allergies No known active allergies Medications gabapentin [...] regimen. Assessment & Plan (09/20/2022 1:31 PM RUG RENOVATOR): -Recent issue with worsening LUTS. He was [...] us. Assessment & Plan (09/20/2022 1:36 PM RUG RENOVATOR): -Per patient, previous PSA done Aug 2021 [...] symptoms. Assessment & Plan (09/21/2021 3:59 PM RUG RENOVATOR): -On tamsulosin with improvement in urinary symptoms. [...] 12/05/2020 Assessment & Plan (12/05/2020 2:14 PM RUG RENOVATOR): Patient describes more recent history of a [...] He can continue using supplemental acetaminophen or ebzw-xth-bswncao anti-inflammatories on an as-needed basis at this time. Migraine without aura, not i ntractable, without status migrainosus 12/05/2020 Assessment & Plan (12/05/2020 2:14 PM RUG RENOVATOR): Patient's former patient of [facility] being treated with propranolol for prophylaxis of migraine without aura. He cites good efficacy and tolerability with his regiment. Prior medical records from [facility] have been requested although are yet to be obtained. Another request will be placed today. I have renewed his propranolol as previously scheduled at 40 mg daily. I will plan on seeing him back in 1 year. Oropharyngeal dysphagia 12/05/2020 Assessment & Plan (12/05/2020 2:12 PM RUG RENOVATOR): Patient's history of oropharyngeal dysphagia diagnosed following [...] 09/21/2021 Assessment & Plan (09/21/2021 3:57 PM RUG RENOVATOR): -Resolved several days after first appearance. Assessment [...] 09/21/2021 Assessment & Plan (09/21/2021 3:58 PM RUG RENOVATOR): -Completely resolved after seeing evaporative cooler installer and having banding of internal hemorrhoids. Immunizations [...] on file Legal Sex Male 1:43 AM RUG RENOVATOR Gender Identity Not on file Sexual Orientation Not on file Last Filed Vital Signs Vital Sign Reading Time Taken Comments Blood Pressure 112/66 10/20/2024 8:00 AM RUG RENOVATOR Pulse 66 10/20/2024 8:00 AM RUG RENOVATOR Temperature 36.3 C (97.3 F) 10/20/2024 8:00 AM RUG RENOVATOR Respiratory Rate 18 10/20/2024 8:00 AM RUG RENOVATOR Oxygen Saturation 97% 10/20/2024 8:00 AM RUG RENOVATOR Inhaled Oxygen Concentration - - Weight 71.3 kg (157 lb 3.2 oz) 10/19/2024 12:25 PM RUG RENOVATOR Height 170.2 cm (5' 7) 10/19/2024 12:25 PM RUG RENOVATOR Body Mass Index 24.62 10/19/2024 12:25 PM RUG RENOVATOR Plan of Treatment Not on file Medical Devices Implanted Type Area Machine Heel Sprayer Device Identifier Shelf Expiration Date Model / Serial / Lot Plate Plate Right: Hip Depuy [employer] Inc [place] 6.5mm 15mm Acetabular Cancellous Screw Bone Sterile - [id number] Implanted:Qty: 1 on 10/19/2024 at [facility] Right: Hip Depuy Orthopaed[employer] Inc 08/02/2034 / / [id number] Depuy Orthopaed[employer] Inc Shell Acetabular Emsys Shl 3hole 58 [id number] - [id number] Implanted:Qty: 1 on 10/19/2024 at [facility] Right: Hip [employer]uy Orthopaedics Inc 12/31/2033 [id number] / / [id number] Depuy Orthopaed[employer] Inc Liner Acetabular 63f81xq Emphasys Polyethylene Hip Joint Mb [id number] - [id number] Implanted:Qty: 1 on 10/19/2024 at [facility] Right: Hip [employer]uy Orth[employer] Inc 12/31/2028 [id number] / / [id number] Depuy [employer] Inc [place] 6.5mm 20mm Acetabular Cancellous Screw Bone Sterile 1217-- - [id number] Implanted:Qty: 1 on 10/19/2024 at [facility] Right: Hip Depuy Orthopaed[employer] Inc 07/03/2034 121-500 / / [id number] Depuy Orth[employer]ed[employer] Inc Articul/Hank 28mm Cementless Hip +1.5mm 12/14 Taper Head Femoral Latex Free [id number] - [id number] Implanted:Qty: 1 on 10/19/2024 at [facility] Right: Hip Depuy Orthopaed[employer] Inc 06/02/2027 [id number] / / [id number] Depuy [employer] Inc [place] 6.5mm 30mm Acetabular Cancellous Screw Bone Revision 121 - [id number] Implanted:Qty: 1 on 10/19/2024 at [facility] Right: Hip Depuy Orthopaedics Inc 07/03/2034 121 / / [id number] Depuy Orthopaed[employer] Inc Actis Collar Hip 7 High Offset Stem Femoral [id number] - [id number] Implanted:Qty: 1 on 10/19/2024 at [facility] Right: Hip [employer]uy Orth[employer]ed[employer] Inc 08/02/2034 [id number] / / [id number] Depuy [employer] Inc Liner Acetabular 56-58mm Emphasys Metallic Strl Dual Mbl [id number] - [id number] Implanted:Qty: 1 on 10/19/2024 at [facility] Right: Hip [employer]uy Orth[employer] Inc 07/03/2034 [id number] / / [id number] Procedures Procedure Name Priority Date/Time Associated Diagnosis Comments PSA SCREENING Routine 08/27/2021 from Last 3 Months or Most Recently Relevant to Health Maintenance Results * PSA SCREENING (08/27/2021) PSA Screen 0.9 EXTERNAL LAB 08/27/2021 us Historical Provider MD HEALTH MAINTENANCE Final Result EXTERNAL LAB from Last 3 Months or Most Recently Relevant to Health Maintenance Insurance [employer] MEDICARE [employer] MEDICARE Advance Directives For more information, please contact: [phone] * Full Code (Latest Code Status on File) Date Activated Date Inactivated Comments 10/19/2024 6:26 PM 10/20/2024 4:25 PM Care Teams Grease Maker Relationship Specialty Start Date End Date Joni Watt MD [address] [facility] [address] [place] [address] PCP - General 04/24/12
--- OUTSIDE RECORDS SUMMARY | 2025-05-26 00:43 | XMS_ITS | Data Portability ---
Author Organization [facility] [employer], [employer], [facility] Address [address] [address] Care Team Providers Care Supervisor Facepiece Line Name Role Phone KATARINAKERON Emery Primary Care Provider [phone] Assessment No assessment recorded. Plan of Treatment Reminders Order Date Submit Date Provider Last Modified By Organization Details Last Modified Time Details Appointments None recorded. Lab PSA, serum or plasma 2018 019 Not available 9 15:39:48 CBC w/ auto diff 2018 019 [email or web address] Not available 9 15:39:48 vitamin D, 25-hydroxy, total, serum 2018 019 Not available 9 15:39:48 testosteron e, free, serum 2018 019 [email or web address] Not available 9 15:39:48 testosteron e, total, serum 2018 019 [email or web address] Not available 9 15:39:48 Referral None recorded. Procedures None recorded. Surgeries None recorded. Imaging XR, lumbar spine - room 7 2018 019 [email or web address] Not available 9 15:39:48 MRI, lumbar spine, w/o contrast - History of DDD, has failed PT, oral and injectable pain control/aamn roid. Please compare to MRI from 08/17/18. Send to [facility] [place]. Will prescribe pt valium prior to scan. 12/18/ 2019 12/18/2 019 AMBER [facility] [address] [place], [address], 0 15:37:58 Medication Orders None recorded. Patient [...] record ed. [email or web address] [facility] [address] [place], [address], 11/15/2019 16:16:49 11/15/19 20 11/15/2019 MRI, lumba r spine , w/o contr ast No observ ation record ed. [email or web address] [facility] [address] [place], [address], 11/17/2019 13:26:49 11/20/19 20 11/15/2019 unk No observ ation record ed. [email or web address] [facility] [address] [place], [address], 11/24/2019 16:26:54 Result Notes None recorded. Problems No Known Problems Procedures Surgical History Date Name Laterality Status Provider Name and Address Organization Details Recorded Time 11/17/19 Generic Procedure completed SUSANA MCKENNA [address], [place], [address], [facility] [employer] [facility], [facility] 11/17/2019 10:07:04 10/20/20 Generic Procedure completed SUSANA MCKENNA [address] [facility] [address], [facility] [place], [address], [facility] [employer] [facility], [facility] 11/17/2019 09:28:44 Shoulder Surgery completed Margaret Wilson [facility] 10/20/2019 13:20:42 Cardiac Catheterization completed Margaret [facility] 10/20/2019 13:20:42 [facility] 10/20/2019 13:20:42 Imaging Results None recorded. Procedure [...] Updated DateTime 11/17/2019 170.18 cm 25.8 kg/m2 12082.74 g 73 /min 131/90 mm[Hg] Comfort ENRIQUE [employer] [facility] 11/17/2019 09:28:19 Date Recorded Body height Body mass index (BMI) Body weight Heart rate Systolic And Diastolic Provider Name and Address Organization Details Last Updated DateTime 10/20/2019 170.18 cm 25.8 kg/m2 82387.74 g 62 /min 143/79 mm[Hg] Margaret Wilson [employer] [facility] 10/20/2019 13:20:08 Social History Question Answer Notes LastModified by [employer] Details LastModified Time Tobacco Smoking Status Never Smoker Margaret pena [employer] [facility] 10/20/2019 13:20:36 Auto Related Injury? No Information [...] Status Question Answer Note LastModified by [employer] Details LastModified Time What is your level [...] Stones N Hyperthyroidism N Breast Cancer N Head Trauma/Injury N Hernia N Lung Cancer N Hypothyroidism N Lung Disease N Blood Clots N Depression N COPD N Pacemaker N Anxiety Disorder N Arthritis Y Kidney Cancer N Cancer N Stroke N Neck Injury N Leg or Foot Ulcers N High Cholesterol Y Liver Disease N Rheumatoid Arthritis N Headaches N Fibromyalgia N Kidney Disease N Heart Problems N Prostate Cancer N Migraines Y Thyroid Problems N Anemia N Multiple Sclerosis N Ulcers N Heart Attack ([place]) N Diabetes N Bleeding Disorder N Seizures/Epilepsy [...] SNOMED-CT Code Diagnosis ICD10 Code Diagnosis Note [id number] SUSANA MCKENNA [facility] [address] [place] [address] 10/20/2019 12:25:58 10/28/2019 11:20:36 Low back pain 457891412 M54.5 Screening procedure 2012 5006 Z13.9 R53.83 M89.9 M94.9 Z12.5 Z01.812 E55.9 Degenerati on of lumbar intervertebral disc 07026070 M51.36 Arthropath y of lumbar facet joint 630390901 M46.96 Lumbar radiculopathy 128 878255 M54.16 At todays office visit the patient's [...] diagnosis including pathophysi ology and treatment options. [id number] SUSANA MCKENNA [facility] [address] [place] [address] 11/17/2019 09:16:26 12/07/2019 16:19:07 Degeneration of lumbar intervertebral disc 55759310 M51.36 Spinal aman nosis of lumbar region 66364767 M48.061 Degenerati on of thoracic intervertebral disc 62636734 M51.34 At today's office visit the patient's [...] the need for [facility]P at [facility] the 12-week govind. The risk and benefits [...] ID Guarantor Name 08/08/2020 1 [place] [id number] Barrington Muse [id number] 50 Barrington Muse Notes Date Note Type [...] Date of last injection 06/17/2019 Imported from [employer] on 10/20/2019 SUSANA MCKENNA [address], [address], [employer] 11/17/2019 09:28:53 11/17/2019 text/html 64 year old patient presents today with lowe back pain still, following up on MRI to review plan of care for treatment. Pain Score Pain scale from 0-10, 10 being the worst 4 Chief Complaint Pain scale from 0-10, 10 being the worst 4 Imported from [employer] on 11/17/2019 SUSANA MCKENNA [address] [facility] [address], [place], [address], [employer], [employer] 11/17/2019 10:10:45
--- OUTSIDE RECORDS SUMMARY | 2025-05-26 00:43 | XMS_ITS ---
Author Name Auto Generated, Auto Generated Organization [employer] [facility] ice Address [address] [place] [address] Phone [phone] Care Team Providers Care Senior Scientist Name Role Phone Cristian Triana Unavailable [phone] Joni Watt Unavailable [phone] Functional Status No Results Mental Status No Results Allergies and Intolerances Name Onset Date Reaction Severity No Known Allergies (Allergy) FriOct 17 10:26:00 EST 2023 Problems Active Concerns * Aftercare following joint replacement surgery* Code: * Start Date: FriOct 20 00:00:00 EST 2023 * End Date: * Text: Reason for Referral
--- OUTSIDE RECORDS SUMMARY | 2025-05-26 00:43 | XMS_ITS | Clinical Summary ---
Author Organization [facility] Address [address] 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
--- OUTSIDE RECORDS SUMMARY | 2025-05-26 00:43 | XMS_ITS ---
Author Name Auto Generated, Auto Generated Organization [facility] ice Address [address] [place] [address] Phone [phone] Care Team Providers Care Cabin Agent Name Role Phone Cristian Triana Unavailable [phone] Joni Watt Unavailable [phone] Functional Status Mental Status Allergies and Intolerances Problems Reason for Referral
--- OUTSIDE RECORDS SUMMARY | 2025-05-26 00:43 | XMS_ITS | Clinical Summary ---
Author Organization [facility] [employer] Address [address] [place] [address] Care Team Providers Care Shell Molder Name Role Phone Joni Watt MD Primary Care Provider [phone] Source Comments [facility] [employer],non-owned Affiliates and Associated Physician Practices is amultiple site organization consisting of ambulatory clinics and hospital sitesin [place], [place], [place] and [place]. This disclosure is being madepursuant to the Care Everywhere program and may not contain all information available regarding this patient. 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 Gender Identity Not on file Sexual Orientation [...] METABOLIC PANEL (06/16/2021 4:12 PM CDT) Pathologist [facility] Glucose 104 70 - 105 mg/dL 06/16/2021 4:36 PM CDT [facility] Sodium 139 136 - 145 mmol/L 06/16/2021 4:36 PM CDT [facility] Potassium 5.1 3.5 - 5.1 mmol/L 06/16/2021 4:36 PM CDT [facility] Chloride 106 98 - 107 mmol/L 06/16/2021 4:36 PM CDT [facility] CO2 22(L) 23 - 31 mmol/L [...] CDT 06/16/2021 4:18 PM CDT Mary Jane SUPERVISOR CORE SHOP-OCEANOGRAPHER ASSISTANT LAB - CHEMISTRY ORDERAB LES Final Result Performing Organization Address City/State/[facility] Co de Phone Number [facility] [address] [place], [place] [phone] from Last 3 Months or Most Recently Relevant to Health Maintenance Insurance MEDICARE MEDICARE COMMERCIAL GENERIC Care Teams Shell Molder Relationship Specialty Start Date End Date Joni Watt MD [address] [place] [address] [place] [address] PCP - General Internal Medicine 06/16/21
--- OUTSIDE RECORDS SUMMARY | 2025-05-26 00:43 | XMS_ITS | Clinical Summary ---
Author Organization [facility] Address [address] [place] [address] Care Team Providers Care Exhibition Carver Name Role Phone Joni Watt MD Primary Care Provider [phone] Allergies No known active allergies Medications gabapentin [...] regimen. Assessment & Plan (09/20/2022 1:31 PM BACK PADDER): -Recent issue with worsening LUTS. He was [...] us. Assessment & Plan (09/20/2022 1:36 PM BACK PADDER): -Per patient, previous PSA done Aug 2021 [...] symptoms. Assessment & Plan (09/21/2021 3:59 PM BACK PADDER): -On tamsulosin with improvement in urinary symptoms. [...] 12/05/2020 Assessment & Plan (12/05/2020 2:14 PM BACK PADDER): Patient describes more recent history of a [...] He can continue using supplemental acetaminophen or itbc-mzh-eoaarqh anti-inflammatories on an as-needed basis at this time. Migraine without aura, not i ntractable, without status migrainosus 12/05/2020 Assessment & Plan (12/05/2020 2:14 PM BACK PADDER): Patient's former patient of [facility] being treated with propranolol for prophylaxis of migraine without aura. He cites good efficacy and tolerability with his regiment. Prior medical records from [facility] have been requested although are yet to be obtained. Another request will be placed today. I have renewed his propranolol as previously scheduled at 40 mg daily. I will plan on seeing him back in 1 year. Oropharyngeal dysphagia 12/05/2020 Assessment & Plan (12/05/2020 2:12 PM BACK PADDER): Patient's history of oropharyngeal dysphagia diagnosed following [...] 09/21/2021 Assessment & Plan (09/21/2021 3:57 PM BACK PADDER): -Resolved several days after first appearance. Assessment [...] 09/21/2021 Assessment & Plan (09/21/2021 3:58 PM BACK PADDER): -Completely resolved after seeing fast food restaurant manager and having banding of internal hemorrhoids. Immunizations Immunization Administration Dates Next Due Pfizer SARS-CoV-2 Monovalent Vaccination (12+ Yrs) PURPLE 02/07/2021,01/24/2021 Surgical History Surgery Date Site/Laterality Comments [place] CHOLECYSTECTOMY Cholecystectomy - (Added by MY [facility]) [...] on file Legal Sex Male 1:43 AM BACK PADDER Gender Identity Not on file Sexual Orientation Not on file Obstetrics History Last Filed Vital Signs Vital Sign Reading Time Taken Comments Blood Pressure 112/66 10/20/2024 8:00 AM BACK PADDER Pulse 66 10/20/2024 8:00 AM BACK PADDER Temperature 36.3 C (97.3 F) 10/20/2024 8:00 AM BACK PADDER Respiratory Rate 18 10/20/2024 8:00 AM BACK PADDER Oxygen Saturation 97% 10/20/2024 8:00 AM BACK PADDER Inhaled Oxygen Concentration - - Weight 71.3 kg (157 lb 3.2 oz) 10/19/2024 12:25 PM BACK PADDER Height 170.2 cm (5' 7) 10/19/2024 12:25 PM BACK PADDER Body Mass Index 24.62 10/19/2024 12:25 PM BACK PADDER Plan of Treatment Health Maintenance Due Date [...] 10/20/2025 10/20/2024 Medical Devices Implanted Type Area Director It Device Identifier Shelf Expiration Date Model / Serial / Lot Plate Plate Right: Hip [employer] [place] 6.5mm 15mm Acetabular Cancellous Screw Bone Sterile 1217-15-500 - [id number] Implanted:Qty: 1 on 10/19/2024 at [facility] Right: Hip [employer] Inc 08/02/2034 121-15-500 / / [id number] Dep[employer] Shell Acetabular Emsys Shl 3hole 58 [id number] - [id number] Implanted:Qty: 1 on 10/19/2024 at [facility] Right: Hip [employer] Inc 12/31/2033 [id number] / / [id number] [employer] Liner Acetabular 87p45vo Emphasys Polyethylene Hip Joint Mb [id number] - [id number] Implanted:Qty: 1 on 10/19/2024 at [facility] Right: Hip [employer] Inc 12/31/2028 [id number] / / [id number] Dep[employer] [place] 6.5mm 20mm Acetabular Cancellous Screw Bone Sterile 1217-20-500 - [id number] Implanted:Qty: 1 on 10/19/2024 at [facility] Right: Hip [employer] Inc 07/03/2034 121-500 / / [id number] [employer] Articul/Hank 28mm Cementless Hip +1.5mm 12/14 Taper Head Femoral Latex Free [id number] - [id number] Implanted:Qty: 1 on 10/19/2024 at [facility] Right: Hip [employer] 06/02/2027 [id number] / / [id number] [employer] [place] 6.5mm 30mm Acetabular Cancellous Screw Bone Revision - [id number] Implanted:Qty: 1 on 10/19/2024 at [facility] Right: Hip [employer] Inc 07/03/2034 / / [id number] Dep[employer] Actis Collar Hip 7 High Offset Stem Femoral [id number] - [id number] Implanted:Qty: 1 on 10/19/2024 at [facility] Right: Hip [employer]uy [employer] Inc 08/02/2034 [id number] / / [id number] Dep[employer] Liner Acetabular 56-58mm Emphasys Metallic Strl Dual Mbl [id number] - [id number] Implanted:Qty: 1 on 10/19/2024 at [facility] Right: Hip [employer] Inc 07/03/2034 [id number] / / [id number] Procedures Procedure Name Priority Date/Time Associated Diagnosis Comments PSA SCREENING Routine 08/27/2021 from Last 3 Months or Most Recently Relevant to Health Maintenance Results * PSA SCREENING (08/27/2021) PSA Screen 0.9 EXTERNAL LAB 08/27/2021 us Historical Provider HEALTH MAINTENANCE Final Result EXTERNAL LAB from Last 3 Months or Most Recently Relevant to Health Maintenance Insurance MEDICARE [employer] MEDICARE [employer] INSURANCE [employer] MEDICARE Advance Directives For more information, please contact: [phone] * Full Code (Latest Code Status on File) Date Activated Date Inactivated Comments 10/19/2024 6:26 PM 10/20/2024 4:25 PM Care Teams Exhibition Carver Relationship Specialty Start Date End Date Joni Watt MD [address] [facility] [address] [place], [place] [phone] PCP - General 04/24/12
--- OUTSIDE RECORDS SUMMARY | 2025-05-26 00:43 | XMS_ITS | Encounter Summary ---
Author Organization [employer] Address 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
--- OUTSIDE RECORDS SUMMARY | 2025-05-26 00:43 | XMS_ITS | Encounter Summary ---
Author Organization [facility] Address [address] [place] [address] Care Team Providers Care Food And Beverage Attendant Name Role Phone Joni Watt MD Primary Care Provider [phone] Encounter Details Date Type Department Care Team (Late st Contact Info) Description 11/24/[address] [facility] DermPath Lab [address] [place] [id number] Jose Posadas MD [address] [place] [address] Social History Tobacco Use Types Packs/Day Years Used Date Smoking Tobacco: Never Assessed Sex and Gender Information Value Date Recorded Sex Assigned at Not on file Legal Sex Male 6:24 PM THERAPE[employer]IC SUPPORT STAFF Gender Identity Not on file Sexual Orientation Not on file documented as of this encounter Plan of Treatment Not on file documented as of this encounter Procedures Procedure Name Priority Date/Time Associated Diagnosis Comments DERMATOPATHOLOGY Routine 11/22/2020 3:27 AM THERAPEUTIC SUPPORT STAFF documented in this encounter Results * DERMATOPATHOLOGY (11/22/2020 3:27 AM THERAPEUTIC SUPPORT STAFF) Case Report Dermatopathology Report Case: [id number] Authorizing Provider: Jose Posadas MD Collected: 11/22/2020 03:27 AM Ordering Location: [facility] DermPath Lab Received: 11/24/2020 07:49 AM Pathologist: Magdalene Urrutia MD Specimen: Skin, right post scalp 1:03 PM [employer]ERAPE[employer]IC SUPPORT STAFF DERMATOPATHOLOGY LABORATORY Final Diagnosis Specimen A. SKIN, right post scalp: PIGMENTED SEBORRHEIC KERATOSIS (L82.1) 1 1:03 PM [facility] DERMATOPATHOLOGY LABORATORY at [address] THERAPEUTIC SUPPORT STAFF Clinical History SK vs MM. Path# [id number]. 1 1:03 PM [facility] DERMATOPATHOLOGY LABORATORY Gross Description Specimen A: Received is one formalin filled container labeled with the patient's name and designated right post scalp. The specimen consists of a shave biopsy measuring 5x2u0yo. Jar 0. 1 1:03 PM [facility] DERMATOPATHOLOGY LABORATORY Microscopic Description Specimen A. SKIN, right post scalp: Sections show an acanthotic lesion composed of relatively uniform keratinocytes. There is hyperkeratosis and pseudo horn cysts. Pigment is present in the keratinocytes composing this tumor. 1 1:03 PM [facility] DERMATOPATHOLOGY LABORATORY Disclaimer An external and internal positive and negative controls are appropriate for the histochemical, immunohistochemical and immunofluorescence stain(s) in this case (if any), except where stated explicitly. The performance characteristics of the stain(s) cited in this report were developed and its performance characteristic determined by the Dermatopathology Laboratory at [facility], directed by Dr. Christal Ratliff. These tests need not be, and therefore are not, approved by the [place] Food and Drug Administration. The tests are used for clinical purposes. Billing Codes Specimen Charges Stain Charges 53602 1 1 1:03 PM [facility] DERMATOPATHOLOGY LABORATORY Embedded Images 1 1:03 PM [facility] DERMATOPATHOLOGY LABORATORY Pathology/Cytolo gy TISSUE SPECIMEN FROM SKIN / Unknown 11/22/2020 3:27 AM THERAPEUTIC SUPPORT STAFF 11/24/2020 7:49 AM THERAPEUTIC SUPPORT STAFF us Jsoe Posadas MD LAB - PATHOLOGY/CYTOLOGY ORDER EDWIN Final Result DERMATOPATHOLOGY LABORATORY [facility] - Department of Dermatology [address], [address] [phone] documented in this encounter Visit Diagnoses Not on filedocumented in this encounter Care Teams Food And Beverage Attendant Relationship Specialty Start Date End Date Joni Watt MD [address] [facility] [address] [place] [address] PCP - General Internal Medicine 06/16/21 documented as of this encounter
--- NOTE | 2025-05-26 11:27 | P.PNAN_ITS ---
Anes - Initial Pre Proc Eval Procedure: Operation Date: 05/26/25 12:00 Proposed Procedures p Robotic Assisted Laparoscopic Bilateral Inguinal Hernia Repair with Mesh, - Shruthi Grace MD s Open Umbilical Hernia Repair with Mesh - Shruthi Grace MD Date/Time: 05/26/25 11:27 Surgeon: Shurthi Grace MD Pre Op Diagnosis: bilateral Inguinal hernia, umbilical hernia Patient Data Age: 69 Gender: M Height: 1.7 m Weight: 73 kg Allergies Allergy/AdvReac Type Severity Reaction Status Date / Time levofloxacin (From Levaquin) AdvReac Severe Gastrointestinal Verified 05/19/25 13:38 Upset Home Medications ?Medication ?Instructions ?Recorded ?Confirmed ?Type terbinafine HCl 250 mg tablet 250 mg PO DAILY 05/07/23 05/19/25 History irbesartan 150 mg tablet See Rx Instructions .Route 12/23/24 05/19/25 Rx .COMPLEX #90 tabs ezetimibe 10 mg tablet See Rx Instructions .Route 01/10/25 05/19/25 Rx .COMPLEX #90 tabs gabapentin 600 mg tablet See Rx Instructions .Route .COMPLEX 02/07/25 05/19/25 History pravastatin 80 mg tablet See Rx Instructions .Route 04/08/25 05/19/25 Rx .COMPLEX #90 tabs diclofenac sodium 75 mg 75 mg PO DAILY 05/19/25 05/19/25 History tablet,delayed release tamsulosin 0.4 mg capsule 0.4 mg PO HS 05/19/25 05/19/25 History Patient hx anesthesia problems: none Family hx anesthesia problems: none Results Review: All pre-operative results and documents have been reviewed as part of the pre- operative evaluation. [facility] Past Medical History Medical History Heart problem Hypertension Pain in both testicles Abdominal pain Basal cell carcinoma of back Benign prostatic hyperplasia Laryngopharyngeal reflux disease Supraventricular tachycardia Colon polyps Degenerative joint disease Orthostatic hypotension Pneumonia Elevated PSA COVID-19 Right hip pain Small fiber neuropathy Pelvic pain in male Pain in right femur Right hip pain Mitral valve regurgitation Anxiety Chronic sore throat Allergic rhinitis Raynauds syndrome Vitamin D deficiency Hearing loss Migraines Chronic back pain Hyperlipidemia Benign essential hypertension Surgical History Surgical History Status post total hip replacement, right History of hip replacement, total right hip replacement History of lumbar surgery L3-L4 fusion, diskectomy and laminectomy L2-S1. History of basal cell carcinoma excision History of tonsillectomy History of repair of left rotator cuff History of open reduction and internal fixation (ORIF) procedure Repair of right femur fracture in 1974. History of cholecystectomy History of cardiac radiofrequency ablation For supraventricular tachycardia. History of cardiac catheterization (12/16/13) Minimal, nonobstructing disease. History of colonoscopy with polypectomy Family History Family History Father Family history of malignant neoplasm of urinary bladder Cancer Mother Acute myocardial infarction Family history of cardiovascular disease Family history of heart disease in male family member before age 55 Hypertension Heart problem Social History Social History Social History: Surrogate medical decision maker: Yvrose Burgos, spouse. Code status: Full code. Smoking status: Never smoker Second hand tobacco smoke exposure: No Alcohol intake: never Alcohol use details: 1 per month Substance use: never Substance use type: marijuana Last use: highschool Do You Feel Safe in your Home?: Yes Lack of Transportation: No Lack of Food: Never True Current Housing: I Have Housing Concerned About Future Housing: No Difficulty Paying Gas/Electric Bills: No Difficulty Paying for Meds: No Currently Unemployed: No Education: Bachelor's Degree Difficulty w/ Childcare or Family Care: No Living arrangements: with family Additional living arrangements comments: Lives with spouse in [place]. 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 Spiritual care concerns: No Anes - Eval Final PreProcedure Day of Procedure 05/26/25 11:27 Patient weight: normal Lungs: normal air movement Airway: Mallampati scale class II Neurological: alert and oriented Last oral intake: >/= 8 hours ASA classification: II Emergent: no Anesthetic plan: proceed Anesthesia type and monitoring: general ETT and standard monitoring Results Review: All pre-operative results and documents have been reviewed as part of the pre- operative evaluation. HTN, hyperlipidemia, active working outdoors, no cp or sob. Informed Consent: The patient's anesthetic plan and its attendant risks and benefits were discussed with the patient/family/POA. Questions were solicited and answers provided to the satisfaction of the patient/family/POA.
--- NOTE | 2025-05-26 11:39 | PM.IMHP ---
H&P: HPI History of Present Illness Date/Time: 05/26/25 11:39 Chief Complaint: bilateral inguinal hernia Narrative: Barrington is a 69 y/o male who presents for evaluation of hernias at the request of Dr. Watt. Patient's symptoms started about 20 years ago. He reports experiencing some discomfort in bilateral groin areas. He was informed that he has an umbilical hernia. He does note a small bulge in his umbilicus but is otherwise asymptomatic. U/S was done at [facility] on 01/25/25 which showed an incidental 8 mm right epididymal cyst. CT was also done on 01/25/25 which showed umbilical hernia and bilateral inguinal hernias containing fat. He is having regular BM's without difficulty. He has a surgical history of cholecystectomy. Review of Systems Review of Systems: All systems reviewed & are unremarkable except as noted in HPI and below PMFSH Past Medical History Medical History Heart problem Hypertension Pain in both testicles Abdominal pain Basal cell carcinoma of back Benign prostatic hyperplasia Laryngopharyngeal reflux disease Supraventricular tachycardia Colon polyps Degenerative joint disease Orthostatic hypotension Pneumonia Elevated PSA COVID-19 Right hip pain Small fiber neuropathy Pelvic pain in male Pain in right femur Right hip pain Mitral valve regurgitation Anxiety Chronic sore throat Allergic rhinitis Raynauds syndrome Vitamin D deficiency Hearing loss Migraines Chronic back pain Hyperlipidemia Benign essential hypertension Surgical History Surgical History Status post total hip replacement, right History of hip replacement, total right hip replacement History of lumbar surgery L3-L4 fusion, diskectomy and laminectomy L2-S1. History of basal cell carcinoma excision History of tonsillectomy History of repair of left rotator cuff History of open reduction and internal fixation (ORIF) procedure Repair of right femur fracture in 1974. History of cholecystectomy History of cardiac radiofrequency ablation For supraventricular tachycardia. History of cardiac catheterization (12/16/13) Minimal, nonobstructing disease. History of colonoscopy with polypectomy Family History Family History Father Family history of malignant neoplasm of urinary bladder Cancer Mother Acute myocardial infarction Family history of cardiovascular disease Family history of heart disease in male family member before age 55 Hypertension Heart problem Social History Social History Social History: Surrogate medical decision maker: Yvrose Burgos, spouse. Code status: Full code. Smoking status: Never smoker Second hand tobacco smoke exposure: No Alcohol intake: never Alcohol use details: 1 per month Substance use: never Substance use type: marijuana Last use: highschool Do You Feel Safe in your Home?: Yes Lack of Transportation: No Lack of Food: Never True Current Housing: I Have Housing Concerned About Future Housing: No Difficulty Paying Gas/Electric Bills: No Difficulty Paying for Meds: No Currently Unemployed: No Education: Bachelor's Degree Difficulty w/ Childcare or Family Care: No Living arrangements: with family Additional living arrangements comments: Lives with spouse in [place]. 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 Spiritual care concerns: No Meds Home Medications and Allergies Home Medications ?Medication ?Instructions ?Recorded ?Confirmed ?Type terbinafine HCl 250 mg tablet 250 mg PO DAILY 05/07/23 05/19/25 History irbesartan 150 mg tablet See Rx Instructions .Route 12/23/24 05/19/25 Rx .COMPLEX #90 tabs ezetimibe 10 mg tablet See Rx Instructions .Route 01/10/25 05/19/25 Rx .COMPLEX #90 tabs gabapentin 600 mg tablet See Rx Instructions .Route .COMPLEX 02/07/25 05/19/25 History pravastatin 80 mg tablet See Rx Instructions .Route 04/08/25 05/19/25 Rx .COMPLEX #90 tabs diclofenac sodium 75 mg 75 mg PO DAILY 05/19/25 05/19/25 History tablet,delayed release tamsulosin 0.4 mg capsule 0.4 mg PO HS 05/19/25 05/19/25 History Allergies Allergy/AdvReac Type Severity Reaction Status Date / Time levofloxacin (From Levaquin) AdvReac Severe Gastrointestinal Verified 05/19/25 13:38 Upset Exam Const: General: cooperative, comfortable and no acute distress Resp: Auscultation: clear to auscultation bilaterally Cardio: Rate: regular rate Rhythm: regular rhythm GI: Inspection: normal to inspection and non-distended GI Palp: No abdominal tenderness, Yes Soft to palpation and Yes Hernia present Other: small umbilical hernia, landon IH hernia moderate reducible Assessment and Plan Assessment and plan (1) Bilateral inguinal hernia: Qualifiers: Obstruction and gangrene presence: without obstruction or gangrene Recurrence: non-recurrent Qualified Code(s): K40.20 - Bilateral inguinal hernia, without obstruction or gangrene, not specified as recurrent Code(s): K40.20 - Bilateral inguinal hernia, without obstruction or gangrene, not specified as recurrent Status: Acute Assessment and Plan: will set up for bilateral inguinal hernia repair with mesh robotic assisted (2) Umbilical hernia without mention of obstruction or gangrene: Qualifiers: Obstruction and gangrene presence: without obstruction or gangrene Qualified Code(s): K42.9 - Umbilical hernia without obstruction or gangrene Code(s): K42.9 - Umbilical hernia without obstruction or gangrene Status: Acute Assessment and Plan: completely asymptomatic, continue observation at this point
--- NOTE | 2025-05-26 11:42 | WPDHPUPDATE1 ---
History and Physical Update Update Date/Time: 05/26/25 11:42 History and Physical has been reviewed, including an updated exam of the patient. There are NO changes in the patient's condition. Risks, benefits, and alternatives have been discussed and questions answered. Patient agrees to proceed with procedure.
[2025-05-26] MEDS: ACETAMINOPHEN 500 MG TABLET 1000 MG PO (12:00)
[2025-05-26] MEDS: LACTATED RINGERS 1,000 ML 30 ML IV CONT ×3 (12:15→16:50)
[2025-05-26] MEDS: KETOROLAC 15 MG/ML VIAL (*BKC) IV PUSH (12:29)
[2025-05-26] MEDS: ceFAZolin 2 GM in SODIUM CHLORIDE 0.9% IV 50 ML 100 ML IVPB (14:03)
[2025-05-26] MEDS: LIDO 1%/EPINEPHRINE 1:100,000 20 ML VIAL 30 ML INFILTRATE (14:38)
[2025-05-26] MEDS: BUPivacaine HCL 0.5% 10 ML AMP 30 ML INFILTRATE (14:38)
[2025-05-26] MEDS: ONDANSETRON INJ 4 MG/2 ML VIAL IV PUSH (16:23)
[2025-05-26] MEDS: fentaNYL CITRATE INJ (*CRX) 100 MCG/2 ML VIAL 25 MCG IV PUSH ×2 (16:24→16:27)
--- NOTE | 2025-05-26 16:31 | P.OP_ITS ---
Procedure Note - Detailed Date of Procedure 05/26/25 Pre-op Diagnosis bilateral inguinal hernia, umbilical hernia Post-op Diagnosis Other (right pantaloon inguinal hernia, left indirect hernia) Procedure Performed robotic assisted bilateral inguinal hernia repair with mesh, open primary repair of umbilical hernia with defect measuring 2 cm Surgeon Shruthi Grace MD Anesthesia General and Local Indications 69-year-old male presenting to the office with bilateral groin pain. Workup, including imaging, significant for bilateral inguinal hernia. Patient also incidentally noted to have small umbilical hernia. Findings R pantaloon hernia, L indirect hernia Description of Procedure Patient was brought into the operating room and placed in the supine position. After adequate induction of general anesthesia, the patient was prepped and draped in normal sterile fashion. A time-out was then done to verify the patient's identity, as well as the procedure being performed. I began by making a 8 mm incision in the supraumbilical region, a Veress needle was then placed into the peritoneal cavity. CO2 gas was then insufflated and after adequate pneumoperitoneum was achieved, the Veress needle was removed. I then placed an 8 mm trocar through this incision. I then placed the endoscope through this trocar site and under direct visualization placed 2 further 8 mm ports in the right and left mid abdomen. The [employer] robot was then docked to the 3 trocar sites. I then scrubbed out and went to the robotic console. Upon examining the pelvis, it was noted that the patient had a moderate sized right inguinal hernia. The left side was examined and a moderatel hernia defect was noted. I began by making a preperitoneal flap approximately 6 cm superior to the right sided defect. This flap was carried medially past the umbilical ligaments and laterally to the transversalis. It then began dissection of my medial compartment taking this down to the pubic tubercle. Upon dissection of this area, a moderate direct hernia was encountered. I was able to dissect and reduce this direct hernia. I then began the lateral dissection taking this down to the transversalis fascia. Once these compartments were achieved, I began dissection around the cord structures. A smaller sized indirect hernia was noted at this point. Using careful dissection, was able to reduce indirect hernia sac off the cord structures. Once this was adequately done, I went ahead and placed a large piece of 3D Max mesh into the abdominal cavity. The mesh was carefully positioned, centering the center of the mesh over the larger direct defect. Once this was done, was very satisfied with our repair. Using 3-0 Vicryl sutures, I tacked the mesh medially to Reuben's ligament. Two lateral sutures were placed from the mesh to the transversalis fascia. I then began on the left side by making a preperitoneal flap approximately 6 cm superior to the left sided defect. This flap was carried medially past the umbilical ligaments and laterally to the transversalis. It then began dissection of my medial compartment taking this down to the pubic tubercle. I then began the lateral dissection taking this down to the transversalis fascia. Once these compartments were achieved, I began dissection around the cord structures. A moderate indirect hernia was noted at this point. Using careful dissection, was able to reduce indirect hernia sac off the cord structures. Once this was adequately done, I went ahead and placed a large piece of 3D Max mesh into the abdominal cavity. The mesh was carefully positioned, centering the center of the mesh over the indirect defect. Once this was done, was very satisfied with our repair. Using 3-0 Vicryl sutures, I tacked the mesh medially to Reuben's ligament. Two lateral sutures were placed from the mesh to the transversalis fascia.I then closed the peritoneal flap bilaterally with running 2.0 V Lock suture x 2. The abdomen was then desufflated, and all ports were removed. All incisions were then closed with the 4.0 monocryl suture. Dermabond was placed on each wound. I then made a infraumbilical curvilinear incision under the umbilicus. This was carried down through the dermis and into the subcutaneous tissue. Subcutaneous tissue was dissected and this was carried down to the anterior fascia. I then dissected superiorly around the umbilicus and hernia. I was able to dissect the hernia sac off the umbilicus. I then opened and excised the hernia sac to check the content. This was noted to be largely preperitoneal fat and pathology free. This was then reduced back into the abdominal cavity. The defect was noted to be approximately 2 cm. Given the small size, I repaired this defect primary. Interrupted 0 Ethibond sutures were used to close this defect primarily. I then reapproximated the umbilicus down to the fascial repair with a 3-0 Vicryl U-stitch. The subcutaneous tissue was then closed with 3-0 Vicryl suture. The skin was closed with 4-0 Monocryl subcuticular suture. Dermabond was then placed on the wound. The patient tolerated the procedure well, was extubated in the operating room postoperatively, and will now be transferred to the recovery room in stable condition. Implants bilateral large 3DMax mesh Estimated Blood Loss 10 Drains No Packing No Pathology None sent Complications No immediate complications Condition Stable Disposition PACU [facility] Billing Surgery - Charge Forward: Surgery Billing
== END 2025-05-26 18:52 | disposition home or self-care (01) ==
PROVIDERS: PCP Internal Medicine; Visit Provider Surgery
PROC: 8E0Y4CZ Robotic Assisted Procedure of Lower Extremity, Percutaneous Endoscopic Approach (ICD-10-PCS; CPT 49650; principal; 2025-05-26 12:00)
PROC: (CPT 49650; 2025-05-26 12:00)
DX: K40.20 Bilateral inguinal hernia, without obstruction or gangrene, not specified as recurrent (principal); K42.9 Umbilical hernia without obstruction or gangrene; E78.5 Hyperlipidemia, unspecified; I11.9 Hypertensive heart disease without heart failure; N40.0 Benign prostatic hyperplasia without lower urinary tract symptoms; K21.9 Gastro-esophageal reflux disease without esophagitis; F41.9 Anxiety disorder, unspecified; J31.2 Chronic pharyngitis; E55.9 Vitamin D deficiency, unspecified; I47.10 Supraventricular tachycardia, unspecified; I95.1 Orthostatic hypotension; G62.9 Polyneuropathy, unspecified; I34.0 Nonrheumatic mitral (valve) insufficiency; I73.00 Raynaud's syndrome without gangrene; M19.90 Unspecified osteoarthritis, unspecified site; G89.29 Other chronic pain; M54.9 Dorsalgia, unspecified; F12.90 Cannabis use, unspecified, uncomplicated; Z98.890 Other specified postprocedural states; Z98.1 Arthrodesis status; Z90.49 Acquired absence of other specified parts of digestive tract; Z98.61 Coronary angioplasty status; Z86.0100 Personal history of colon polyps, unspecified; Z86.79 Personal history of other diseases of the circulatory system; Z85.828 Personal history of other malignant neoplasm of skin; Z80.52 Family history of malignant neoplasm of bladder; Z82.49 Family history of ischemic heart disease and other diseases of the circulatory system
CPT/HCPCS: 49650; 49591; S2900; J0690; A9270; C1781; J1100; J1171; J1885; J2003; J2004; J2250; J2405; J2704; J3010; J7030; J7120